=== PATIENT | male | born 1975 | race Caucasian/White ===

== ENCOUNTER 2017-06-19 21:11 | Emergency (ER) | payer MEDICARE, OTHER ==
[2017-06-19 21:40] VITALS: BP 140/88
[2017-06-19] MEDS ORDERED: TORAdol 30 mg Injection IM ONE (22:05)
[2017-06-19] MEDS ORDERED: Rocephin 1000 MG INJ IM ONE (22:06)
[2017-06-19] MEDS ORDERED: Rocephin 1000 MG INJ ONE (22:15)
[2017-06-19] MEDS ORDERED: TORAdol 30 mg Injection ONE (22:15)
[2017-06-19] MEDS ORDERED: XYLOCAINE 1% HCL 20 ML MDV ONE (22:15)
--- NOTE | 2017-06-19 22:18 | ERPHSYRPT ---
- History of Present Illness Time Seen by Provider: 06/19/17 22:15 Source: patient Exam Limitations: no limitations Patient Subjective Stated Complaint: tooth pulled 1 1/2 weeks ago. feels like it is infected. bottom left. states tongue is cracked and painful x 1 month Triage Nursing Assessment: alert and in no distress. pain in left lower teeth.. states tongue cracked. tongue is red and has ridges noted. denies fever. Physician History: tooth pulled 1 1/2 weeks ago. feels like it is infected. bottom left. states tongue is cracked and painful x 1 month Timing/Duration: day(s) Severity: moderate (tooth ache) Associated Symptoms: denies symptoms Allergies/Adverse Reactions: No Known Drug Allergies Allergy (Unverified 06/19/17 22:09) Immunizations Up to Date: Yes - Review of Systems Constitutional: No Symptoms Eyes: No Symptoms Ears, Nose, & Throat: Loose Teeth Respiratory: No Symptoms Cardiac: No Symptoms Abdominal/Gastrointestinal: No Symptoms - Past Medical History Pertinent Past Medical History: No - Past Surgical History Past Surgical History: No - Social History Smoking Status: Unknown if ever smoked Exposure to second hand smoke: No Drug Use: none Patient Lives Alone: No - Nursing Vital Signs Nursing Vital Signs: Initial Vital Signs Temperature 97.9 F 06/19/17 21:31 Pulse Rate 83 06/19/17 21:31 Respiratory Rate 18 06/19/17 21:31 Blood Pressure 140/88 06/19/17 21:31 O2 Sat by Pulse Oximetry 96 06/19/17 21:31 Pain Scale Pain Intensity 7 - Physical Exam General Appearance: no apparent distress Eye Exam: PERRL/EOMI Ears, Nose, Throat Exam: other (tooth abscess left lower gum) SpO2: 96 Oxygen Delivery: Room Air - Course Nursing assessment & vital signs reviewed: Yes Ordered Tests: Medication Summary Discontinued Medications Generic Name Dose Route Start Last Admin Trade Name Freq PRN Reason Stop Dose Admin Ceftriaxone Sodium 1,000 mg 06/19/17 22:06 Rocephin 1000 Mg Inj IM 06/19/17 22:07 STAT ONE Ketorolac Tromethamine 60 mg 06/19/17 22:05 Toradol 30 Mg Injection IM 06/19/17 22:06 STAT ONE - Progress Progress: unchanged Counseled pt/family regarding: diagnosis, need for follow-up (with dentist) - Departure Time of Disposition: 22:17 Departure Disposition: Home Clinical Impression: Abscessed tooth Condition: Stable Critical Care Time: No Referrals: ANA GIRARD MD [Primary Care Provider] - Instructions: Tooth Abscess (DC), Tooth Decay, Adult (DC) Additional Instructions: RACHELL RUBIO was seen on 06/19/17 n the Emergency Room. At that time you were treated for an emergent condition, during your visit Laboratory, Radiology and/or other procedures may have been ordered. It is very important that you follow-up with your Primary Care Physician ANA GIRARD within the next 24- 48 hours to review your Emergency Room visit and the final results of testing that was ordered. Some test results such as Urine Cultures, Blood Cultures, and other cultures if ordered will not be finalized for 24-48 hours. If you do not have a Primary Care Provider please call the medical records department at [phone] to obtain a copy of your results or you may sign into our patient portal to obtain these results by visiting us @ [email or web address] and completing the following steps: 1. Click on the Patient Portal link 2. Click the Patient Self Enrollment Link to complete the enrollment form and entering your 3. Once the enrollment form is completed you will receive an email with a temporary ID and password at the email address you provided. 4. Next choose a user name and password. Your user name must be at least 4 characters long and your password must be at least 4 characters long. 5. Choose a security question from the list and provide your answer to the question. If you already have signed into the Health Portal you may access your Health Care Information 09/11 by the following steps: 1. Login to our website @ [email or web address] 2. Enter your original user name and password. FAQS The [facility] Health Portal is an online tool that contains your Lab Results, Radiology Reports, Visit History, Discharge Instructions and Health Summary Lab and Radiology Results will not be available for 72 hours on the portal. The Portal is a secure site, passwords are encryted and URLs are re-written so they cannot be copied and pasted. You and authorized family members are the only ones who can access your Portal. Also there is a timeout feature that protects your information if you leave the Portal page open. If you have technical difficulty please use the Contact Us link on the page this will allow you to submit any questions you have regarding the Portal or you may contact the Medical Record Department at [phone]. Prescriptions: Amoxicillin 500 mg PO TID #30 tablet Naproxen 375 mg [Naprosyn 375 mg] 375 mg PO Q8H #30 tablet
[2017-06-19 22:42] VITALS: PULSE 76; O2SAT 98
== END 2017-06-19 22:42 | disposition home or self-care (01) ==
LOC: ED 21:11
DX: K04.7 Periapical abscess without sinus (principal); K08.89 Other specified disorders of teeth and supporting structures
CPT/HCPCS: 96372; 99284; J0696; J1885

== ENCOUNTER 2017-07-27 12:38 | Emergency (ER) | payer MEDICARE ==
--- NOTE | 2017-07-27 12:59 | ERPHSYRPT ---
- History of Present Illness Time Seen by Provider: 07/27/17 12:50 Source: patient Exam Limitations: no limitations Physician History: 41 y/o male comes to the ER with complaints of sore tongue, fatigue and difficulty swallowing since April. Pt has been using peroxide, viscous lidocaine and anti-inflammatories with no relief of pain. Pt describes the pain as burning, constant, 7/10 and admits that the pain has gotten worse. No fever, chills or weight loss. Timing/Duration: days Severity: severe ENT Location: mouth Prearrival Treatment: no prearrival treatment Modifying Factors: Improves With: nothing Allergies/Adverse Reactions: No Known Drug Allergies Allergy (Verified 07/27/17 12:48) Home Medications: Baclofen 10 mg [Lioresal 10 mg] 10 mg PO QID 07/27/17 [History] Benztropine Mesylate 2 mg PO QID 07/27/17 [History] Quetiapine Fumarate [Seroquel] 400 mg PO HS 07/27/17 [History] Sertraline HCl [Zoloft] 100 mg PO DAILY 07/27/17 [History] - Review of Systems Constitutional: Fatigue, Weakness, No Fever, No Chills Eyes: No Symptoms Ears, Nose, & Throat: Mouth Pain, Throat Pain Respiratory: No Cough, No Dyspnea Cardiac: No Chest Pain, No Edema, No Syncope Abdominal/Gastrointestinal: No Abdominal Pain, No Nausea, No Vomiting, No Diarrhea Genitourinary Symptoms: No Dysuria Musculoskeletal: No Back Pain, No Neck Pain Skin: No Rash Neurological: No Dizziness, No Focal Weakness, No Sensory Changes Psychological: No Symptoms Endocrine: No Symptoms All Other Systems: Reviewed and Negative - Past Medical History Pertinent Past Medical History: No - Past Surgical History Past Surgical History: No - Social History Smoking Status: Unknown if ever smoked Exposure to second hand smoke: No Drug Use: none Patient Lives Alone: No - Nursing Vital Signs Nursing Vital Signs: Initial Vital Signs Temperature 97.4 F 07/27/17 12:43 Pulse Rate 87 07/27/17 12:43 Respiratory Rate 16 07/27/17 12:43 Blood Pressure 113/89 07/27/17 12:43 O2 Sat by Pulse Oximetry 96 07/27/17 12:43 Pain Scale Pain Intensity 10 - Physical Exam General Appearance: no apparent distress, alert Eye Exam: bilateral eye: PERRL, EOMI Nasal Exam: normal inspection Throat Exam: tonsillar swelling, No tonsillar exudate Neck Exam: normal inspection, non-tender, supple Cardiovascular/Respiratory Exam: normal breath sounds, regular rate/rhythm Abdominal Exam: non-tender, soft Neurologic Exam: alert, oriented x 3, sensation nml, No motor deficits Skin Exam: normal color, warm, dry - Course Nursing assessment & vital signs reviewed: Yes Ordered Tests: Active Orders 24 hr Category Date Time Status CBC W DIFF Stat Lab 07/27/17 13:52 Completed CK-Creatinine Phosphokinase Stat Lab 07/27/17 13:52 Completed CMP Stat Lab 07/27/17 13:52 Completed CULTURE, THROAT Stat Lab 07/27/17 13:55 Received Erythrocyte Sedimentation Rate Stat Lab 07/27/17 13:52 Completed Folate (Folic Acid) Stat Lab 07/27/17 13:52 Completed MAGNESIUM Stat Lab 07/27/17 13:52 Completed [place] Screen Stat Lab 07/27/17 13:52 Completed STREP SCREEN-BETA A Stat Lab 07/27/17 13:55 Completed TSH, 3RD Generation Stat Lab 07/27/17 13:52 Completed Vitamin B12 Stat Lab 07/27/17 13:52 Completed Medication Summary Discontinued Medications Generic Name Dose Route Start Last Admin Trade Name Freq PRN Reason Stop Dose Admin Ketorolac Tromethamine 60 mg 07/27/17 13:32 07/27/17 13:38 Toradol 30 Mg Injection IM 07/27/17 13:33 60 mg STAT ONE Administration Ketorolac Tromethamine Confirm 07/27/17 13:34 Toradol 30 Mg Injection Administered 07/27/17 13:35 Dose 60 mg .ROUTE .STK-MED ONE Lab/Rad Data: Laboratory Result Diagrams 07/27/17 13:52 07/27/17 13:52 Laboratory Results 07/27/17 07/27/17 07/27/17 Range/Units 13:55 13:52 13:52 WBC (4.0-10.5) K/mm3 RBC (4.1-5.6) M/mm3 Hgb (12.5-18.0) gm/dl Hct (42-50) % MCV (78-100) fl MCH (26-32) pg MCHC (32-36) g/dl RDW (11.5-14.0) % Plt Count (150-450) K/mm3 MPV (6-9.5) fl Gran % (36.0-66.0) % Eos # (Auto) (0-0.5) Absolute Lymphs (auto) (1.0-4.6) Absolute Monos (auto) (0.0-1.3) Lymphocytes % (24.0-44.0) % Monocytes % (0.0-12.0) % Eosinophils % (0.00-5.0) % Basophils % (0.0-0.4) % Absolute Granulocytes (1.4-6.9) Basophils # (0-0.4) ESR (0-15) mm/hr Sodium 140 (137-145) mmol/L Potassium 4.1 (3.5-5.1) mmol/L Chloride 102 (98-107) mmol/L Carbon Dioxide 28 (22-30) mmol/L Anion Gap 14.5 (5-15) MEQ/L BUN 15 (9-20) mg/dL Creatinine 0.72 (0.66-1.25) mg/dL Estimated GFR > 60.0 ML/MIN Glucose 100 (74-106) mg/dL Calcium 9.3 (8.4-10.2) mg/dL Magnesium 2.0 (1.6-2.3) mg/dL Total Bilirubin 0.20 (0.2-1.3) mg/dL AST 60 H (17-59) U/L ALT 66 H (0-50) U/L Alkaline Phosphatase 90 (38-126) U/L Creatine Kinase 72 (55-170) U/L Serum Total Protein 7.5 (6.3-8.2) g/dL Albumin 4.2 (3.5-5.0) g/dL Vitamin B12 > 1000 H (239-931) pg/mL Folic Acid > 20.0 (2.76 - >20) ng/mL TSH 3rd Generation 0.778 (0.47-4.68) mIU/L Monoscreen NEGATIVE (Negative) Streptococcus Screen NEGATIVE (Negative) 07/27/17 Range/Units 13:52 WBC 5.3 (4.0-10.5) K/mm3 RBC 4.60 (4.1-5.6) M/mm3 Hgb 14.1 (12.5-18.0) gm/dl Hct 41.0 L (42-50) % MCV 89.1 (78-100) fl MCH 30.7 (26-32) pg MCHC 34.4 (32-36) g/dl RDW 13.9 (11.5-14.0) % Plt Count 233 (150-450) K/mm3 MPV 9.6 H (6-9.5) fl Gran % 63.3 (36.0-66.0) % Eos # (Auto) 0.06 (0-0.5) Absolute Lymphs (auto) 1.32 (1.0-4.6) Absolute Monos (auto) 0.52 (0.0-1.3) Lymphocytes % 25.1 (24.0-44.0) % Monocytes % 9.9 (0.0-12.0) % Eosinophils % 1.1 (0.00-5.0) % Basophils % 0.6 (0.0-0.4) % Absolute Granulocytes 3.33 (1.4-6.9) Basophils # 0.03 (0-0.4) ESR 11 (0-15) mm/hr Sodium (137-145) mmol/L Potassium (3.5-5.1) mmol/L Chloride (98-107) mmol/L Carbon Dioxide (22-30) mmol/L Anion Gap (5-15) MEQ/L BUN (9-20) mg/dL Creatinine (0.66-1.25) mg/dL Estimated GFR ML/MIN Glucose (74-106) mg/dL Calcium (8.4-10.2) mg/dL Magnesium (1.6-2.3) mg/dL Total Bilirubin (0.2-1.3) mg/dL AST (17-59) U/L ALT (0-50) U/L Alkaline Phosphatase (38-126) U/L Creatine Kinase (55-170) U/L Serum Total Protein (6.3-8.2) g/dL Albumin (3.5-5.0) g/dL Vitamin B12 (239-931) pg/mL Folic Acid (2.76 - >20) ng/mL TSH 3rd Generation (0.47-4.68) mIU/L Monoscreen (Negative) Streptococcus Screen (Negative) - Progress Progress: unchanged Progress Note: 07/27/17 15:42 The labs are all within normal limits, including strep, mono, folate and vitamin B12. Pt will be referred to a machine driller and was advised to start on oragel. - Departure Time of Disposition: 15:43 Departure Disposition: Home Clinical Impression: Mouth sores Condition: Stable Critical Care Time: No Referrals: DOCTOR,NO FAMILY [Primary Care Provider] - MANSI JOY MD [NON-STAFF PHY W/O PRIVILEGES] - Instructions: Mouth Sores (DC) Additional Instructions: Follow up with machine driller, Dr Joy in the next few days for further recommendations. You can use Oragel over the counter for symptomatic relief. Prescriptions: Saliva Stimulant Comb. No.4 [Dry Mouth] 45 ml MM BID #1 spray
[2017-07-27] MEDS ORDERED: TORAdol 30 mg Injection IM ONE (13:32)
[2017-07-27] MEDS ORDERED: TORAdol 30 mg Injection ONE (13:34)
[2017-07-27 13:44] VITALS: BP 113/84; PULSE 78; O2SAT 100
[2017-07-27 14:29] LABS: ALBUMIN 4.2 g/dL (3.5-5.0); ALKALINE PHOSPHATASE 90 U/L (38-126); ANION GAP 14.5 MEQ/L (5-15); BLOOD UREA NITROGEN 15 mg/dL (9-20); CHLORIDE 102 mmol/L (98-107); CK-Creatinine Phosphokinase 72 U/L (55-170); Calcium 9.3 mg/dL (8.4-10.2); Carbon Dioxide 28 mmol/L (22-30); Creatinine 1 0.72 mg/dL (0.66-1.25); Glucose 100 mg/dL (74-106); Potassium 4.1 mmol/L (3.5-5.1); SGOT/AST 60 U/L (17-59); SGPT/ALT 66 U/L (0-50); SODIUM 140 mmol/L (137-145); Total Protein 7.5 g/dL (6.3-8.2)
[2017-07-27 14:58] LABS: TSH, 3RD Generation 0.778 mIU/L (0.47-4.68)
[2017-07-27 15:02] LABS: BASOPHIL % 0.6 % (0.0-0.4); Basophil (Absolute #) 0.03 (0-0.4); Eosinophil % 1.1 % (0.00-5.0); Eosinophil (Absolute #) 0.06 (0-0.5); Granulocyte Absolute (ANC) 3.33 (1.4-6.9); Granulocytes % 63.3 % (36.0-66.0); Hemoglobin 14.1 gm/dl (12.5-18.0); Lymphocyte (Absolute #) 1.32 (1.0-4.6); Lymphocytes % 25.1 % (24.0-44.0); Mean Cell Volume 89.1 fl (78-100); Mean Corpuscular Hemoglobin 30.7 pg (26-32); Mean Corpuscular Hgb Concent. 34.4 g/dl (32-36); Mean Platelet Volume 9.6 fl (6-9.5); Monocyte (Absolute #) 0.52 (0.0-1.3); Monocytes % 9.9 % (0.0-12.0); Platelet Count 233 K/mm3 (150-450); Red Cell Distribution Width 13.9 % (11.5-14.0); White Blood Count 5.3 K/mm3 (4.0-10.5)
[2017-07-27 15:24] LABS: Erythrocyte Sedimentation Rate 11 mm/hr (0-15)
[2017-07-27 15:35] LABS: Folate (Folic Acid) > 20.0 ng/mL (2.76 - >20); Vitamin B12 > 1000 pg/mL (239-931)
== END 2017-07-27 15:59 | disposition home or self-care (01) ==
LOC: ED 12:38
DX: K13.70 Unspecified lesions of oral mucosa (principal); Z79.899 Other long term (current) drug therapy
CPT/HCPCS: 36415; 80053; 82550; 82607; 82746; 83735; 84443; 85025; 85652; 86308; 87070; 87430; 96372; 96374; 99282; 99284; J1885

== ENCOUNTER 2019-03-30 23:03 | Emergency (ER) | payer MEDICARE ==
[2019-03-30 23:22] VITALS: O2SAT 95
--- NOTE | 2019-03-30 23:42 | ERPHSYRPT ---
- History of Present Illness Time Seen by Provider: 03/30/19 23:21 Patient Subjective Stated Complaint: pt c/o tooth pain and cracked tongue and chest vibrating a few times lately. Triage Nursing Assessment: pt c/o tooth pain on rt side upper middle x2 months and cracked tongue x2 yrs which is very sore/tender to eat anything. Pt c/o "vibration" to chest a few times lately, which is at times "stabbing". Physician History: Patient states he has chronic tooth pain for several months. He is getting it pulled on . He complains of some increasing pain this last week. He has not seen his PCP or dentist for this. Pain states he has intermittent " chest vibrations" for several weeks. No chest pain, no SOB, no N/V, no other anginal equivalents. Timing/Duration: weeks Severity: mild ENT Location: dental Prearrival Treatment: over the counter meds Modifying Factors: Improves With: activity Associated Symptoms: denies symptoms Allergies/Adverse Reactions: bee pollen Allergy (Intermediate, Verified 03/30/19 23:30) Swelling Home Medications: Baclofen 10 mg [Lioresal 10 mg] 10 mg PO QID 07/27/17 [History] Benztropine Mesylate 2 mg PO QID 07/27/17 [History] Quetiapine Fumarate [Seroquel] 800 mg PO HS 07/27/17 [History] Sertraline HCl [Zoloft] 200 mg PO DAILY 07/27/17 [History] Propranolol HCl 10 mg PO BID 03/30/19 [History] Hx Tetanus, Diphtheria Vaccination/Date Given: Yes Hx Influenza Vaccination/Date Given: No Hx Pneumococcal Vaccination/Date Given: No Immunizations Up to Date: Yes - Review of Systems Constitutional: No Fever, No Chills Eyes: No Symptoms Ears, Nose, & Throat: No Symptoms Respiratory: No Cough, No Dyspnea Cardiac: No Chest Pain, No Edema, No Syncope Abdominal/Gastrointestinal: No Abdominal Pain, No Nausea, No Vomiting, No Diarrhea Genitourinary Symptoms: No Dysuria Musculoskeletal: No Back Pain, No Neck Pain Skin: No Rash Neurological: No Dizziness, No Focal Weakness, No Sensory Changes Psychological: No Symptoms Endocrine: No Symptoms All Other Systems: Reviewed and Negative - Past Medical History Pertinent Past Medical History: Yes Neurological History: Migraines ENT History: No Pertinent History Cardiac History: Angina Respiratory History: Bronchitis, Other Musculoskeletal History: Fractures GI Medical History: GERD History: No Pertinent History Psycho-Social History: Anxiety, Depression, Other Male Reproductive Disorders: No Pertinent History Other Medical History: schizo affective disorder, 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 - Past Surgical History Past Surgical History: Yes Neuro Surgical History: No Pertinent History Cardiac: No Pertinent History Respiratory: No Pertinent History Gastrointestinal: No Pertinent History Genitourinary: No Pertinent History Musculoskeletal: Orthopedic Surgery Male Surgical History: No Pertinent History Other Surgical History: fracture left orbit 2018 - Social History Smoking Status: Never smoker Exposure to second hand smoke: Yes Drug Use: none Patient Lives Alone: No - Nursing Vital Signs Nursing Vital Signs: Initial Vital Signs Temperature 97.4 F 03/30/19 23:20 Pulse Rate 69 03/30/19 23:20 Respiratory Rate 17 03/30/19 23:20 Blood Pressure 128/82 03/30/19 23:20 O2 Sat by Pulse Oximetry 95 03/30/19 23:20 Pain Scale Pain Intensity 7 - Physical Exam General Appearance: no apparent distress, alert Eye Exam: bilateral eye: PERRL, EOMI Nasal Exam: normal inspection Throat Exam: normal (Poor dentition. No oral swelling or airway obstruction. No obvious abscess or infection. ), pharynx normal, moist mucus membranes, No tonsillar exudate Neck Exam: supple Cardiovascular/Respiratory Exam: normal breath sounds, regular rate/rhythm Abdominal Exam: non-tender, soft Neurologic Exam: alert, oriented x 3, sensation nml, No motor deficits Skin Exam: normal color, warm, dry SpO2: 95 Ordered Tests: Active Orders 24 hr Category Date Time Status EKG STAT RT 03/30/19 23:41 Active - Progress Progress: improved Progress Note: 03/31/19 00:02 We will obtain a screen EKG for "chest vibrations." Although, I have a lower suspicion for ACS in the setting of no other anginal equivalents. 03/31/19 00:20 EKG shows NSR without STEMI or arrhythmia. We will discharge patient home at this point in time. Close follow up with PCP. - Departure Departure Disposition: Home Clinical Impression: Pain, dental, chest vibrations Condition: Stable Critical Care Time: No Referrals: BERENICE MUNOZ [Primary Care Provider] -
[2019-03-31 00:26] VITALS: BP 124/78; PULSE 71
== END 2019-03-31 00:22 | disposition home or self-care (01) ==
LOC: ED 23:03
DX: K08.89 Other specified disorders of teeth and supporting structures (principal); R07.89 Other chest pain; Z79.899 Other long term (current) drug therapy
CPT/HCPCS: 99283

== ENCOUNTER 2019-11-29 10:58 | Emergency (ER) | payer MEDICARE ==
[2019-11-29] MEDS ORDERED: TORAdol 30 mg Injection IV ONE (11:32)
[2019-11-29] MEDS ORDERED: Sodium Chloride 0.9% 1000 ML 1,000 ML IV STA ×2 (11:32→13:29)
[2019-11-29] MEDS ORDERED: Sodium Chloride 0.9% 1000 ML 1,000 ML ONE ×2 (11:39→13:31)
[2019-11-29] MEDS ORDERED: TORAdol 30 mg Injection ONE (11:39)
[2019-11-29 11:49] LABS: Absolute Neutrophil Ct (ANC) 3.26 (1.4-6.9); BASOPHIL % 0.2 % (0.0-0.4); Basophil (Absolute #) 0.01 (0-0.4); Eosinophil % 2.4 % (0.00-5.0); Eosinophil (Absolute #) 0.12 (0-0.5); Hematocrit 42.2 % (42-50); Hemoglobin 14.1 gm/dl (12.5-18.0); Lymphocyte (Absolute #) 1.33 (1.0-4.6); Lymphocytes % 26.3 % (24.0-44.0); Mean Cell Volume 90.8 fl (78-100); Mean Corpuscular Hemoglobin 30.3 pg (26-32); Mean Corpuscular Hgb Concent. 33.4 g/dl (32-36); Mean Platelet Volume 9.4 fl (7.5-11.0); Monocyte (Absolute #) 0.34 (0.0-1.3); Monocytes % 6.7 % (0.0-12.0); Neutrophil % 64.4 % (36.0-66.0); Platelet Count 238 K/mm3 (150-450); Red Blood Count 4.65 M/mm3 (4.1-5.6); Red Cell Distribution Width 13.3 % (11.5-14.0); White Blood Count 5.1 K/mm3 (4.0-10.5)
[2019-11-29 11:57] LABS: ALBUMIN 4.5 g/dL (3.5-5.0); ALKALINE PHOSPHATASE 77 U/L (38-126); ANION GAP 14.5 MEQ/L (5-15); BLOOD UREA NITROGEN 19 mg/dL (9-20); CHLORIDE 104 mmol/L (98-107); Calcium 9.3 mg/dL (8.4-10.2); Carbon Dioxide 24 mmol/L (22-30); Glucose 138 mg/dL (74-106); LIPASE 134 U/L (23-300); Potassium 4.3 mmol/L (3.5-5.1); SGOT/AST 50 U/L (17-59); SGPT/ALT 47 U/L (0-50); SODIUM 138 mmol/L (137-145); Total Protein 8.3 g/dL (6.3-8.2)
[2019-11-29 12:07] LABS: Appearance SLIGHTLY CLOUDY (CLEAR); Bilirubin NEGATIVE (NEGATIVE); Blood NEGATIVE Ery/ul (0-5); Glucose NEGATIVE (NEGATIVE); Ketones NEGATIVE (NEGATIVE); Leukocyte Esterase NEGATIVE (NEGATIVE); Mucus SLIGHT /HPF (NEGATIVE); Nitrite NEGATIVE (NEGATIVE); Protein,Urine Dip 30 (Negative); Specific Gravity 1.019 (1.005-1.025); Sperm PRESENT /HPF (NEGATIVE); Urobilinogen NEGATIVE mg/dL (0-1)
--- NOTE | 2019-11-29 12:27 | ERPHSYRPT ---
- History of Present Illness Time Seen by Provider: 11/29/19 11:14 Historian: patient Exam Limitations: no limitations Patient Subjective Stated Complaint: pt here for falnk pain to right side for a month now, getting worse, no difculty urination, no fever Triage Nursing Assessment: pt alert, resp easy, has face mask on, walked in, skin w/d/p. no edema , abd soft Physician History: 74 years old male presented in the ER with chief complaint of right flank pain off and on for the last 30 days with progressive worsening. Pain is nonradiating, moderate intensity, sharp nature without any significant known aggravating relieving factors, not associated with any urinary symptoms. Timing/Duration: day(s) (30), intermittent, worse Activities at Onset: rest Quality: dullness, sharpness Abdominal Pain Onset Location: flank, other (right SIJ area) Pain Radiation: no radiation Severity of Pain-Max: moderate Severity of Pain-Current: moderate Modifying Factors: Improves With: movement Associated Symptoms: denies symptoms Previous symptoms: same symptoms as today Allergies/Adverse Reactions: bee pollen Allergy (Intermediate, Verified 11/29/19 11:16) Swelling Home Medications: Baclofen 10 mg [Lioresal 10 mg] 10 mg PO QID 07/27/17 [History] Benztropine Mesylate 2 mg PO QID 07/27/17 [History] Quetiapine Fumarate [Seroquel] 800 mg PO HS 07/27/17 [History] Sertraline HCl [Zoloft] 200 mg PO DAILY 07/27/17 [History] Propranolol HCl 10 mg PO BID 03/30/19 [History] Lomita Carbonate 300 mg [Lomita Carbonate 300 MG] 400 mg DAILY 11/29/19 [History] Hx Tetanus, Diphtheria Vaccination/Date Given: Yes Hx Influenza Vaccination/Date Given: Yes Hx Pneumococcal Vaccination/Date Given: No Immunizations Up to Date: Yes Travel Risk - International Travel Have you traveled outside of the country in past 3 weeks: No - Coronavirus Screening Are you exhibiting any of the following symptoms?: No Close contact with a COVID-19 positive Pt in past 14-21 Days: No - Review of Systems Constitutional: No Symptoms Eyes: No Symptoms Ears, Nose, & Throat: No Symptoms Respiratory: No Symptoms Cardiac: No Symptoms Abdominal/Gastrointestinal: Abdominal Pain Genitourinary Symptoms: No Symptoms Musculoskeletal: Back Pain Skin: No Symptoms Neurological: No Symptoms Psychological: No Symptoms Endocrine: No Symptoms Hematologic/Lymphatic: No Symptoms Immunological/Allergic: No Symptoms - Past Medical History Pertinent Past Medical History: Yes Neurological History: Migraines ENT History: No Pertinent History Cardiac History: Angina Respiratory History: Bronchitis, Other Musculoskeletal History: Fractures GI Medical History: GERD History: No Pertinent History Psycho-Social History: Anxiety, Depression, Other Male Reproductive Disorders: No Pertinent History Other Medical History: schizo affective disorder, 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 - Past Surgical History Past Surgical History: Yes Neuro Surgical History: No Pertinent History Cardiac: No Pertinent History Respiratory: No Pertinent History Gastrointestinal: No Pertinent History Genitourinary: No Pertinent History Musculoskeletal: Orthopedic Surgery Male Surgical History: No Pertinent History Other Surgical History: fracture left orbit 2018 - Social History Smoking Status: Never smoker Exposure to second hand smoke: No Drug Use: none Patient Lives Alone: No - Nursing Vital Signs Nursing Vital Signs: Initial Vital Signs Pulse Rate 79 11/29/19 12:10 Respiratory Rate 22 11/29/19 12:10 Blood Pressure 97/71 11/29/19 12:10 O2 Sat by Pulse Oximetry 95 11/29/19 12:10 Pain Scale Pain Intensity 4 - Physical Exam General Appearance: no apparent distress, alert Eye Exam: PERRL/EOMI, eyes nml inspection Ears, Nose, Throat Exam: normal ENT inspection, pharynx normal Neck Exam: normal inspection, supple, full range of motion Respiratory Exam: normal breath sounds, lungs clear Cardiovascular Exam: regular rate/rhythm, normal heart sounds Gastrointestinal/Abdomen Exam: soft, normal bowel sounds, tenderness (Right flank), No guarding, No rebound Back Exam: normal inspection, normal range of motion Extremity Exam: normal inspection, normal range of motion, pelvis stable Neurologic Exam: alert, oriented x 3, cooperative Skin Exam: normal color, warm SpO2 Interpretation: normal SpO2: 95 O2 Delivery: Room Air - Course Nursing assessment & vital signs reviewed: Yes Ordered Tests: Active Orders 24 hr Category Date Time Status IV Insertion STAT Care 11/29/19 11:32 Completed NPO (ED) STAT Care 11/29/19 11:32 Completed ABDOMEN AND PELVIS W/0 CONTRAS [CT] Stat Exams 11/29/19 11:59 Completed CBC W DIFF Stat Lab 11/29/19 11:30 Completed CMP Stat Lab 11/29/19 11:30 Completed LIPASE Stat Lab 11/29/19 11:30 Completed UA W/RFX UR CULTURE Stat Lab 11/29/19 11:38 Completed Medication Summary Discontinued Medications Generic Name Dose Route Start Last Admin Trade Name Henrietta PRN Reason Stop Dose Admin Sodium Chloride 1,000 mls @ 999 mls/hr 11/29/19 11:32 11/29/19 13:01 Sodium Chloride 0.9% 1000 Ml IV 11/29/19 12:32 Infused .Q1H1M STA Infusion Sodium Chloride Confirm 11/29/19 11:39 Sodium Chloride 0.9% 1000 Ml Administered 11/29/19 11:40 Dose 1,000 mls @ ud .ROUTE .STK-MED ONE Sodium Chloride 1,000 mls @ 999 mls/hr 11/29/19 13:29 11/29/19 13:32 Sodium Chloride 0.9% 1000 Ml IV 11/29/19 14:29 999 mls/hr .Q1H1M STA Administration Sodium Chloride Confirm 11/29/19 13:31 Sodium Chloride 0.9% 1000 Ml Administered 11/29/19 13:32 Dose 1,000 mls @ ud .ROUTE .STK-MED ONE Ketorolac Tromethamine 30 mg 11/29/19 11:32 11/29/19 11:43 Toradol 30 Mg Injection IV 11/29/19 11:33 30 mg STAT ONE Administration Ketorolac Tromethamine Confirm 11/29/19 11:39 Toradol 30 Mg Injection Administered 11/29/19 11:40 Dose 30 mg .ROUTE .STK-MED ONE Morphine Sulfate 4 mg 11/29/19 12:54 11/29/19 13:02 Morphine Sulfate 4 Mg Inj IV 11/29/19 12:55 4 mg STAT ONE Administration Morphine Sulfate Confirm 11/29/19 13:01 Morphine Sulfate 4 Mg Inj Administered 11/29/19 13:02 Dose 4 mg .ROUTE .STK-MED ONE Ondansetron HCl 4 mg 11/29/19 12:54 11/29/19 13:02 Zofran 4 Mg/2 Ml Vial IV 11/29/19 12:55 4 mg STAT ONE Administration Ondansetron HCl Confirm 11/29/19 13:01 Zofran 4 Mg/2 Ml Vial Administered 11/29/19 13:02 Dose 4 mg .ROUTE .STK-MED ONE Lab/Rad Data: Laboratory Result Diagrams 11/29/19 11:30 11/29/19 11:30 Laboratory Results 11/29/19 11/29/19 11/29/19 Range/Units 11:38 11:30 11:30 WBC 5.1 (4.0-10.5) K/mm3 RBC 4.65 (4.1-5.6) M/mm3 Hgb 14.1 (12.5-18.0) gm/dl Hct 42.2 (42-50) % MCV 90.8 (78-100) fl MCH 30.3 (26-32) pg MCHC 33.4 (32-36) g/dl RDW 13.3 (11.5-14.0) % Plt Count 238 (150-450) K/mm3 MPV 9.4 (7.5-11.0) fl Gran % 64.4 (36.0-66.0) % Eos # (Auto) 0.12 (0-0.5) Absolute Lymphs (auto) 1.33 (1.0-4.6) Absolute Monos (auto) 0.34 (0.0-1.3) Lymphocytes % 26.3 (24.0-44.0) % Monocytes % 6.7 (0.0-12.0) % Eosinophils % 2.4 (0.00-5.0) % Basophils % 0.2 (0.0-0.4) % Absolute Granulocytes 3.26 (1.4-6.9) Basophils # 0.01 (0-0.4) Sodium 138 (137-145) mmol/L Potassium 4.3 (3.5-5.1) mmol/L Chloride 104 (98-107) mmol/L Carbon Dioxide 24 (22-30) mmol/L Anion Gap 14.5 (5-15) MEQ/L BUN 19 (9-20) mg/dL Creatinine 0.80 (0.66-1.25) mg/dL Estimated GFR > 60.0 ML/MIN Glucose 138 H (74-106) mg/dL Calcium 9.3 (8.4-10.2) mg/dL Total Bilirubin 0.80 (0.2-1.3) mg/dL AST 50 (17-59) U/L ALT 47 (0-50) U/L Alkaline Phosphatase 77 (38-126) U/L Serum Total Protein 8.3 H (6.3-8.2) g/dL Albumin 4.5 (3.5-5.0) g/dL Lipase 134 (23-300) U/L Urine Color YELLOW (YELLOW) Urine Appearance SLIGHTLY CLOUDY (CLEAR) Urine pH 6.0 (5-6) Ur Specific Fowler 1.019 (1.005-1.025) Urine Protein 30 (Negative) Urine Ketones NEGATIVE (NEGATIVE) Urine Blood NEGATIVE (0-5) Volodymyr/ul Urine Nitrite NEGATIVE (NEGATIVE) Urine Bilirubin NEGATIVE (NEGATIVE) Urine Urobilinogen NEGATIVE (0-1) mg/dL Ur Leukocyte Esterase NEGATIVE (NEGATIVE) Urine WBC (Auto) 6-10 (0-5) /HPF Urine RBC (Auto) 3-5 (0-2) /HPF U Epithel Cells (Auto) NONE (FEW) /HPF Urine Bacteria (Auto) NONE (NEGATIVE) /HPF Urine Mucus (Auto) SLIGHT (NEGATIVE) /HPF Urine Sperm (Auto) PRESENT (NEGATIVE) /HPF Urine Culture Reflexed NO (NO) Urine Glucose NEGATIVE (NEGATIVE) mg/dL - Progress Progress: improved, re-examined Progress Note: 11/29/19 13:23 Years old is evaluated for 1 month history of intermittent right flank/right lower back pain. He is given Toradol along with morphine he does not have any right lower quadrant tenderness. Aon reevaluation feeling better. Ruled out st one, obstruction but does have some element of constipation. Normal white count, grossly unremarkable chemistries. I believe patient's pain is more of a musculoskeletal, recommended taking NSAIDs and outpatient follow-up. Discussed signs symptoms of worsening needing return to ER which he seems understanding. Patient was hypotensive after given morphine. He is given a second bolus and blood pressure improved and pain continued to remain improved. Stable for discharge. Counseled pt/family regarding: lab results, diagnosis, need for follow-up, rad results - Departure Departure Disposition: Home Clinical Impression: Flank pain Constipation Qualifiers: Constipation type: unspecified constipation type Qualified Code(s): K59.00 - Constipation, unspecified Condition: Stable Critical Care Time: No Referrals: BERENICE MUNOZ [Primary Care Provider] - Follow Up with PCP/3 days Instructions: Flank Pain Additional Instructions: Drink plenty of fluids. Take Tylenol/ibuprofen as needed. Follow-up with your primary care physician for reevaluation. Return to ER for worsening pain, vomiting or difficulty urination. Take MiraLAX daily. Prescriptions: Ibuprofen 600 mg PO Q6HPRN PRN 10 Days #20 tablet PRN Reason: Pain Polyethylene Glycol 3350 17 gm [Miralax Powder 17GM PACKET] 17 gm PO DAILY PRN 30 Days #30 packet PRN Reason: Constipation
[2019-11-29] MEDS ORDERED: MORPHINE SULFATE 4 MG INJ IV ONE (12:54)
[2019-11-29] MEDS ORDERED: Zofran 4 MG/2 ML VIAL IV ONE (12:54)
--- NOTE | 2019-11-29 12:55 | XRAY ---
Exam: CT of the abdomen and pelvis without IV contrast from 11/29/2019. CTDI: 19.76 mGy Comparison: None. Indication: 44-year-old male with right flank pain and problems urinating for one month; no history of prior abdominal surgery. Technique: Non-IV contrast axial images were obtained through the abdomen and pelvis. Reconstructed coronal and sagittal images were created and reviewed. Findings: The lung bases appear clear, except for some minimal linear atelectasis/scarring at the anterior lateral left lung base. Diffuse hepatic steatosis is seen. Assessment of the solid organs is limited without the use of IV contrast, but no gross hepatic mass or intrahepatic biliary duct distention is seen. The gallbladder is distended and reveals no dense calcifications within it. The spleen is minimally enlarged measuring 14.0 cm in greatest transverse diameter on axial image #48 of series 2. No focal splenic mass is seen. Incidentally, there is a small amount of high attenuation material within the posterior dependent portion of the gastric antrum and the distal descending duodenum. This probably represents medication. Fluid and/or secretions are noted filling most of the stomach lumen. Scattered stool is seen throughout the colon. The bowel appears nonobstructed. A relatively long appendix is seen containing some air and fecal debris within it. There are no findings of appendicitis. The pancreas and adrenal glands appear unremarkable. The kidneys appear of normal size and shape. No renal calculi, hydronephrosis, or definite renal mass is seen. The ureters appear of unremarkable diameter and reveal no ureterolith. The urinary bladder is mildly distended and reveals no urinary bladder stone. Mild atherosclerotic vascular calcification is seen within the proximal common iliac arteries. No abdominal aortic aneurysm or abnormal retroperitoneal lymphadenopathy is seen. Abundant intraperitoneal fat is seen. There is no free intraperitoneal air. Minimal protrusion of intraperitoneal fat into the subcutaneous fat is seen at the level of the umbilicus on the midline sagittal image #117. No definite ventral hernia is seen. The pelvis reveals no suspicious mass, enlarged pelvic lymph nodes, or free intraperitoneal fluid. The seminal vesicles and prostate gland appear unremarkable. Small nonspecific postinflammatory lymph nodes are seen within each groin. The inguinal canals appear unremarkable. The skeleton reveals no acute fracture or aggressive bone lesion. Minimal spurring is seen at the anterior margin of both sacroiliac joints. Mild facet joint arthropathy is seen at L5-S1 bilaterally. Mild generalized thoracic spondylosis is seen within the lower thoracic spine. Impression: 1. No acute intra-abdominal or pelvic process is seen. Specifically, I see no evidence of renal or ureteral stones, hydronephrosis, or other evidence of obstructive uropathy. No urinary bladder stone is seen. 2. Diffuse hepatic steatosis. 3. Minimal splenomegaly with greater transverse transverse diameter measuring 14.0 cm. 4. Mild scattered colonic stool retention. There is no evidence of appendicitis or bowel obstruction. 5. No free intraperitoneal air or free intraperitoneal fluid is seen.
[2019-11-29] MEDS ORDERED: MORPHINE SULFATE 4 MG INJ ONE (13:01)
[2019-11-29] MEDS ORDERED: Zofran 4 MG/2 ML VIAL ONE (13:01)
[2019-11-29 14:01] VITALS: BP 94/66; PULSE 78
[2019-11-29 21:39] VITALS: O2SAT 95
== END 2019-11-29 14:50 | disposition home or self-care (01) ==
LOC: ED 10:58
DX: R10.9 Unspecified abdominal pain (principal); K59.00 Constipation, unspecified; Z79.899 Other long term (current) drug therapy
CPT/HCPCS: 36000; 36415; 74176; 80053; 81001; 83690; 85025; 96360; 96374; 96375; 99284; J1885; J2270; J2405

== ENCOUNTER 2020-07-28 09:20 | Emergency (ER) | payer MEDICARE ==
--- NOTE | 2020-07-28 09:59 | ERPHSYRPT ---
- History of Present Illness Time Seen by Provider: 07/28/20 09:57 Source: patient Exam Limitations: no limitations Patient Subjective Stated Complaint: Back pain Triage Nursing Assessment: Patient ambulated back to ED and transferred self to bed. Patient A+O X3. Patient's skin pink, warm and dry. Patient complains of right sided back pain constant cramping that radiates to his right buttock. Patient denies injury or trauma to area. No bruising or visible injuries noted. Patient also complains of chest pain occasional sharp pain on and off for the past month. EKG obtained at this moment. Physician History: Patient complains of right sided back pain constant cramping that radiates to his right buttock. Patient denies injury or trauma to area. Denies any bruising or injuries noted. Patient also complains of chest pain occasional sharp pain on and off for the past month. Any radiation of chest pain or shortness of breath Timing/Duration: week(s) (4-5 weeks) Severity: mild Associated Symptoms: chest pain Allergies/Adverse Reactions: bee pollen Allergy (Intermediate, Verified 07/28/20 09:29) Swelling Home Medications: Baclofen 10 mg [Lioresal 10 mg] 10 mg PO QID 07/27/17 [History] Benztropine Mesylate 2 mg PO QID 07/27/17 [History] Quetiapine Fumarate [Seroquel] 800 mg PO HS 07/27/17 [History] Sertraline HCl [Zoloft] 200 mg PO DAILY 07/27/17 [History] Propranolol HCl 10 mg PO BID 03/30/19 [History] [place] Carbonate 300 mg [[place] Carbonate 300 MG] 400 mg DAILY 11/29/19 [History] Hx Tetanus, Diphtheria Vaccination/Date Given: Yes Hx Influenza Vaccination/Date Given: Yes Hx Pneumococcal Vaccination/Date Given: No Immunizations Up to Date: Yes Travel Risk - International Travel Have you traveled outside of the country in past 3 weeks: No - Coronavirus Screening Are you exhibiting any of the following symptoms?: No Close contact with a COVID-19 positive Pt in past 14-21 Days: No - Vaccine Status Have you recieved a Covid-19 vaccination: No - Review of Systems Constitutional: No Fever, No Chills Eyes: No Symptoms Ears, Nose, & Throat: No Symptoms Respiratory: No Cough, No Dyspnea Cardiac: Chest Pain, No Edema, No Syncope Abdominal/Gastrointestinal: No Abdominal Pain, No Nausea, No Vomiting, No Diarrhea Genitourinary Symptoms: Hesitancy, No Dysuria Musculoskeletal: Back Pain, No Neck Pain Skin: No Rash Neurological: No Dizziness, No Focal Weakness, No Sensory Changes Psychological: No Symptoms Endocrine: No Symptoms All Other Systems: Reviewed and Negative - Past Medical History Pertinent Past Medical History: Yes Neurological History: Migraines ENT History: No Pertinent History Cardiac History: Angina Respiratory History: Bronchitis, Other Musculoskeletal History: Fractures GI Medical History: GERD History: No Pertinent History Psycho-Social History: Anxiety, Depression, Other Male Reproductive Disorders: No Pertinent History Other Medical History: schizo affective disorder, 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 - Past Surgical History Past Surgical History: Yes Neuro Surgical History: No Pertinent History Cardiac: No Pertinent History Respiratory: No Pertinent History Gastrointestinal: No Pertinent History Genitourinary: No Pertinent History Musculoskeletal: Orthopedic Surgery Male Surgical History: No Pertinent History Other Surgical History: fracture left orbit 2017 - Social History Smoking Status: Never smoker Exposure to second hand smoke: No Drug Use: none Patient Lives Alone: No - Nursing Vital Signs Nursing Vital Signs: Initial Vital Signs Temperature 97.5 F 07/28/20 09:29 Pulse Rate 78 07/28/20 09:29 Respiratory Rate 18 07/28/20 09:29 Blood Pressure 122/75 07/28/20 09:29 O2 Sat by Pulse Oximetry 97 07/28/20 09:29 Pain Scale Pain Intensity 10 - Physical Exam General Appearance: no apparent distress, alert Eye Exam: PERRL/EOMI, eyes nml inspection Ears, Nose, Throat Exam: normal ENT inspection, TMs normal, pharynx normal, moist mucous membranes Neck Exam: normal inspection, non-tender, supple, full range of motion Respiratory Exam: normal breath sounds, lungs clear, No respiratory distress Cardiovascular Exam: regular rate/rhythm, normal heart sounds, normal peripheral pulses Gastrointestinal/Abdomen Exam: soft, normal bowel sounds, No tenderness, No mass Back Exam: normal inspection, normal range of motion, muscle spasm, other (leg raising test negative), No CVA tenderness, No vertebral tenderness Extremity Exam: normal inspection, normal range of motion, pelvis stable Neurologic Exam: alert, oriented x 3, cooperative, normal mood/affect, nml cerebellar function, nml station & gait, sensation nml, No motor deficits Skin Exam: normal color, warm, dry, No rash Lymphatic Exam: No adenopathy SpO2: 97 - Course Nursing assessment & vital signs reviewed: Yes EKG Interpreted by Me: Sinus Rhythm Ordered Tests: Active Orders 24 hr Category Date Time Status EKG-ER Only STAT Care 07/28/20 09:59 Active CBC W DIFF Stat Lab 07/28/20 10:10 Completed CMP Stat Lab 07/28/20 10:10 Completed UA W/RFX UR CULTURE Stat Lab 07/28/20 10:55 Completed Urine Triage Profile Stat Lab 07/28/20 10:55 Completed Lab/Rad Data: Laboratory Result Diagrams 07/28/20 10:10 07/28/20 10:10 Laboratory Results 07/28/20 07/28/20 07/28/20 Range/Units 10:55 10:55 10:10 WBC (4.0-10.5) K/mm3 RBC (4.1-5.6) M/mm3 Hgb (12.5-18.0) gm/dl Hct (42-50) % MCV (78-100) fl MCH (26-32) pg MCHC (32-36) g/dl RDW (11.5-14.0) % Plt Count (150-450) K/mm3 MPV (7.5-11.0) fl Gran % (36.0-66.0) % Eos # (Auto) (0-0.5) Absolute Lymphs (auto) (1.0-4.6) Absolute Monos (auto) (0.0-1.3) Lymphocytes % (24.0-44.0) % Monocytes % (0.0-12.0) % Eosinophils % (0.00-5.0) % Basophils % (0.0-0.4) % Absolute Granulocytes (1.4-6.9) Basophils # (0-0.4) Sodium 139 (137-145) mmol/L Potassium 4.4 (3.5-5.1) mmol/L Chloride 104 (98-107) mmol/L Carbon Dioxide 30 (22-30) mmol/L Anion Gap 9.4 (5-15) MEQ/L BUN 15 (9-20) mg/dL Creatinine 0.84 (0.66-1.25) mg/dL Estimated GFR > 60.0 ML/MIN Glucose 129 H (74-106) mg/dL Calcium 9.3 (8.4-10.2) mg/dL Total Bilirubin 0.40 (0.2-1.3) mg/dL AST 31 (17-59) U/L ALT 39 (0-50) U/L Alkaline Phosphatase 85 (38-126) U/L Serum Total Protein 7.7 (6.3-8.2) g/dL Albumin 4.1 (3.5-5.0) g/dL Urine Color YELLOW (YELLOW) Urine Appearance CLEAR (CLEAR) Urine pH 7.0 (5-6) Ur Specific [place] 1.015 (1.005-1.025) Urine Protein NEGATIVE (Negative) Urine Ketones NEGATIVE (NEGATIVE) Urine Blood NEGATIVE (0-5) Volodymyr/ul Urine Nitrite NEGATIVE (NEGATIVE) Urine Bilirubin NEGATIVE (NEGATIVE) Urine Urobilinogen NEGATIVE (0-1) mg/dL Ur Leukocyte Esterase NEGATIVE (NEGATIVE) Urine WBC (Auto) NONE (0-5) /HPF Urine RBC (Auto) NONE (0-2) /HPF U Epithel Cells (Auto) NONE (FEW) /HPF Urine Bacteria (Auto) NONE (NEGATIVE) /HPF Urine Culture Reflexed NO (NO) Urine Glucose NEGATIVE (NEGATIVE) mg/dL Urine Opiates Level NEGATIVE (NEGATIVE) Ur Methadone NEGATIVE (NEGATIVE) Urine Barbiturates NEGATIVE (NEGATIVE) Ur Phencyclidine (PCP) NEGATIVE (NEGATIVE) Urine Amphetamine NEGATIVE (NEGATIVE) U Benzodiazepine Level NEGATIVE (NEGATIVE) Urine Cocaine NEGATIVE (NEGATIVE) Urine Marijuana (THC) NEGATIVE (NEGATIVE) 07/28/20 Range/Units 10:10 WBC 5.7 (4.0-10.5) K/mm3 RBC 4.68 (4.1-5.6) M/mm3 Hgb 14.1 (12.5-18.0) gm/dl Hct 41.5 L (42-50) % MCV 88.7 (78-100) fl MCH 30.1 (26-32) pg MCHC 34.0 (32-36) g/dl RDW 12.9 (11.5-14.0) % Plt Count 230 (150-450) K/mm3 MPV 8.8 (7.5-11.0) fl Gran % 69.2 H (36.0-66.0) % Eos # (Auto) 0.08 (0-0.5) Absolute Lymphs (auto) 1.31 (1.0-4.6) Absolute Monos (auto) 0.34 (0.0-1.3) Lymphocytes % 23.2 L (24.0-44.0) % Monocytes % 6.0 (0.0-12.0) % Eosinophils % 1.4 (0.00-5.0) % Basophils % 0.2 (0.0-0.4) % Absolute Granulocytes 3.91 (1.4-6.9) Basophils # 0.01 (0-0.4) Sodium (137-145) mmol/L Potassium (3.5-5.1) mmol/L Chloride (98-107) mmol/L Carbon Dioxide (22-30) mmol/L Anion Gap (5-15) MEQ/L BUN (9-20) mg/dL Creatinine (0.66-1.25) mg/dL Estimated GFR ML/MIN Glucose (74-106) mg/dL Calcium (8.4-10.2) mg/dL Total Bilirubin (0.2-1.3) mg/dL AST (17-59) U/L ALT (0-50) U/L Alkaline Phosphatase (38-126) U/L Serum Total Protein (6.3-8.2) g/dL Albumin (3.5-5.0) g/dL Urine Color (YELLOW) Urine Appearance (CLEAR) Urine pH (5-6) Ur Specific [place] (1.005-1.025) Urine Protein (Negative) Urine Ketones (NEGATIVE) Urine Blood (0-5) Volodymyr/ul Urine Nitrite (NEGATIVE) Urine Bilirubin (NEGATIVE) Urine Urobilinogen (0-1) mg/dL Ur Leukocyte Esterase (NEGATIVE) Urine WBC (Auto) (0-5) /HPF Urine RBC (Auto) (0-2) /HPF U Epithel Cells (Auto) (FEW) /HPF Urine Bacteria (Auto) (NEGATIVE) /HPF Urine Culture Reflexed (NO) Urine Glucose (NEGATIVE) mg/dL Urine Opiates Level (NEGATIVE) Ur Methadone (NEGATIVE) Urine Barbiturates (NEGATIVE) Ur Phencyclidine (PCP) (NEGATIVE) Urine Amphetamine (NEGATIVE) U Benzodiazepine Level (NEGATIVE) Urine Cocaine (NEGATIVE) Urine Marijuana (THC) (NEGATIVE) - Progress Progress: improved, pain not gone completely Counseled pt/family regarding: lab results, diagnosis, need for follow-up, rad results, smoking cessation - Departure Departure Disposition: Home Clinical Impression: Flank pain, Spasm of back muscles, Right sided sciatica, Chest pain in adult Condition: Stable Critical Care Time: No Referrals: BERENICE MUNOZ [Primary Care Provider] - Instructions: Low Back Pain (DC), Sciatica (DC), Chest Pain That Is Not Caused by the Heart (DC) Additional Instructions: Discharge/Care Plan RACHELL RUBIO was seen on 07/28/20 in the Emergency Room. The patient was counseled regarding Diagnosis,Lab results, Imaging studies, need for follow up and when to return to the Emergency Room. Prescriptions given: Discharge Note I have spoken with the patient and/or caregivers. I have explained the patient's condition, diagnosis and treatment plan based on the information available to me at this time. I have answered the patient's and/or caregiver's questions and addressed any concerns. The patient and/or caregivers have as good understanding of the patient's diagnosis, condition and treatment plan as can be expected at this point. The vital signs have been stable. The patient's condition is stable and appropriate for discharge from the emergency department. The patient will pursue further outpatient evaluation with the primary care physician or other designated or consulting physician as outlined in the discharge instructions. The patient and/or caregivers are agreeable to this plan of care and follow-up instructions have been explained in detail. The patient and/or caregivers have received these instruction. The patient/and or caregivers are aware that any significant change in condition or worsening of symptoms s hould prompt an immediate return to this or the closest emergency department or call 911. RACHELL RUBIO was seen on 07/28/20 n the Emergency Room. At that time you were treated for an emergent condition, during your visit Laboratory, Radiology and/or other procedures may have been ordered. It is very important that you follow-up with your Primary Care Physician BERENICE MUNOZ within the next 24-48 hours to review your Emergency Room visit and the final results of testing that was ordered. Some test results such as Urine Cultures, Blood Cultures, and other cultures if ordered will not be finalized for 24-48 hours. If you do not have a Primary Care Provider please call the medical records department at [phone] to obtain a copy of your results or you may sign into our patient portal to obtain these results by visiting us @ [email or web address] and completing the following steps: 1. Click on the Patient Portal link 2. Click the Patient Self Enrollment Link to complete the enrollment form and entering your 3. Once the enrollment form is completed you will receive an email with a temporary ID and password at the email address you provided. 4. Next choose a user name and password. Your user name must be at least 4 characters long and your password must be at least 4 characters long. 5. Choose a security question from the list and provide your answer to the question. If you already have signed into the Health Portal you may access your Health Care Information 09/11 by the following steps: 1. Login to our website @ [email or web address] 2. Enter your original user name and password. FAQS The [facility] Health Portal is an online tool that contains your Lab Results, Radiology Reports, Visit History, Discharge Instructions and Health Summary Lab and Radiology Results will not be available for 72 hours on the portal. The Portal is a secure site, passwords are encryted and URLs are re-written so they cannot be copied and pasted. You and authorized family members are the only ones who can access your Portal. Also there is a timeout feature that protects your information if you leave the Portal page open. If you have technical difficulty please use the Contact Us link on the page this will allow you to submit any questions you have regarding the Portal or you may contact the Medical Record Department at [phone]. Prescriptions: Cyclobenzaprine HCl 10 mg [Flexeril 10 MG] 10 mg PO TID #15 tablet
[2020-07-28 10:21] LABS: Absolute Neutrophil Ct (ANC) 3.91 (1.4-6.9); BASOPHIL % 0.2 % (0.0-0.4); Basophil (Absolute #) 0.01 (0-0.4); Eosinophil % 1.4 % (0.00-5.0); Eosinophil (Absolute #) 0.08 (0-0.5); Hematocrit 41.5 % (42-50); Hemoglobin 14.1 gm/dl (12.5-18.0); Lymphocyte (Absolute #) 1.31 (1.0-4.6); Lymphocytes % 23.2 % (24.0-44.0); Mean Cell Volume 88.7 fl (78-100); Mean Corpuscular Hemoglobin 30.1 pg (26-32); Mean Platelet Volume 8.8 fl (7.5-11.0); Monocyte (Absolute #) 0.34 (0.0-1.3); Neutrophil % 69.2 % (36.0-66.0); Platelet Count 230 K/mm3 (150-450); Red Blood Count 4.68 M/mm3 (4.1-5.6); Red Cell Distribution Width 12.9 % (11.5-14.0); White Blood Count 5.7 K/mm3 (4.0-10.5)
[2020-07-28 10:34] LABS: ALBUMIN 4.1 g/dL (3.5-5.0); ALKALINE PHOSPHATASE 85 U/L (38-126); ANION GAP 9.4 MEQ/L (5-15); BLOOD UREA NITROGEN 15 mg/dL (9-20); CHLORIDE 104 mmol/L (98-107); Calcium 9.3 mg/dL (8.4-10.2); Carbon Dioxide 30 mmol/L (22-30); Creatinine 1 0.84 mg/dL (0.66-1.25); EST GLOMERULAR FILTRATION RATE > 60.0 ML/MIN; Glucose 129 mg/dL (74-106); Potassium 4.4 mmol/L (3.5-5.1); SGOT/AST 31 U/L (17-59); SGPT/ALT 39 U/L (0-50); SODIUM 139 mmol/L (137-145); Total Protein 7.7 g/dL (6.3-8.2)
[2020-07-28 10:43] LABS: Amphetamine,Urine NEGATIVE (NEGATIVE); Barbiturate,Urine NEGATIVE (NEGATIVE); Benzodiazepine,Urine NEGATIVE (NEGATIVE); Cocaine,Urine NEGATIVE (NEGATIVE); Methadone,Urine NEGATIVE (NEGATIVE); Opiate,Urine NEGATIVE (NEGATIVE); PCP,Urine NEGATIVE (NEGATIVE); THC,Urine NEGATIVE (NEGATIVE)
[2020-07-28 10:56] VITALS: BP 109/75; PULSE 67
[2020-07-28 10:58] LABS: Appearance CLEAR (CLEAR); Bilirubin NEGATIVE (NEGATIVE); Blood NEGATIVE Ery/ul (0-5); Glucose NEGATIVE (NEGATIVE); Ketones NEGATIVE (NEGATIVE); Leukocyte Esterase NEGATIVE (NEGATIVE); Nitrite NEGATIVE (NEGATIVE); Protein,Urine Dip NEGATIVE (Negative); Specific Gravity 1.015 (1.005-1.025); Urobilinogen NEGATIVE mg/dL (0-1)
[2020-07-28 11:02] VITALS: O2SAT 97
== END 2020-07-28 11:08 | disposition home or self-care (01) ==
LOC: ED 09:20
DX: R10.9 Unspecified abdominal pain (principal); M62.830 Muscle spasm of back; M54.31 Sciatica, right side; R07.9 Chest pain, unspecified
CPT/HCPCS: 36415; 80053; 80307; 81001; 85025; 93005; 99284

== ENCOUNTER 2020-10-02 18:43 | Emergency (ER) | payer MEDICARE ==
--- NOTE | 2020-10-02 18:46 | ERPHSYRPT ---
- History of Present Illness Time Seen by Provider: 10/02/20 18:46 Source: patient Exam Limitations: no limitations Physician History: This is a 45-year-old white male with a history of depression and schizoaffective disorder and who over the last month has had intermittent right nostril nosebleeds. He is not on any anticoagulation therapy. He does not use aspirin or NSAIDs on a chronic daily basis. What was different today was that he had the nosebleed and it lasted for hours before he get it somewhat stopped. He denies any type of trauma to this area. He is never had significant nosebleeds prior to 1 month ago. Patient arrives to the emergency department with no active bleeding from the right nostril. Timing/Duration: intermittent (Over the last month) Severity: mild ENT Location: nose (Right nostril) Prearrival Treatment: squeezing nostrils Modifying Factors: Improves With: nothing Associated Symptoms: epistaxis (Right nostril) Allergies/Adverse Reactions: bee pollen Allergy (Intermediate, Verified 10/02/20 19:10) Swelling Home Medications: Baclofen 10 mg [Lioresal 10 mg] 10 mg PO QID 07/27/17 [History] Benztropine Mesylate 2 mg PO QID 07/27/17 [History] Sertraline HCl [Zoloft] 200 mg PO DAILY 07/27/17 [History] Propranolol HCl 10 mg PO BID 03/30/19 [History] [place] Carbonate 300 mg [[place] Carbonate 300 MG] 400 mg DAILY 11/29/19 [History] Hx Tetanus, Diphtheria Vaccination/Date Given: Yes Hx Influenza Vaccination/Date Given: Yes Hx Pneumococcal Vaccination/Date Given: No Travel Risk - International Travel Have you traveled outside of the country in past 3 weeks: No - Coronavirus Screening Are you exhibiting any of the following symptoms?: No Close contact with a COVID-19 positive Pt in past 14-21 Days: No - Vaccine Status Have you recieved a Covid-19 vaccination: No - Review of Systems Constitutional: No Symptoms Eyes: No Symptoms Ears, Nose, & Throat: Epistaxis (Nostril) Respiratory: No Symptoms Cardiac: No Symptoms Abdominal/Gastrointestinal: No Symptoms Genitourinary Symptoms: No Symptoms Musculoskeletal: No Symptoms Skin: No Symptoms Neurological: No Symptoms Psychological: No Symptoms Endocrine: No Symptoms Hematologic/Lymphatic: No Symptoms Immunological/Allergic: No Symptoms All Other Systems: Reviewed and Negative - Past Medical History Pertinent Past Medical History: Yes Neurological History: Migraines ENT History: No Pertinent History Cardiac History: Angina Respiratory History: Bronchitis, Other Musculoskeletal History: Fractures GI Medical History: GERD History: No Pertinent History Psycho-Social History: Anxiety, Depression, Other Male Reproductive Disorders: No Pertinent History Other Medical History: schizo affective disorder, 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 - Past Surgical History Past Surgical History: Yes Neuro Surgical History: No Pertinent History Cardiac: No Pertinent History Respiratory: No Pertinent History Gastrointestinal: No Pertinent History Genitourinary: No Pertinent History Musculoskeletal: Orthopedic Surgery Male Surgical History: No Pertinent History Other Surgical History: fracture left orbit 2017 - Social History Smoking Status: Never smoker Exposure to second hand smoke: No Drug Use: none Patient Lives Alone: No - Nursing Vital Signs Nursing Vital Signs: Initial Vital Signs Temperature 97.6 F 10/02/20 19:04 Pulse Rate 74 10/02/20 19:04 Respiratory Rate 18 10/02/20 19:04 Blood Pressure 131/97 10/02/20 19:04 O2 Sat by Pulse Oximetry 96 10/02/20 19:04 Pain Scale Pain Intensity 0 - Physical Exam General Appearance: no apparent distress, alert, anxiety Eye Exam: bilateral eye: normal inspection, PERRL, EOMI Ear Exam: bilateral ear: auricle normal, canal normal, TM normal Nasal Exam: dried blood (Right nostril), No active bleeding, No foreign body Throat Exam: normal, pharynx normal, No foreign body Neck Exam: normal inspection, non-tender, supple, full range of motion, trachea midline Cardiovascular/Respiratory Exam: chest non-tender, no respiratory distress Abdominal Exam: non-tender Neurologic Exam: alert, oriented x 3, cooperative, sourcing associate II-XII nml as tested, normal mood/affect, nml cerebellar function, nml station & gait, sensation nml Skin Exam: normal color, warm, dry SpO2 Interpretation: normal O2 Delivery: Room Air - Course Nursing assessment & vital signs reviewed: Yes Ordered Tests: Active Orders 24 hr Category Date Time Status CBC W DIFF Stat Lab 10/02/20 19:33 Completed CMP Stat Lab 10/02/20 19:33 Completed PROTIME WITH INR Stat Lab 10/02/20 19:33 Completed Medication Summary Discontinued Medications Generic Name Dose Route Start Last Admin Trade Name Henrietta PRN Reason Stop Dose Admin Phenylephrine HCl 15 ml 10/02/20 19:29 10/02/20 19:35 Neosynephrine 0.5% Nasal [place]/Drops NS 10/02/20 19:30 15 ml STAT ONE Administration Phenylephrine HCl Confirm 10/02/20 19:35 Neosynephrine 0.5% Nasal [place]/Drops Administered 10/02/20 19:36 Dose 15 ml .ROUTE .STK-MED ONE Lab/Rad Data: Laboratory Result Diagrams 10/02/20 19:33 10/02/20 19:33 Laboratory Results 10/02/20 10/02/20 10/02/20 Range/Units 19:33 19:33 19:33 WBC 6.5 (4.0-10.5) K/mm3 RBC 4.46 (4.1-5.6) M/mm3 Hgb 13.0 (12.5-18.0) gm/dl Hct 39.4 L (42-50) % MCV 88.3 (78-100) fl MCH 29.1 (26-32) pg MCHC 33.0 (32-36) g/dl RDW 13.5 (11.5-14.0) % Plt Count 264 (150-450) K/mm3 MPV 8.8 (7.5-11.0) fl Gran % 60.5 (36.0-66.0) % Eos # (Auto) 0.15 (0-0.5) Absolute Lymphs (auto) 1.71 (1.0-4.6) Absolute Monos (auto) 0.67 (0.0-1.3) Lymphocytes % 26.5 (24.0-44.0) % Monocytes % 10.4 (0.0-12.0) % Eosinophils % 2.3 (0.00-5.0) % Basophils % 0.3 (0.0-0.4) % Absolute Granulocytes 3.91 (1.4-6.9) Basophils # 0.02 (0-0.4) PT 13.1 H (9.4-12.5) SECONDS INR 1.11 (0.8-3.0) Sodium 140 (137-145) mmol/L Potassium 4.3 (3.5-5.1) mmol/L Chloride 105 (98-107) mmol/L Carbon Dioxide 29 (22-30) mmol/L Anion Gap 9.9 (5-15) MEQ/L BUN 20 (9-20) mg/dL Creatinine 0.98 (0.66-1.25) mg/dL Estimated GFR > 60.0 ML/MIN Glucose 102 (74-106) mg/dL Calcium 9.1 (8.4-10.2) mg/dL Total Bilirubin 0.40 (0.2-1.3) mg/dL AST 39 (17-59) U/L ALT 40 (0-50) U/L Alkaline Phosphatase 79 (38-126) U/L Serum Total Protein 7.4 (6.3-8.2) g/dL Albumin 4.1 (3.5-5.0) g/dL - Progress Progress: improved, re-examined Progress Note: 10/02/20 20:25 Medical decision making: This patient is not actively bleeding at this time. There is no evidence of any bleeding or clotting disorders on the initial blood work results. There is no anemia present. Will wait another 15 to 20 minutes and reassess. If there is no active bleeding, we will discharge him to home with instructions to follow-up with his primary care physician tomorrow and make arranges for follow-up appointment. Counseled pt/family regarding: lab results, diagnosis, need for follow-up - Departure Departure Disposition: Home Clinical Impression: Epistaxis Condition: Stable Critical Care Time: No Referrals: CHULA SOSA [Primary Care Provider] - Additional Instructions: Do not blow your nose. Keep your nostrils moist with humidified air such as in a warm shower or nasal saline drops. If your nose starts to bleed again, spray 4 sprays of the Devin-Synephrine spray into the nostril every 4 hours as needed. Do not do this more frequently. Read the instructions on the product bottle. After sprain the Devin-Synephrine, place the clamp on your nose for 30 to 40 minutes. Call your primary care doctor tomorrow to make arrangement for follow- up appointment and referral to ear nose and throat doctor if indicated
[2020-10-02 19:09] VITALS: O2SAT 96
[2020-10-02] MEDS ORDERED: NEOSYNEPHRINE 0.5% NASAL SPRAY/DROPS NS ONE (19:29)
[2020-10-02] MEDS ORDERED: NEOSYNEPHRINE 0.5% NASAL SPRAY/DROPS ONE (19:35)
[2020-10-02 19:40] LABS: Absolute Neutrophil Ct (ANC) 3.91 (1.4-6.9); BASOPHIL % 0.3 % (0.0-0.4); Basophil (Absolute #) 0.02 (0-0.4); Eosinophil % 2.3 % (0.00-5.0); Eosinophil (Absolute #) 0.15 (0-0.5); Hematocrit 39.4 % (42-50); Lymphocyte (Absolute #) 1.71 (1.0-4.6); Lymphocytes % 26.5 % (24.0-44.0); Mean Cell Volume 88.3 fl (78-100); Mean Corpuscular Hemoglobin 29.1 pg (26-32); Mean Platelet Volume 8.8 fl (7.5-11.0); Monocyte (Absolute #) 0.67 (0.0-1.3); Monocytes % 10.4 % (0.0-12.0); Neutrophil % 60.5 % (36.0-66.0); Platelet Count 264 K/mm3 (150-450); Red Blood Count 4.46 M/mm3 (4.1-5.6); Red Cell Distribution Width 13.5 % (11.5-14.0); White Blood Count 6.5 K/mm3 (4.0-10.5)
[2020-10-02 19:46] LABS: INR 1.11 (0.8-3.0); PROTIME 13.1 SECONDS (9.4-12.5)
[2020-10-02 19:51] LABS: ALBUMIN 4.1 g/dL (3.5-5.0); ALKALINE PHOSPHATASE 79 U/L (38-126); ANION GAP 9.9 MEQ/L (5-15); BLOOD UREA NITROGEN 20 mg/dL (9-20); CHLORIDE 105 mmol/L (98-107); Calcium 9.1 mg/dL (8.4-10.2); Carbon Dioxide 29 mmol/L (22-30); Creatinine 1 0.98 mg/dL (0.66-1.25); EST GLOMERULAR FILTRATION RATE > 60.0 ML/MIN; Glucose 102 mg/dL (74-106); Potassium 4.3 mmol/L (3.5-5.1); SGOT/AST 39 U/L (17-59); SGPT/ALT 40 U/L (0-50); SODIUM 140 mmol/L (137-145); Total Protein 7.4 g/dL (6.3-8.2)
[2020-10-02 20:37] VITALS: BP 125/85; PULSE 66
== END 2020-10-02 20:52 | disposition home or self-care (01) ==
LOC: ED 18:43
DX: R04.0 Epistaxis (principal)
CPT/HCPCS: 36415; 80053; 85025; 85610; 99283; A9270-GY

== ENCOUNTER 2021-02-21 16:39 | Inpatient (IN) | payer MEDICARE ==
--- NOTE | 2021-02-21 17:42 | ERPHSYRPT ---
- History of Present Illness Source: patient Exam Limitations: other (Poor historian) Patient Subjective Stated Complaint: pt here for multi co's was dx with pneumonia 3 days ago and is on 2 antiboitcs, he states he is not better, he states he is seeing things,sob,cough,not eating well, weak. was covis negative 3 days ago. confirms co,s Triage Nursing Assessment: pt alert, anxious, oreinted, skin w/d/p. resp labored, o2 sat 88% ra, pt placed 2 lnc. has dry cough,abd soft, face mask in place Physician History: 45 yo wm w dyspnea/cough/fever/N/V/D x 1month. Pt denies melena/hematochezia/dysuria/hematuria. He had a neg CV19 test 2 days ago and was started on Doxycycline. Timing/Duration: other (1 month) Activities at Onset: rest Severity of Dyspnea-Max: moderate Severity of Dyspnea-Current: mild Possible Cause: no prior episodes Modifying Factors: Improves With: activity, coughing Associated Symptoms: denies symptoms, cough, fever, sweating, No tightness, No tingling face Allergies/Adverse Reactions: bee pollen Allergy (Intermediate, Verified 02/21/21 17:01) Swelling Home Medications: Baclofen 10 mg [Lioresal 10 mg] 10 mg PO QID 07/27/17 [History] Benztropine Mesylate 2 mg PO QID 07/27/17 [History] Sertraline HCl [Zoloft] 200 mg PO DAILY 07/27/17 [History] Propranolol HCl 10 mg PO BID 03/30/19 [History] [place] Carbonate 300 mg [[place] Carbonate 300 MG] 400 mg DAILY 11/29/19 [History] Albuterol 8 gm Mdi Hfa [Ventolin Hfa MDI] 8 gm IH DAILY 02/21/21 [History] Doxycycline Hyclate 100 mg [Vibramycin 100 MG] 1 ea BID 02/21/21 [History] Hx Tetanus, Diphtheria Vaccination/Date Given: Yes Hx Influenza Vaccination/Date Given: Yes Hx Pneumococcal Vaccination/Date Given: No Immunizations Up to Date: Yes Travel Risk - International Travel Have you traveled outside of the country in past 3 weeks: No - Coronavirus Screening Are you exhibiting any of the following symptoms?: Yes Symptoms: Cough: New Onset, Shortness of Breath - Vaccine Status Have you recieved a Covid-19 vaccination: No - Review of Systems Constitutional: No Symptoms, Fever, Chills, Fatigue Eyes: No Symptoms Ears, Nose, & Throat: No Symptoms Respiratory: No Symptoms, Cough Cardiac: No Symptoms Abdominal/Gastrointestinal: No Symptoms, Nausea, Vomiting, Diarrhea Genitourinary Symptoms: No Symptoms Musculoskeletal: No Symptoms Skin: No Symptoms Neurological: No Symptoms Psychological: No Symptoms Endocrine: No Symptoms Hematologic/Lymphatic: No Symptoms Immunological/Allergic: No Symptoms - Past Medical History Pertinent Past Medical History: Yes Neurological History: Migraines ENT History: No Pertinent History Cardiac History: Angina Respiratory History: Bronchitis, Other Musculoskeletal History: Fractures GI Medical History: GERD History: No Pertinent History Psycho-Social History: Anxiety, Depression, Other Male Reproductive Disorders: No Pertinent History Other Medical History: schizo affective disorder, 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 - Past Surgical History Past Surgical History: Yes Neuro Surgical History: No Pertinent History Cardiac: No Pertinent History Respiratory: No Pertinent History Gastrointestinal: No Pertinent History Genitourinary: No Pertinent History Musculoskeletal: Orthopedic Surgery Male Surgical History: No Pertinent History Other Surgical History: fracture left orbit 2017 - Social History Smoking Status: Never smoker Exposure to second hand smoke: No Drug Use: none Patient Lives Alone: No Significant Family History: no pertinent family hx - Nursing Vital Signs Nursing Vital Signs: Initial Vital Signs Temperature 99.6 F 02/21/21 17:10 Pulse Rate 88 02/21/21 17:10 Respiratory Rate 26 H 02/21/21 17:10 Blood Pressure 103/73 02/21/21 17:10 O2 Sat by Pulse Oximetry 97 02/21/21 17:10 Pain Scale Pain Intensity 0 Tachyneic - Physical Exam General Appearance: no apparent distress, anxiety Eye Exam: PERRL/EOMI, eyes nml inspection Ears, Nose, Throat Exam: hearing grossly normal, normal ENT inspection, normal pharynx Neck Exam: normal inspection, non-tender, supple, full range of motion, No Brudzinski, No Kernig's, No meningismus, No carotid bruit Respiratory Exam: normal breath sounds, lungs clear, airway intact, No respiratory distress Cardiovascular/Chest Exam: normal heart sounds, regular rate/rhythm, normal peripheral pulses, No murmur Abdominal/Gastrointestinal Exam: soft, normal bowel sounds Extremity Exam: non-tender, normal range of motion, normal inspection, normal capillary refill, no calf tenderness, no pedal edema Neurologic Exam: alert, oriented x 3, cooperative, dental office receptionist II-XII nml as tested, normal mood/affect, nml cerebellar function, nml station & gait, sensation nml, No motor deficits, No sensory deficit Skin Exam: normal color, warm, dry, No rash Lymphatic Exam: No adenopathy SpO2 Interpretation: normal SpO2: 97 O2 Delivery: Room Air - Course Nursing assessment & vital signs reviewed: Yes EKG Interpreted by Me: RATE (NSR/R90/Normal QT-QTc/Nonspecific ST-T wave changes) - Radiology Exams Chest X-ray Interpretation: Interpreted by me (CV19 appearance) Ordered Tests: Active Orders 24 hr Category Date Time Status EKG-ER Only STAT Care 02/21/21 17:38 Completed House Regular Diet Diet 02/22/21 Breakfast Active CHEST 1 VIEW (PORTABLE) Stat Exams 02/21/21 17:36 Completed CBC W DIFF AM.LAB Lab 02/22/21 04:00 Ordered CBC W DIFF Stat Lab 02/21/21 18:00 Completed CMP AM.LAB Lab 02/22/21 04:00 Ordered CMP Stat Lab 02/21/21 18:00 Completed D-DIMER QUANTITATIVE AM.LAB Lab 02/22/21 04:00 Ordered LITHIUM Stat Lab 02/21/21 18:00 Completed Lactic Acid Stat Lab 02/21/21 18:10 Completed PROTIME WITH INR Stat Lab 02/21/21 18:00 Completed PTT Stat Lab 02/21/21 18:00 Completed UA W/RFX UR CULTURE Stat Lab 02/21/21 19:11 Completed Transfer Order Routine Transfer 02/21/21 Completed Medication Summary Generic Name Dose Route Start Last Admin Trade Name Freq PRN Reason Stop Dose Admin Albuterol Sulfate 8 gm 02/21/21 21:07 Albuterol Sulfate 8 Gm Mdi Hfa IH 03/23/21 21:06 Q4H PRN PRN SHORTNESS OF BREATH/WHEEZING Dexamethasone Sodium Phosphate 4 mg 02/22/21 10:00 Dexamethasone Sod Phosphate 4 Mg/Ml Ml IV 03/24/21 09:59 DAILY JACK Enoxaparin Sodium 40 mg 02/22/21 10:00 Enoxaparin Sodium 40 Mg/0.4 Ml Syringe SQ 03/24/21 09:59 DAILY [facility] Famotidine 20 mg 02/21/21 22:00 Famotidine 20 Mg/1 Vial IV 03/23/21 21:59 Q12HT [facility] Sodium Chloride 1,000 mls @ 0 mls/hr 02/21/21 19:30 Sodium Chloride 0.9% 1000 Ml IV 03/23/21 19:29 .Q0M [facility] KVO Remdesivir 100 mg/ Sodium 100 mls @ 100 mls/hr 02/22/21 19:23 Chloride IV 02/25/21 20:22 Q24H [facility] Ondansetron HCl 4 mg 02/21/21 19:20 Ondansetron Hcl 4 Mg/2 Ml Vial IV 03/23/21 19:19 Q6H PRN PRN NAUSEA/VOMITING Pantoprazole Sodium 40 mg 02/22/21 10:00 Pantoprazole 40 Mg Vial IV 03/24/21 09:59 Q24H10 [facility] Discontinued Medications Generic Name Dose Route Start Last Admin Trade Name Freq PRN Reason Stop Dose Admin Dexamethasone Sodium Phosphate 10 mg 02/21/21 19:08 Dexamethasone Sod Phosphate 10 Mg/Ml IV 02/21/21 19:09 STAT ONE Remdesivir 200 mg/ Sodium 250 mls @ 125 mls/hr 02/21/21 19:24 Chloride IV 02/21/21 21:23 ONCE ONE Lab/Rad Data: Laboratory Result Diagrams 02/21/21 18:00 02/21/21 18:00 Laboratory Results 02/21/21 02/21/21 02/21/21 Range/Units 19:11 18:10 18:06 WBC (4.0-10.5) K/mm3 RBC (4.1-5.6) M/mm3 Hgb (12.5-18.0) gm/dl Hct (42-50) % MCV (78-100) fl MCH (26-32) pg MCHC (32-36) g/dl RDW (11.5-14.0) % Plt Count (150-450) K/mm3 MPV (7.5-11.0) fl Gran % (36.0-66.0) % Eos # (Auto) (0-0.5) Absolute Lymphs (auto) (1.0-4.6) Absolute Monos (auto) (0.0-1.3) Lymphocytes % (24.0-44.0) % Monocytes % (0.0-12.0) % Eosinophils % (0.00-5.0) % Basophils % (0.0-0.4) % Absolute Granulocytes (1.4-6.9) Basophils # (0-0.4) PT (9.4-12.5) SECONDS INR (0.8-3.0) APTT (25.1-36.5) SECONDS Sodium (137-145) mmol/L Potassium (3.5-5.1) mmol/L Chloride (98-107) mmol/L Carbon Dioxide (22-30) mmol/L Anion Gap (5-15) MEQ/L BUN (9-20) mg/dL Creatinine (0.66-1.25) mg/dL Estimated GFR ML/MIN Glucose (74-106) mg/dL Lactic Acid 1.1 (0.4-2.0) Calcium (8.4-10.2) mg/dL Total Bilirubin (0.2-1.3) mg/dL AST (17-59) U/L ALT (0-50) U/L Alkaline Phosphatase (38-126) U/L Serum Total Protein (6.3-8.2) g/dL Albumin (3.5-5.0) g/dL Urine Color MATT (YELLOW) Urine Appearance SLIGHTLY CLOUDY (CLEAR) Urine pH 5.0 (5-6) Ur Specific [place] 1.024 (1.005-1.025) Urine Protein 100 (Negative) Urine Ketones SMALL (NEGATIVE) Urine Blood NEGATIVE (0-5) Volodymyr/ul Urine Nitrite NEGATIVE (NEGATIVE) Urine Bilirubin NEGATIVE (NEGATIVE) Urine Urobilinogen 4 (0-1) mg/dL Ur Leukocyte Esterase NEGATIVE (NEGATIVE) Urine WBC (Auto) 3-5 (0-5) /HPF Urine RBC (Auto) NONE (0-2) /HPF U Epithel Cells (Auto) NONE (FEW) /HPF Urine Bacteria (Auto) NONE (NEGATIVE) /HPF Urine Mucus (Auto) SLIGHT (NEGATIVE) /HPF Urine Culture Reflexed NO (NO) Urine Glucose NEGATIVE (NEGATIVE) mg/dL [place] (0.60-1.20) mmol/L Influenza Type A Ag NEGATIVE (NEGATIVE) Influenza Type B Ag NEGATIVE (NEGATIVE) RSV (PCR) NEGATIVE (Negative) SARS-CoV-2 (PCR) POSITIVE A (NEGATIVE) 02/21/21 02/21/21 02/21/21 Range/Units 18:00 18:00 18:00 WBC (4.0-10.5) K/mm3 RBC (4.1-5.6) M/mm3 Hgb (12.5-18.0) gm/dl Hct (42-50) % MCV (78-100) fl MCH (26-32) pg MCHC (32-36) g/dl RDW (11.5-14.0) % Plt Count (150-450) K/mm3 MPV (7.5-11.0) fl Gran % (36.0-66.0) % Eos # (Auto) (0-0.5) Absolute Lymphs (auto) (1.0-4.6) Absolute Monos (auto) (0.0-1.3) Lymphocytes % (24.0-44.0) % Monocytes % (0.0-12.0) % Eosinophils % (0.00-5.0) % Basophils % (0.0-0.4) % Absolute Granulocytes (1.4-6.9) Basophils # (0-0.4) PT 15.7 H (9.4-12.5) SECONDS INR 1.33 (0.8-3.0) APTT 35.1 (25.1-36.5) SECONDS Sodium 135 L (137-145) mmol/L Potassium 3.6 (3.5-5.1) mmol/L Chloride 99 (98-107) mmol/L Carbon Dioxide 27 (22-30) mmol/L Anion Gap 12.2 (5-15) MEQ/L BUN 12 (9-20) mg/dL Creatinine 0.74 (0.66-1.25) mg/dL Estimated GFR > 60.0 ML/MIN Glucose 137 H (74-106) mg/dL Lactic Acid (0.4-2.0) Calcium 8.2 L (8.4-10.2) mg/dL Total Bilirubin 0.70 (0.2-1.3) mg/dL AST 85 H (17-59) U/L ALT 65 H (0-50) U/L Alkaline Phosphatase 81 (38-126) U/L Serum Total Protein 7.1 (6.3-8.2) g/dL Albumin 3.8 (3.5-5.0) g/dL Urine Color (YELLOW) Urine Appearance (CLEAR) Urine pH (5-6) Ur Specific [place] (1.005-1.025) Urine Protein (Negative) Urine Ketones (NEGATIVE) Urine Blood (0-5) Volodymyr/ul Urine Nitrite (NEGATIVE) Urine Bilirubin (NEGATIVE) Urine Urobilinogen (0-1) mg/dL Ur Leukocyte Esterase (NEGATIVE) Urine WBC (Auto) (0-5) /HPF Urine RBC (Auto) (0-2) /HPF U Epithel Cells (Auto) (FEW) /HPF Urine Bacteria (Auto) (NEGATIVE) /HPF Urine Mucus (Auto) (NEGATIVE) /HPF Urine Culture Reflexed (NO) Urine Glucose (NEGATIVE) mg/dL [place] < 0.2 L (0.60-1.20) mmol/L Influenza Type A Ag (NEGATIVE) Influenza Type B Ag (NEGATIVE) RSV (PCR) (Negative) SARS-CoV-2 (PCR) (NEGATIVE) 02/21/21 Range/Units 18:00 WBC 3.8 L (4.0-10.5) K/mm3 RBC 4.72 (4.1-5.6) M/mm3 Hgb 13.5 (12.5-18.0) gm/dl Hct 40.3 L (42-50) % MCV 85.4 (78-100) fl MCH 28.6 (26-32) pg MCHC 33.5 (32-36) g/dl RDW 13.0 (11.5-14.0) % Plt Count 192 (150-450) K/mm3 MPV 9.2 (7.5-11.0) fl Gran % 75.1 H (36.0-66.0) % Eos # (Auto) 0 (0-0.5) Absolute Lymphs (auto) 0.61 L (1.0-4.6) Absolute Monos (auto) 0.33 (0.0-1.3) Lymphocytes % 16.0 L (24.0-44.0) % Monocytes % 8.6 (0.0-12.0) % Eosinophils % 0.0 (0.00-5.0) % Basophils % 0.3 (0.0-0.4) % Absolute Granulocytes 2.87 (1.4-6.9) Basophils # 0.01 (0-0.4) PT (9.4-12.5) SECONDS INR (0.8-3.0) APTT (25.1-36.5) SECONDS Sodium (137-145) mmol/L Potassium (3.5-5.1) mmol/L Chloride (98-107) mmol/L Carbon Dioxide (22-30) mmol/L Anion Gap (5-15) MEQ/L BUN (9-20) mg/dL Creatinine (0.66-1.25) mg/dL Estimated GFR ML/MIN Glucose (74-106) mg/dL Lactic Acid (0.4-2.0) Calcium (8.4-10.2) mg/dL Total Bilirubin (0.2-1.3) mg/dL AST (17-59) U/L ALT (0-50) U/L Alkaline Phosphatase (38-126) U/L Serum Total Protein (6.3-8.2) g/dL Albumin (3.5-5.0) g/dL Urine Color (YELLOW) Urine Appearance (CLEAR) Urine pH (5-6) Ur Specific [place] (1.005-1.025) Urine Protein (Negative) Urine Ketones (NEGATIVE) Urine Blood (0-5) Volodymyr/ul Urine Nitrite (NEGATIVE) Urine Bilirubin (NEGATIVE) Urine Urobilinogen (0-1) mg/dL Ur Leukocyte Esterase (NEGATIVE) Urine WBC (Auto) (0-5) /HPF Urine RBC (Auto) (0-2) /HPF U Epithel Cells (Auto) (FEW) /HPF Urine Bacteria (Auto) (NEGATIVE) /HPF Urine Mucus (Auto) (NEGATIVE) /HPF Urine Culture Reflexed (NO) Urine Glucose (NEGATIVE) mg/dL [place] (0.60-1.20) mmol/L Influenza Type A Ag (NEGATIVE) Influenza Type B Ag (NEGATIVE) RSV (PCR) (Negative) SARS-CoV-2 (PCR) (NEGATIVE) - Progress Progress: improved Progress Note: 02/21/21 19:[address] Ferguson 10mg IV Decadron Discussed with Dr.: Other (Dr. Ferguson) Counseled pt/family regarding: lab results, diagnosis, rad results - Departure Departure Disposition: Observation Clinical Impression: COVID-19 Condition: Stable Critical Care Time: No
[2021-02-21 18:25] LABS: Absolute Neutrophil Ct (ANC) 2.87 (1.4-6.9); BASOPHIL % 0.3 % (0.0-0.4); Basophil (Absolute #) 0.01 (0-0.4); Eosinophil (Absolute #) 0 (0-0.5); Hematocrit 40.3 % (42-50); Hemoglobin 13.5 gm/dl (12.5-18.0); Lymphocyte (Absolute #) 0.61 (1.0-4.6); Mean Cell Volume 85.4 fl (78-100); Mean Corpuscular Hemoglobin 28.6 pg (26-32); Mean Corpuscular Hgb Concent. 33.5 g/dl (32-36); Mean Platelet Volume 9.2 fl (7.5-11.0); Monocyte (Absolute #) 0.33 (0.0-1.3); Monocytes % 8.6 % (0.0-12.0); Neutrophil % 75.1 % (36.0-66.0); Platelet Count 192 K/mm3 (150-450); Red Blood Count 4.72 M/mm3 (4.1-5.6); White Blood Count 3.8 K/mm3 (4.0-10.5)
[2021-02-21 18:31] LABS: INR 1.33 (0.8-3.0); PROTIME 15.7 SECONDS (9.4-12.5)
[2021-02-21 18:35] LABS: PTT 35.1 SECONDS (25.1-36.5)
[2021-02-21 18:36] LABS: ALBUMIN 3.8 g/dL (3.5-5.0); ALKALINE PHOSPHATASE 81 U/L (38-126); ANION GAP 12.2 MEQ/L (5-15); BLOOD UREA NITROGEN 12 mg/dL (9-20); CHLORIDE 99 mmol/L (98-107); Calcium 8.2 mg/dL (8.4-10.2); Carbon Dioxide 27 mmol/L (22-30); Creatinine 1 0.74 mg/dL (0.66-1.25); EST GLOMERULAR FILTRATION RATE > 60.0 ML/MIN; Glucose 137 mg/dL (74-106); Potassium 3.6 mmol/L (3.5-5.1); SGOT/AST 85 U/L (17-59); SGPT/ALT 65 U/L (0-50); SODIUM 135 mmol/L (137-145); Total Protein 7.1 g/dL (6.3-8.2)
[2021-02-21 18:57] LABS: INFLUENZA A NEGATIVE (NEGATIVE); INFLUENZA B NEGATIVE (NEGATIVE); RESPIRATORY SYNCTIAL VIRUS NEGATIVE (Negative)
[2021-02-21 19:06] LABS: SARS-CoV-2 Xpert Express POSITIVE (NEGATIVE)
[2021-02-21] MEDS ORDERED: DECADRON 10MG INJ. IV ONE (19:08)
[2021-02-21] MEDS ORDERED: Zofran 4 MG/2 ML VIAL IV PRN (19:20)
[2021-02-21] MEDS ORDERED: REMDESIVIR 200 MG in Sodium Chloride 0.9% 250 ML 250 ML IV ONE (19:24)
[2021-02-21] MEDS ORDERED: Sodium Chloride 0.9% 1000 ML 1,000 ML IV SCH (19:30)
[2021-02-21 20:09] LABS: Appearance SLIGHTLY CLOUDY (CLEAR); Bilirubin NEGATIVE (NEGATIVE); Blood NEGATIVE Ery/ul (0-5); Glucose NEGATIVE (NEGATIVE); Ketones SMALL (NEGATIVE); Leukocyte Esterase NEGATIVE (NEGATIVE); Mucus SLIGHT /HPF (NEGATIVE); Nitrite NEGATIVE (NEGATIVE); Protein,Urine Dip 100 (Negative); Specific Gravity 1.024 (1.005-1.025); Urobilinogen 4 mg/dL (0-1)
[2021-02-21] MEDS ORDERED: Ventolin Hfa MDI IH PRN (21:07)
--- NOTE | 2021-02-21 21:47 | XRAY ---
Indication: Cough, confusion, and short of breath one month. Comparison: February 18, 2021. Portable chest demonstrates worsening moderate diffuse bilateral patchy interstitial alveolar opacities. Remaining heart and bony thorax unremarkable.
[2021-02-21] MEDS ORDERED: VENTOLIN COMMON CANISTER IH PRN (22:00)
[2021-02-21] MEDS ORDERED: HYDROCODONE-CHLORPHEN ER SUSP PO PRN (22:51)
[2021-02-21] MEDS ORDERED: OLUMIANT PO SCH (23:00)
[2021-02-21] MEDS ORDERED: COGENTIN 0.5 MG PO ONE (23:50)
[2021-02-21] MEDS ORDERED: Cyclobenzaprine 10 MG PO ONE (23:51)
[2021-02-22] MEDS ORDERED: LIORESAL 10 MG PO SCH ×2 (00:10→10:00)
[2021-02-22] MEDS ORDERED: OLUMIANT PO ONE (00:29)
[2021-02-22] MEDS: Pepcid 20 MG VIAL IV SCH ×3 (00:46→21:21)
[2021-02-22] MEDS: Decadron 4 MG INJ IV SCH ×2 (00:47→22:17)
[2021-02-22 06:35] LABS: Absolute Neutrophil Ct (ANC) 2.86 (1.4-6.9); Basophil (Absolute #) 0 (0-0.4); Eosinophil (Absolute #) 0 (0-0.5); Hematocrit 39.2 % (42-50); Lymphocyte (Absolute #) 0.52 (1.0-4.6); Lymphocytes % 14.4 % (24.0-44.0); Mean Corpuscular Hemoglobin 28.2 pg (26-32); Mean Corpuscular Hgb Concent. 33.2 g/dl (32-36); Mean Platelet Volume 9.4 fl (7.5-11.0); Monocyte (Absolute #) 0.23 (0.0-1.3); Monocytes % 6.4 % (0.0-12.0); Neutrophil % 79.2 % (36.0-66.0); Platelet Count 206 K/mm3 (150-450); Red Blood Count 4.61 M/mm3 (4.1-5.6); Red Cell Distribution Width 12.9 % (11.5-14.0); White Blood Count 3.6 K/mm3 (4.0-10.5)
[2021-02-22 07:03] LABS: ALBUMIN 3.4 g/dL (3.5-5.0); ALKALINE PHOSPHATASE 74 U/L (38-126); ANION GAP 14.5 MEQ/L (5-15); BLOOD UREA NITROGEN 11 mg/dL (9-20); CHLORIDE 101 mmol/L (98-107); Calcium 8.1 mg/dL (8.4-10.2); Carbon Dioxide 24 mmol/L (22-30); Creatinine 1 0.64 mg/dL (0.66-1.25); EST GLOMERULAR FILTRATION RATE > 60.0 ML/MIN; Glucose 175 mg/dL (74-106); Potassium 3.8 mmol/L (3.5-5.1); SGOT/AST 85 U/L (17-59); SGPT/ALT 57 U/L (0-50); SODIUM 136 mmol/L (137-145); Total Protein 6.5 g/dL (6.3-8.2)
[2021-02-22 07:04] LABS: INR 1.42 (0.8-3.0); PROTIME 16.7 SECONDS (9.4-12.5)
[2021-02-22 07:09] LABS: Slide Review 1 YES
[2021-02-22] MEDS ORDERED: Decadron 4 MG INJ IV SCH (10:00)
[2021-02-22] MEDS ORDERED: Miralax Powder 17GM PACKET PO PRN (10:05)
[2021-02-22] MEDS: OLUMIANT PO SCH (10:33)
[2021-02-22] MEDS: ENOXAPARIN SODIUM SQ SCH (10:33)
[2021-02-22] MEDS: PROTONIX 40 MG IV IV SCH (10:36)
[2021-02-22] MEDS: ZOLOFT 50 MG TABLET PO SCH (10:44)
[2021-02-22] MEDS: ATARAX 25 MG PO SCH ×3 (11:44→21:18)
[2021-02-22] MEDS: Inderal 20 MG PO SCH ×2 (11:44→21:19)
[2021-02-22] MEDS: LIORESAL 10 MG PO SCH ×2 (11:45→21:20)
[2021-02-22] MEDS ORDERED: NON-FORMULARY ITEM (Hydroxyzine Hcl [Hydroxyzine Hcl] 50 MG Tablet) PO SCH (15:00)
[2021-02-22] MEDS ORDERED: BENZTROPINE MESYLATE 2 MG PO SCH (15:00)
[2021-02-22] MEDS: COGENTIN 0.5 MG PO SCH ×2 (15:54→21:18)
[2021-02-22] MEDS: REMDESIVIR 100 MG in Sodium Chloride 0.9% 100 ML BAG 100 ML IV SCH (21:18)
[2021-02-22] MEDS: zyPREXA 5MG TABLET PO SCH (21:21)
[2021-02-22] MEDS: TYLENOL EXTRA STRENGTH 500 MG PO PRN (21:25)
[2021-02-22] MEDS ORDERED: OLANZAPINE 20 MG PO SCH (22:00)
[2021-02-22] MEDS ORDERED: PROPRANOLOL HCL 10 MG PO SCH (22:00)
[2021-02-22] MEDS: Ativan 1 MG PO PRN (22:58)
[2021-02-23] MEDS ORDERED: VALBENAZINE TOSYLATE 80 MG PO SCH (10:00)
[2021-02-23] MEDS: ENOXAPARIN SODIUM SQ SCH (10:25)
[2021-02-23] MEDS: PROTONIX 40 MG IV IV SCH (10:25)
[2021-02-23] MEDS: Pepcid 20 MG VIAL IV SCH ×2 (10:25→21:55)
[2021-02-23] MEDS: OLUMIANT PO SCH (10:25)
[2021-02-23] MEDS: ZOLOFT 50 MG TABLET PO SCH (10:25)
[2021-02-23] MEDS: COGENTIN 0.5 MG PO SCH ×3 (10:26→21:54)
[2021-02-23] MEDS: ATARAX 25 MG PO SCH ×3 (10:27→21:53)
[2021-02-23] MEDS: LIORESAL 10 MG PO SCH ×2 (10:27→21:55)
[2021-02-23] MEDS: Inderal 20 MG PO SCH ×2 (10:29→21:54)
[2021-02-23] MEDS: MEDICATION INTERVENTION MC SCH (12:30)
[2021-02-23] MEDS: REMDESIVIR 100 MG in Sodium Chloride 0.9% 100 ML BAG 100 ML IV SCH (17:40)
[2021-02-23] MEDS: zyPREXA 5MG TABLET PO SCH (21:55)
[2021-02-23] MEDS: TYLENOL EXTRA STRENGTH 500 MG PO PRN (21:56)
[2021-02-23] MEDS: Decadron 4 MG INJ IV SCH (22:00)
[2021-02-24 06:36] LABS: INR 1.34 (0.8-3.0); PROTIME 15.8 SECONDS (9.4-12.5)
[2021-02-24 06:44] LABS: ALBUMIN 3.3 g/dL (3.5-5.0); ALKALINE PHOSPHATASE 70 U/L (38-126); ANION GAP 16.5 MEQ/L (5-15); BLOOD UREA NITROGEN 19 mg/dL (9-20); CHLORIDE 103 mmol/L (98-107); Calcium 8.4 mg/dL (8.4-10.2); Carbon Dioxide 26 mmol/L (22-30); Creatinine 1 0.72 mg/dL (0.66-1.25); EST GLOMERULAR FILTRATION RATE > 60.0 ML/MIN; Glucose 156 mg/dL (74-106); Potassium 3.8 mmol/L (3.5-5.1); SGOT/AST 71 U/L (17-59); SGPT/ALT 54 U/L (0-50); SODIUM 141 mmol/L (137-145); Total Protein 6.4 g/dL (6.3-8.2)
--- NOTE | 2021-02-24 08:33 | HP ---
CHIEF COMPLAINT: Shortness of breath on activity. HISTORY OF PRESENT ILLNESS: The patient is a 45 year-old white male who states for several days he has become progressively more short of breath on activity. He had a slight cough. No problems with GI tract. He has had no known exposure to COVID. He has had no immunization to COVID. His test was positive this evening in the emergency room. He denies any hemoptysis. No history of pneumonia although he had a spontaneous pneumothorax when he was 16. He is on two antibiotics because he was diagnosed with pneumonia several days ago. He was not any better and he had gotten more and more short of breath and came to the emergency room. His COVID test was negative three days ago. However, it is positive this evening. His O2 was 88% in the emergency room and actually dropped down to 84% when he got up to walk. TRAVEL RISK: None. CORONAVIRUS SCREENING: No COVID vaccine. MEDICATIONS: Baclofen 10 two times a day, Benztropine 2 mg three times a day, Zoloft 200 q.d., propranolol 10 b.i.d., lithium 300 q.d., Albuterol just recently started 2 puffs every 4 hours PRN, Vibramycin 100 mg a day he just started. ALLERGIES: BEE POLLEN. PAST MEDICAL HISTORY: He probably told the emergency room his schizoaffective disorder, dystonia from previous medicines. PAST SURGICAL HISTORY: Fracture of left orbit in 2018. REVIEW OF SYSTEMS: CONSTITUTIONAL: He denies any fever, sweats, chills or fatigue. HEENT: No problems hearing or seeing. No loss of taste. CHEST: No shortness of breath. CVS: No chest pain, myocardial infarction or hypertension. ABDOMEN: No nausea or vomiting. No problems eating. : No problems urinating. Evaluated for chest pain but found to have no coronary artery disease, I guess. MUSCULOSKELETAL: Denies any pain. I do not know why he is on Flexeril. NEUROLOGIC: Denies any symptoms. He has had migraines in the past. PSYCHIATRIC: The patient denies any problems however he is on medications probably signifies that he is bipolar or maybe schizophrenic but he seems to be unwilling to share that history. SOCIAL HISTORY: No smoking history. The patient apparently lives with his girlfriend, with kids but kids are grown up. PHYSICAL EXAMINATION: VITAL SIGNS: Temperature 100F, pulse 90, respirations 26, blood pressure 100/80. O2 saturation presently 95% on 5 liters. HEENT: Pupils equal and reactive to light. Speech is normal. NECK: Supple without adenopathy. CHEST: Clear. CVS: No murmurs or gallops. ABDOMEN: Soft, obese. No masses or organomegaly. EXTREMITIES: No edema. No cyanosis. IMPRESSION: The patient has hypoxia at rest down to 84% with a positive COVID test. At this point he will be placed on oxygen, dexamethasone, Remdesivir, antibodies, anticoagulated and watch carefully. PROGNOSIS: Fair.
[2021-02-24] MEDS: OLUMIANT PO SCH (09:32)
[2021-02-24] MEDS: ZOLOFT 50 MG TABLET PO SCH (09:33)
[2021-02-24] MEDS: PROTONIX 40 MG IV IV SCH (09:33)
[2021-02-24] MEDS: Pepcid 20 MG VIAL IV SCH ×2 (09:34→22:30)
[2021-02-24] MEDS: ATARAX 25 MG PO SCH ×3 (09:34→22:27)
[2021-02-24] MEDS: COGENTIN 0.5 MG PO SCH ×3 (09:34→22:28)
[2021-02-24] MEDS: ENOXAPARIN SODIUM SQ SCH (09:34)
[2021-02-24] MEDS: LIORESAL 10 MG PO SCH ×2 (09:35→22:30)
[2021-02-24] MEDS: Inderal 20 MG PO SCH ×2 (09:35→22:29)
[2021-02-24] MEDS: MEDICATION INTERVENTION MC SCH (11:11)
--- NOTE | 2021-02-24 14:42 | PROG NOTE ---
CHIEF COMPLAINT: None. HISTORY: The patient is breathing easily however he is on optimizer at 4 liters to keep his O2 at 95%. He has a cough. He is eating well. No GI symptoms. He states he feels weak but not worse than yesterday. Chest with some crackles bilateral. Temperature normal. Chest x-ray on admission showed some moderate diffuse bilateral patchy pneumonitis typical for COVID. IMPRESSION: The patient is stable. Will continue on his medications at this time and mental health illness whatever it is, is stable on Zyprexa, Zoloft and Ingrezza. PROGNOSIS: Guarded.
[2021-02-24] MEDS: REMDESIVIR 100 MG in Sodium Chloride 0.9% 100 ML BAG 100 ML IV SCH (17:18)
[2021-02-24] MEDS: zyPREXA 5MG TABLET PO SCH (22:30)
[2021-02-24] MEDS: Decadron 4 MG INJ IV SCH (22:31)
[2021-02-25] MEDS: TYLENOL EXTRA STRENGTH 500 MG PO PRN (03:06)
[2021-02-25 05:37] LABS: Absolute Neutrophil Ct (ANC) 5.78 (1.4-6.9); Basophil (Absolute #) 0 (0-0.4); Eosinophil (Absolute #) 0 (0-0.5); Hematocrit 39.3 % (42-50); Lymphocyte (Absolute #) 0.52 (1.0-4.6); Lymphocytes % 7.9 % (24.0-44.0); Mean Cell Volume 86.4 fl (78-100); Mean Corpuscular Hemoglobin 28.6 pg (26-32); Mean Corpuscular Hgb Concent. 33.1 g/dl (32-36); Mean Platelet Volume 9.4 fl (7.5-11.0); Monocyte (Absolute #) 0.27 (0.0-1.3); Monocytes % 4.1 % (0.0-12.0); Platelet Count 331 K/mm3 (150-450); Red Blood Count 4.55 M/mm3 (4.1-5.6); Red Cell Distribution Width 13.1 % (11.5-14.0); White Blood Count 6.6 K/mm3 (4.0-10.5)
[2021-02-25 07:13] LABS: Slide Review 1 YES
[2021-02-25] MEDS: ENOXAPARIN SODIUM SQ SCH (09:25)
[2021-02-25] MEDS: OLUMIANT PO SCH (09:25)
[2021-02-25] MEDS: Pepcid 20 MG VIAL IV SCH ×2 (09:26→20:25)
[2021-02-25] MEDS: LIORESAL 10 MG PO SCH ×2 (09:26→20:25)
[2021-02-25] MEDS: PROTONIX 40 MG IV IV SCH (09:26)
[2021-02-25] MEDS: COGENTIN 0.5 MG PO SCH ×3 (09:27→20:24)
[2021-02-25] MEDS: ATARAX 25 MG PO SCH ×3 (09:27→20:24)
[2021-02-25] MEDS: Inderal 20 MG PO SCH ×2 (09:28→20:25)
[2021-02-25] MEDS: ZOLOFT 50 MG TABLET PO SCH (09:33)
[2021-02-25] MEDS: MEDICATION INTERVENTION MC SCH (10:38)
[2021-02-25] MEDS: PATIENT OWN MEDICATION PO SCH (13:20)
[2021-02-25] MEDS: REMDESIVIR 100 MG in Sodium Chloride 0.9% 100 ML BAG 100 ML IV SCH (18:14)
[2021-02-25] MEDS: zyPREXA 5MG TABLET PO SCH (20:25)
[2021-02-25] MEDS: Decadron 4 MG INJ IV SCH (23:25)
[2021-02-26] MEDS: Ativan 1 MG PO PRN ×3 (03:18→15:24)
[2021-02-26 06:37] LABS: Hematocrit 39.2 % (42-50); Hemoglobin 12.9 gm/dl (12.5-18.0); Mean Cell Volume 86.5 fl (78-100); Mean Corpuscular Hemoglobin 28.5 pg (26-32); Mean Corpuscular Hgb Concent. 32.9 g/dl (32-36); Mean Platelet Volume 9.6 fl (7.5-11.0); Platelet Count 335 K/mm3 (150-450); Red Blood Count 4.53 M/mm3 (4.1-5.6); Red Cell Distribution Width 13.2 % (11.5-14.0); White Blood Count 7.2 K/mm3 (4.0-10.5)
--- NOTE | 2021-02-26 08:37 | XRAY ---
Indication: Follow-up Covid 19. Comparison: February 21, 2021. Portable chest demonstrates worsening marked diffuse bilateral consolidating/nonconsolidating airspace disease. Remaining heart and bony thorax unremarkable.
[2021-02-26] MEDS: ENOXAPARIN SODIUM SQ SCH (10:32)
[2021-02-26] MEDS: OLUMIANT PO SCH (10:32)
[2021-02-26] MEDS: Pepcid 20 MG VIAL IV SCH (10:33)
[2021-02-26] MEDS: PROTONIX 40 MG IV IV SCH (10:33)
[2021-02-26] MEDS: ZOLOFT 50 MG TABLET PO SCH (10:33)
[2021-02-26] MEDS: PATIENT OWN MEDICATION PO SCH (10:33)
[2021-02-26] MEDS: COGENTIN 0.5 MG PO SCH ×2 (10:34→14:22)
[2021-02-26] MEDS: LIORESAL 10 MG PO SCH (10:34)
[2021-02-26] MEDS: Inderal 20 MG PO SCH (10:35)
[2021-02-26] MEDS: ATARAX 25 MG PO SCH ×2 (10:36→14:24)
[2021-02-26 11:36] LABS: Absolute Neutrophil Ct (ANC) 6.44 (1.4-6.9); BASOPHIL % 0.3 % (0.0-0.4); Basophil (Absolute #) 0.02 (0-0.4); Eosinophil % 0.8 % (0.00-5.0); Eosinophil (Absolute #) 0.06 (0-0.5); Hemoglobin 13.6 gm/dl (12.5-18.0); Lymphocyte (Absolute #) 0.75 (1.0-4.6); Lymphocytes % 9.6 % (24.0-44.0); Mean Cell Volume 86.3 fl (78-100); Mean Corpuscular Hemoglobin 28.6 pg (26-32); Mean Corpuscular Hgb Concent. 33.2 g/dl (32-36); Mean Platelet Volume 9.3 fl (7.5-11.0); Monocyte (Absolute #) 0.55 (0.0-1.3); Neutrophil % 82.3 % (36.0-66.0); Platelet Count 395 K/mm3 (150-450); Red Blood Count 4.75 M/mm3 (4.1-5.6); Red Cell Distribution Width 13.1 % (11.5-14.0); White Blood Count 7.8 K/mm3 (4.0-10.5)
[2021-02-26 11:46] LABS: ALBUMIN 3.5 g/dL (3.5-5.0); ALKALINE PHOSPHATASE 76 U/L (38-126); BLOOD UREA NITROGEN 17 mg/dL (9-20); CHLORIDE 104 mmol/L (98-107); Calcium 8.3 mg/dL (8.4-10.2); Carbon Dioxide 27 mmol/L (22-30); Creatinine 1 0.78 mg/dL (0.66-1.25); EST GLOMERULAR FILTRATION RATE > 60.0 ML/MIN; Glucose 108 mg/dL (74-106); Potassium 3.8 mmol/L (3.5-5.1); SGOT/AST 50 U/L (17-59); SGPT/ALT 46 U/L (0-50); SODIUM 141 mmol/L (137-145)
[2021-02-26 11:51] LABS: A-aADO2 603; ABG HEMOGLOBIN 14.1; ABG POTASSIUM 3.8 (3.5-5.1); ABG SITE RIGHT RADIAL; ALLEN TEST OK? YES; ARTERIAL BLD GAS O2 SATURATION 92.4 % (95-100); ARTERIAL BLOOD GAS BASE EXCESS 5.5 (-2.0-2.0); ARTERIAL BLOOD GAS FIO2 100 %; ARTERIAL BLOOD GAS PCO2 37 mmHg (35-45); ARTERIAL BLOOD GAS PO2 64 mmHg (75-100); CARBOXYHEMOGLOBIN 0.9 % THgb (0.0-6.9); HCO3- 28.9 (22-28); HGB O2 SAT 90.8 g/dF (94-100); Methhemoglobin 0.8 % (1.4-1.5)
--- NOTE | 2021-02-26 15:01 | PROG NOTE ---
DATE: 02/26/2021 HOSPITAL COURSE: Additional history from his girlfriend shows that he has pretty bad schizophrenia. He had gotten worse before he got COVID with hallucinations of people in the house and people that are not there. He actually punched out the wall maybe. He has also become incontinent of stool and urine. He is on the maximum amount of Zyprexa. Here he has become more somnolent simply due to deterioration of his COVID. He continuously removes his mask unless is fully asleep. His O2 then drops to 77%. Put the mask on and it comes up to 92%. He is on 10 liters on mask. I informed his girlfriend that he may well have to be intubated if he continues to deteriorate and explained that to her. I told her that once he gets better he needs a full neurologic and psychiatric evaluation more than what I can do. I cannot do anything with that here in the COVID unit. Cannot put him in a MRI. Cannot get a psychiatrist to see him and he is not capable of talking to one now. I did think about increasing his tranquilizer but that is maxed out on the Zyprexa. His chest x-ray was not that bad a few days ago. His temperature is normal. His D-dimer was down the other day to like 600 so although he deteriorated in his multiple problems not related to COVID that seems to make things worse. Will continue to observe closely. Continue all COVID medicines.
[2021-02-26] MEDS ORDERED: Ativan 2 MG/1 ML VIAL IV ONE (18:38)
[2021-02-26] MEDS ORDERED: Ativan 2 MG/1 ML VIAL ONE (18:39)
[2021-02-26] MEDS ORDERED: REMDESIVIR 100 MG in Sodium Chloride 0.9% 100 ML BAG 100 ML IV SCH (20:00)
--- NOTE | 2021-02-27 10:35 | CONS ---
CONSULT DATE: 02/26/2021 REASON FOR CONSULT: Hypoxic respiratory failure, COVID positive. HISTORY: Jason Brock is a 45-year-old male who had been admitted to [facility] with complaints of acute severe hypoxic respiratory failure. The patient has been on facial oxygen with periodic mask saturating 90%. He has been extremely restless and has received a dose of psychotropic medication along with Ativan. At the time of my evaluation he is very groggy and unable to answer any questions. He has been treated with standard protocol for COVID-19. PAST MEDICAL HISTORY: Positive for history of bipolar disorder, obstructive airway disease. He is also on Baclofen for unknown reason. PAST SURGICAL HISTORY: The patient had fracture of left arm in 2018. PERSONAL AND SOCIAL HISTORY: He lives with his girlfriend. He is with kids. MEDICATIONS: Home and current medications are reviewed. ALLERGIES: BEE POLLEN. PHYSICAL EXAMINATION: This is a middle aged male who appears obtunded. The patient only grimaces. Vital signs noted. HEENT: Normocephalic. Oral exam limited. NECK: Short. Accessory muscles are mildly prominent. CVS: First and second heart sounds are normal, regular, rhythmic. RESPIRATORY: Shows diminished breath sounds. ABDOMEN: Obese. EXTREMITIES: No edema is noted. LABORATORY DATA AND TESTS: Sodium 141, potassium 3.8, chloride 104, bicarb 27, BUN 17, creatinine 0.78. The pH is 7.50, pCO2 37, pO2 64. White count 7.8, hemoglobin 13.6, hematocrit 41, PLT count 395,000. D-dimer 609. Chest x-ray shows significant consolidation involving almost all areas of lung with very little viable pulmonary parenchyma visible. ASSESSMENT: This is a 45-year-old male admitted with: 1) Acute severe hypoxic respiratory failure. 2) COVID-19 positive with viral pneumonia. 3) Schizoaffective disorder on medication leading to obtundation. RECOMMENDATIONS: 1) I agree with present treatment. 2) Will place the patient on AVAPS mode. 3) If mentation remains that of concern then the patient is likely heading for intubation and mechanical ventilation. He may require transfer to a higher level of care as well. In the meantime, I agree with current treatment. Continue full dose anticoagulation and will continue to follow. Prognosis remains guarded at best. Thank you for allowing me to participate in the care of your patient.
[2021-03-10 16:01] VITALS: BP 108/79; PULSE 78; O2SAT 99
--- NOTE | 2021-03-26 10:17 | DS ---
DISCHARGE DIAGNOSES: 1) COVID PNEUMONIA. 2) CHEST PAIN. 3) ANXIETY. HOSPITAL COURSE: The patient is a 45-year-old white male who presented positive for COVID to his nurse practitioner, Lilibeth Crowley. He had some confusion and anxious. D-dimer was minimally elevated 420. He had a few rales bilateral. D-dimer on the second day was up to 620. He was on 2 liters of oxygen and much better. He has history of schizoaffective schizophrenia apparently affective schizoid defect. He remained confused during his stay and got worse. He will not keep his mask on by the . He is not able to speak. He was extremely agitated, did not try to get out of bed but was unable to. His O2 levels dropped. I talked to his girlfriend of numerous years who said that this is not his normal state that normally is agreeable, can speak but that really in the last couple of weeks he became incontinent of stool and urine. He got COVID and has become progressively since he has been in here so that he does not speak, not interacting correctly and will not keep his mask on. We tried to sedate him without much help with any drugs. We tried actually to put paper clips to hold his mask on. He was needing BiPAP. Dr. Antony Middleton saw him in consultation and agreed that really he is high risk for needing intubation due to advancement of the COVID pneumonia. His schizophrenia disease is worse. His problem with incontinence is stool and urine this is confusing and is probably due to his hypoxia. However it occurred before he got real sick and will need further evaluation once he improves from the COVID. He will be discharged to Dr. Antony Middleton's care at [facility]. PROGNOSIS: Fair.
== END 2021-02-26 18:45 | disposition short-term general hospital (02) | DRG 177 ==
LOC: ED 16:39 → MED SURG 20:47 → OBSVTOIN 02-22 10:00
PROVIDERS: ADMIT Family Medicine; ATTEND Family Medicine
DX: U07.1 COVID-19 (principal); J12.82 Pneumonia due to coronavirus disease 2019; R53.83 Other fatigue; R11.2 Nausea with vomiting, unspecified; R09.02 Hypoxemia; F20.9 Schizophrenia, unspecified; R32 Unspecified urinary incontinence; Z79.899 Other long term (current) drug therapy; R79.1 Abnormal coagulation profile; R41.0 Disorientation, unspecified; F41.9 Anxiety disorder, unspecified; R07.9 Chest pain, unspecified
CPT/HCPCS: 0241U; 36415; 36600; 71045; 80053; 80178; 81001; 82375; 82803; 83605; 85025; 85027; 85379; 85610; 85730; 93005; 93268; 94002; 94640; 94762; 99285; G0378; J1100; J1650; J2060; A9270-GY

== ENCOUNTER 2021-04-13 12:08 | Emergency (ER) | payer MEDICARE ==
--- NOTE | 2021-04-13 12:10 | ERPHSYRPT ---
- History of Present Illness Time Seen by Provider: 04/13/21 12:09 Source: patient, family Exam Limitations: physical impairment (Mild brain damage) Physician History: This is a 45-year-old white male who has chronic right hand pain without trauma or injury. His pain seemed to come on after he was hypoxic with COVID-19 infection requiring mechanical ventilation for a long period of time. Eventually, he was weaned off the ventilator and he has had chronic right hand pain ever since. He was placed on gabapentin. This alone has not been helping. He has added Tylenol and naproxen which also have not helped. He sees Cristina Crowley the nurse practitioner as his primary provider. Occurred: other (Chronic recurring) Quality: constant, aching Severity of Pain-Max: moderate Severity of Pain-Current: moderate Extremities Pain Location: hand: right Associated Symptoms: none Allergies/Adverse Reactions: bee pollen Allergy (Intermediate, Verified 04/13/21 12:29) Swelling Home Medications: Baclofen 10 mg [Lioresal 10 mg] 20 mg PO BID 07/27/17 [History] Benztropine Mesylate 2 mg PO TID 07/27/17 [History] Sertraline HCl [Zoloft] 200 mg PO QAM 07/27/17 [History] Propranolol HCl 10 mg PO BID 03/30/19 [History] Albuterol 8 gm Mdi Hfa [Ventolin Hfa MDI] 8 gm IH DAILY 02/21/21 [History] Doxycycline Hyclate 100 mg [Vibramycin 100 MG] 1 ea BID 02/21/21 [History] OLANZapine [Zyprexa] 20 mg PO QHS 02/21/21 [History] Valbenazine Tosylate [Ingrezza] 80 mg PO DAILY 02/21/21 [History] hydrOXYzine HCL [Hydroxyzine HCl] 50 mg PO TID 02/21/21 [History] Hx Tetanus, Diphtheria Vaccination/Date Given: Yes Hx Influenza Vaccination/Date Given: Yes Hx Pneumococcal Vaccination/Date Given: No Travel Risk - International Travel Have you traveled outside of the country in past 3 weeks: No - Coronavirus Screening Are you exhibiting any of the following symptoms?: No Close contact with a COVID-19 positive Pt in past 14-21 Days: No - Vaccine Status Have you recieved a Covid-19 vaccination: No - Review of Systems Constitutional: No Symptoms Eyes: No Symptoms Ears, Nose, & Throat: No Symptoms Respiratory: No Symptoms Cardiac: No Symptoms Abdominal/Gastrointestinal: No Symptoms Genitourinary Symptoms: No Symptoms Musculoskeletal: Other (Right hand pain) Skin: No Symptoms Neurological: No Symptoms Psychological: No Symptoms Endocrine: No Symptoms Hematologic/Lymphatic: No Symptoms Immunological/Allergic: No Symptoms All Other Systems: Reviewed and Negative - Past Medical History Pertinent Past Medical History: Yes Neurological History: Migraines ENT History: No Pertinent History Cardiac History: Angina Respiratory History: Bronchitis, Other Endocrine Medical History: No Pertinent History Musculoskeletal History: Fractures GI Medical History: GERD History: No Pertinent History Psycho-Social History: Anxiety, Depression, Other Male Reproductive Disorders: No Pertinent History Other Medical History: schizo affective disorder, 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 - Past Surgical History Past Surgical History: Yes Neuro Surgical History: No Pertinent History Cardiac: No Pertinent History Respiratory: No Pertinent History Gastrointestinal: No Pertinent History Genitourinary: No Pertinent History Musculoskeletal: Orthopedic Surgery Male Surgical History: No Pertinent History Other Surgical History: fracture left orbit 2017 - Social History Smoking Status: Never smoker Exposure to second hand smoke: No Drug Use: none Patient Lives Alone: No Significant Family History: no pertinent family hx - Nursing Vital Signs Nursing Vital Signs: Initial Vital Signs Temperature 97.5 F 04/13/21 12:19 Pulse Rate 78 04/13/21 12:19 Respiratory Rate 18 04/13/21 12:19 Blood Pressure 115/79 04/13/21 12:19 O2 Sat by Pulse Oximetry 96 04/13/21 12:19 Pain Scale Pain Intensity 10 - Physical Exam General Appearance: no apparent distress, alert, anxiety, obese Eyes, Ears, Nose, Throat Exam: normal ENT inspection, moist mucous membranes Neck Exam: normal inspection, non-tender, supple, full range of motion Cardiovascular/Respiratory Exam: chest non-tender, no respiratory distress Abdominal Exam: non-tender Back Exam: normal inspection, normal range of motion, No CVA tenderness, No vertebral tenderness Shoulder Exam: normal inspection, non-tender, no evidence of injury, normal ROM Elbow/Forearm Exam: normal inspection, non-tender, no evidence of injury, normal ROM Wrist Exam: normal inspection, non-tender, no evidence of injury, normal ROM Hand Exam: normal inspection, no evidence of injury, normal ROM Neuro/Tendon Exam: normal sensation, normal motor functions, normal tendon functions, no evidence tendon injury Mental Status Exam: alert, oriented x 3 Skin Exam: normal color, warm, dry SpO2 Interpretation: normal O2 Delivery: Room Air - Course Nursing assessment & vital signs reviewed: Yes - Progress Progress: unchanged Counseled pt/family regarding: diagnosis, need for follow-up - Departure Departure Disposition: Home Clinical Impression: Chronic pain of right hand Condition: Stable Critical Care Time: No Referrals: CHULA CROWLEY NP [Primary Care Provider] - Follow up/PCP as directed Additional Instructions: Stop the naproxen and plain Tylenol. Use the Percocet pain medicine that we are sending home. Contact Cristina Crowley tomorrow morning to make arrangements for pain management with possible referral to pain specialist and neurologist to address the chronic right hand pain.
[2021-04-13 12:29] VITALS: BP 115/79; PULSE 78; O2SAT 96
[2021-04-13] MEDS ORDERED: OXYCODONE-ACETAMINOPHEN 10-325 PO STA (12:59)
[2021-04-13] MEDS ORDERED: PERCOCET TABLET 5/325MG PO STA (12:59)
[2021-04-13] MEDS ORDERED: PERCOCET TABLET 5/325MG ONE (13:22)
[2021-04-13] MEDS ORDERED: OXYCODONE-ACETAMINOPHEN 10-325 ONE (13:22)
== END 2021-04-13 13:49 | disposition home or self-care (01) ==
LOC: ED 12:08
DX: M79.641 Pain in right hand (principal); G89.29 Other chronic pain; U09.9 Post COVID-19 condition, unspecified; Z79.891 Long term (current) use of opiate analgesic
CPT/HCPCS: 99283; A9270-GY

== ENCOUNTER 2021-05-17 15:17 | Emergency (ER) | payer MEDICARE ==
[2021-05-17] MEDS ORDERED: MORPHINE SULFATE 4 MG INJ IV ONE (15:40)
[2021-05-17] MEDS ORDERED: Zofran 4 MG/2 ML VIAL IV ONE (15:40)
[2021-05-17] MEDS ORDERED: Zofran 4 MG/2 ML VIAL ONE (15:43)
[2021-05-17] MEDS ORDERED: MORPHINE SULFATE 4 MG INJ ONE (15:43)
[2021-05-17 16:02] LABS: Absolute Neutrophil Ct (ANC) 3.97 (1.4-6.9); Basophil (Absolute #) 0.01 (0-0.4); Eosinophil % 1.4 % (0.00-5.0); Hemoglobin 12.2 gm/dl (12.5-18.0); Lymphocyte (Absolute #) 2.39 (1.0-4.6); Lymphocytes % 32.5 % (24.0-44.0); Mean Corpuscular Hemoglobin 29.7 pg (26-32); Mean Platelet Volume 9.2 fl (7.5-11.0); Monocyte (Absolute #) 0.88 (0.0-1.3); Platelet Count 340 K/mm3 (150-450); Red Blood Count 4.11 M/mm3 (4.1-5.6); Red Cell Distribution Width 15.2 % (11.5-14.0); White Blood Count 7.4 K/mm3 (4.0-10.5)
[2021-05-17 16:11] LABS: ALBUMIN 4.3 g/dL (3.5-5.0); ALKALINE PHOSPHATASE 98 U/L (38-126); ANION GAP 14.6 MEQ/L (5-15); BLOOD UREA NITROGEN 18 mg/dL (9-20); CHLORIDE 101 mmol/L (98-107); Calcium 9.2 mg/dL (8.4-10.2); Carbon Dioxide 27 mmol/L (22-30); Creatinine 1 0.88 mg/dL (0.66-1.25); EST GLOMERULAR FILTRATION RATE > 60.0 ML/MIN; Glucose 97 mg/dL (74-106); LIPASE 229 U/L (23-300); Potassium 4.3 mmol/L (3.5-5.1); SGOT/AST 48 U/L (17-59); SGPT/ALT 41 U/L (0-50); SODIUM 139 mmol/L (137-145); Total Protein 8.1 g/dL (6.3-8.2)
[2021-05-17 16:20] LABS: Appearance CLEAR (CLEAR); Bilirubin NEGATIVE (NEGATIVE); Blood NEGATIVE Ery/ul (0-5); Glucose NEGATIVE (NEGATIVE); Ketones NEGATIVE (NEGATIVE); Leukocyte Esterase NEGATIVE (NEGATIVE); Nitrite NEGATIVE (NEGATIVE); Protein,Urine Dip NEGATIVE (Negative); Specific Gravity 1.016 (1.005-1.025); Urobilinogen NEGATIVE mg/dL (0-1)
[2021-05-17 17:05] VITALS: BP 104/79; PULSE 83; O2SAT 98
--- NOTE | 2021-05-17 17:16 | ERPHSYRPT ---
- History of Present Illness Time Seen by Provider: 05/17/21 15:22 Historian: patient Exam Limitations: no limitations Patient Subjective Stated Complaint: kris flank pain Triage Nursing Assessment: Patient ambulated back to ED and transferred self to bed. Patient A+O X 3. Patient's skin pink, warm and dry. Patient complains of kris flank pain 10/10 for one week. Patient states his urine is foamy and has been having urgency and frequency. Abdomen soft and round with BS X 4. Physician History: 45 years old male with history of schizoaffective disorder, recent COVID-19 needing intubation for 5 weeks, right hand weakness presented in the ER with chief complaint of 1 week history of bilateral flank cramping with nonradiation, moderate intensity without any significant aggravating or relieving factors. Also reports increased urinary frequency but no hesitancy urgency, numbness tingling or weakness of lower extremities. Denies any midline back pain. Denies fever or chills. Timing/Duration: week(s) (1), gradual onset, worse Activities at Onset: rest Quality: cramping Abdominal Pain Onset Location: flank Pain Radiation: no radiation Severity of Pain-Max: moderate Severity of Pain-Current: moderate Modifying Factors: Improves With: nothing Associated Symptoms: denies symptoms Allergies/Adverse Reactions: bee pollen Allergy (Intermediate, Verified 05/17/21 15:24) Swelling Home Medications: Baclofen 10 mg [Lioresal 10 mg] 20 mg PO BID 07/27/17 [History] Benztropine Mesylate 2 mg PO TID 07/27/17 [History] Sertraline HCl [Zoloft] 200 mg PO QAM 07/27/17 [History] Propranolol HCl 10 mg PO BID 03/30/19 [History] Albuterol 8 gm Mdi Hfa [Ventolin Hfa MDI] 8 gm IH DAILY 02/21/21 [History] Doxycycline Hyclate 100 mg [Vibramycin 100 MG] 1 ea BID 02/21/21 [History] OLANZapine [Zyprexa] 20 mg PO QHS 02/21/21 [History] Valbenazine Tosylate [Ingrezza] 80 mg PO DAILY 02/21/21 [History] hydrOXYzine HCL [Hydroxyzine HCl] 50 mg PO TID 02/21/21 [History] Hx Tetanus, Diphtheria Vaccination/Date Given: Yes Hx Influenza Vaccination/Date Given: No Hx Pneumococcal Vaccination/Date Given: No Immunizations Up to Date: Yes Travel Risk - International Travel Have you traveled outside of the country in past 3 weeks: No - Coronavirus Screening Are you exhibiting any of the following symptoms?: No Close contact with a COVID-19 positive Pt in past 14-21 Days: No - Vaccine Status Have you recieved a Covid-19 vaccination: No - Review of Systems Constitutional: No Symptoms Eyes: No Symptoms Ears, Nose, & Throat: No Symptoms Respiratory: No Symptoms Cardiac: No Symptoms Abdominal/Gastrointestinal: No Symptoms Genitourinary Symptoms: Flank Pain Musculoskeletal: No Symptoms Skin: No Symptoms Neurological: Sensory Changes Psychological: Anxiety Endocrine: No Symptoms Hematologic/Lymphatic: No Symptoms Immunological/Allergic: No Symptoms - Past Medical History Pertinent Past Medical History: Yes Neurological History: Other ENT History: No Pertinent History Cardiac History: No Pertinent History Respiratory History: Other Endocrine Medical History: No Pertinent History Musculoskeletal History: Other GI Medical History: GERD History: No Pertinent History Psycho-Social History: Anxiety, Depression, Other Male Reproductive Disorders: No Pertinent History Other Medical History: PATIENT REPORTS HAVING LOWER BACK PAIN AND BUTTOCK DISCOMFORT SINCE HOSPITALIZATION. ALSO "NERVE DAMAGE" RIGHT LITTLE FINGER WITH "BURNING", "PAIN" AND UNABLE TO STRAIGHTEN IT. SCHIZOAFFECTIVE DISORDER. - Past Surgical History Past Surgical History: Yes Neuro Surgical History: No Pertinent History Cardiac: No Pertinent History Respiratory: No Pertinent History Gastrointestinal: No Pertinent History Genitourinary: No Pertinent History Musculoskeletal: Orthopedic Surgery Male Surgical History: No Pertinent History Other Surgical History: fracture left orbit 2018. COVID in february 21, 2021 on vent for 5 weeks - Social History Smoking Status: Never smoker Exposure to second hand smoke: No Drug Use: none Patient Lives Alone: No Significant Family History: no pertinent family hx - Nursing Vital Signs Nursing Vital Signs: Initial Vital Signs Temperature 98.0 F 05/17/21 15:25 Pain Scale Pain Intensity 7 - Physical Exam General Appearance: no apparent distress, alert, anxiety Eye Exam: PERRL/EOMI Ears, Nose, Throat Exam: normal ENT inspection, pharynx normal Neck Exam: normal inspection, non-tender, supple, full range of motion Respiratory Exam: normal breath sounds, lungs clear Cardiovascular Exam: regular rate/rhythm, normal heart sounds Gastrointestinal/Abdomen Exam: soft, normal bowel sounds, No tenderness Back Exam: normal inspection, normal range of motion, CVA tenderness, muscle spasm (Bilateral flank tenderness with some muscle spasms), No vertebral tenderness Extremity Exam: normal inspection Neurologic Exam: alert, oriented x 3, cooperative Skin Exam: normal color SpO2 Interpretation: normal SpO2: 98 O2 Delivery: Room Air Ordered Tests: Active Orders 24 hr Category Date Time Status IV Insertion STAT Care 05/17/21 15:40 Completed ABDOMEN AND PELVIS W/0 CONTRAS [CT] Stat Exams 05/17/21 15:40 Completed CBC W DIFF Stat Lab 05/17/21 15:40 Completed CMP Stat Lab 05/17/21 15:40 Completed LIPASE Stat Lab 05/17/21 15:40 Completed UA W/RFX UR CULTURE Stat Lab 05/17/21 15:41 Completed Medication Summary Discontinued Medications Generic Name Dose Route Start Last Admin Trade Name Freq PRN Reason Stop Dose Admin Morphine Sulfate 4 mg 05/17/21 15:40 05/17/21 15:45 Morphine Sulfate 4 Mg/Ml Injection IV 05/17/21 15:41 4 mg STAT ONE Administration Morphine Sulfate Confirm 05/17/21 15:43 Morphine Sulfate 4 Mg/Ml Injection Administered 05/17/21 15:44 Dose 4 mg .ROUTE .STK-MED ONE Ondansetron HCl 4 mg 05/17/21 15:40 05/17/21 15:45 Ondansetron Hcl 4 Mg/2 Ml Vial IV 05/17/21 15:41 4 mg STAT ONE Administration Ondansetron HCl Confirm 05/17/21 15:43 Ondansetron Hcl 4 Mg/2 Ml Vial Administered 05/17/21 15:44 Dose 4 mg .ROUTE .STK-MED ONE Lab/Rad Data: Laboratory Result Diagrams 05/17/21 15:40 05/17/21 15:40 Laboratory Results 05/17/21 05/17/21 05/17/21 Range/Units 15:41 15:40 15:40 WBC 7.4 (4.0-10.5) K/mm3 RBC 4.11 (4.1-5.6) M/mm3 Hgb 12.2 L (12.5-18.0) gm/dl Hct 37.0 L (42-50) % MCV 90.0 (78-100) fl MCH 29.7 (26-32) pg MCHC 33.0 (32-36) g/dl RDW 15.2 H (11.5-14.0) % Plt Count 340 (150-450) K/mm3 MPV 9.2 (7.5-11.0) fl Gran % 54.0 (36.0-66.0) % Eos # (Auto) 0.10 (0-0.5) Absolute Lymphs (auto) 2.39 (1.0-4.6) Absolute Monos (auto) 0.88 (0.0-1.3) Lymphocytes % 32.5 (24.0-44.0) % Monocytes % 12.0 (0.0-12.0) % Eosinophils % 1.4 (0.00-5.0) % Basophils % 0.1 (0.0-0.4) % Absolute Granulocytes 3.97 (1.4-6.9) Basophils # 0.01 (0-0.4) Sodium 139 (137-145) mmol/L Potassium 4.3 (3.5-5.1) mmol/L Chloride 101 (98-107) mmol/L Carbon Dioxide 27 (22-30) mmol/L Anion Gap 14.6 (5-15) MEQ/L BUN 18 (9-20) mg/dL Creatinine 0.88 (0.66-1.25) mg/dL Estimated GFR > 60.0 ML/MIN Glucose 97 (74-106) mg/dL Calcium 9.2 (8.4-10.2) mg/dL Total Bilirubin 0.40 (0.2-1.3) mg/dL AST 48 (17-59) U/L ALT 41 (0-50) U/L Alkaline Phosphatase 98 (38-126) U/L Serum Total Protein 8.1 (6.3-8.2) g/dL Albumin 4.3 (3.5-5.0) g/dL Lipase 229 (23-300) U/L Urine Color YELLOW (YELLOW) Urine Appearance CLEAR (CLEAR) Urine pH 7.0 (5-6) Ur Specific [place] 1.016 (1.005-1.025) Urine Protein NEGATIVE (Negative) Urine Ketones NEGATIVE (NEGATIVE) Urine Blood NEGATIVE (0-5) Volodymyr/ul Urine Nitrite NEGATIVE (NEGATIVE) Urine Bilirubin NEGATIVE (NEGATIVE) Urine Urobilinogen NEGATIVE (0-1) mg/dL Ur Leukocyte Esterase NEGATIVE (NEGATIVE) Urine WBC (Auto) NONE (0-5) /HPF Urine RBC (Auto) NONE (0-2) /HPF U Epithel Cells (Auto) NONE (FEW) /HPF Urine Bacteria (Auto) NONE (NEGATIVE) /HPF Urine Culture Reflexed NO (NO) Urine Glucose NEGATIVE (NEGATIVE) mg/dL - Progress Progress: improved, re-examined Progress Note: 05/17/21 17:14 Is given symptomatic treatment, on reevaluation feeling better. Lab work including CT abdomen pelvis without contrast is negative for any acute findings. I believe patient has muscle spasm, recommended continue with baclofen and Tylenol ibuprofen and outpatient follow-up. Discussed signs symptoms of worsening needing return to ER which he seems understanding. Counseled pt/family regarding: lab results, diagnosis, need for follow-up, rad results - Departure Departure Disposition: Home Clinical Impression: Flank pain, Muscle spasm Condition: Stable Critical Care Time: No Referrals: CHULA SOSA NP [Primary Care Provider] - Follow up/PCP as directed (1-2 days for reevaluation) Instructions: Low Back Pain (DC), Muscle Spasms (DC) Additional Instructions: Take Tylenol/ibuprofen as needed along with baclofen. Follow-up with primary care for reevaluation. Return to ER for worsening pain, difficulty urination, numbness tingling weakness of lower extremities or loss of bowel or bladder control.
--- NOTE | 2021-05-17 18:24 | XRAY ---
Indication: Bilateral flank pain. "Foamy" urine. Multiple contiguous axial images obtained through the abdomen and pelvis without contrast. Comparison: November 29, 2019. Lung bases are clear. Heart is not enlarged. Stomach distended with food/fluid. Noncontrasted stomach and bowel loops nonobstructed. Normal appendix. There is again mild diffuse fecal stasis. No free fluid/air. Again 23.6 cm fatty up hepatomegaly and 14 cm splenomegaly. Remaining liver, gallbladder, pancreas, spleen, adrenal glands, kidneys, ureters, bladder, and aorta are unremarkable for noncontrast exam. Minimal biiliac vascular calcifications. No AAA. Osseous structures intact again with minimal degenerative changes throughout the thoracolumbar spine. Impression: 1. Again mild fecal stasis, fatty up hepatomegaly, and splenomegaly. 2. Remaining CT abdomen/pelvis without contrast exam is negative. Comment: Preliminary interpretation made by [facility]. No critical discrepancy.
== END 2021-05-17 17:18 | disposition home or self-care (01) ==
LOC: ED 15:17
DX: R10.9 Unspecified abdominal pain (principal); M62.838 Other muscle spasm; F25.9 Schizoaffective disorder, unspecified; Z86.16 Personal history of COVID-19; R35.0 Frequency of micturition; Z79.899 Other long term (current) drug therapy
CPT/HCPCS: 36000; 36415; 74176; 80053; 81001; 83690; 85025; 96374; 96375; 99284; J2270; J2405

== ENCOUNTER 2021-11-22 17:01 | Emergency (ER) | payer MEDICARE ==
[2021-11-22] MEDS ORDERED: TORAdol 30 mg Injection IM ONE (18:32)
[2021-11-22] MEDS ORDERED: Norflex 60 MG/2 ML IM ONE (18:33)
[2021-11-22] MEDS ORDERED: TORAdol 30 mg Injection ONE (18:38)
[2021-11-22] MEDS ORDERED: Norflex 60 MG/2 ML ONE (18:39)
--- NOTE | 2021-11-22 19:03 | ERPHSYRPT ---
- History of Present Illness Time Seen by Provider: 11/22/21 17:02 Source: patient Exam Limitations: no limitations Patient Subjective Stated Complaint: pt c/o of back pain and difficulty breathing Triage Nursing Assessment: Pt brought to the ER by his girlfriend, evens iverson, rates pain as 01/26, had covid in March 2021 and was in a coma for a month on the vent and since he got out of the hospital he has been having back pain and was told that he has bone spurs, pt c/o of the pain being on the kris lower and mid sections of the back and then the top right side, pain got unbearable today, pt also c/o of difficulty breathing due to the pain in his back Physician History: 46-year-old male presented in the ER with chief complaint of back pain. Patient reports having chronic back pain since since he has COVID-19 and was intubated for over a month and does have nerve damage right upper extremity. Last couple of days pain is getting worse and denies any trauma to the back, exertional work. No numbness tingling weakness of lower extremities. No loss of bowel or bladder control. It is through the entire back more poor in the bilateral sacroiliac area. Reports having back cramping with deep breathing. No difficulty breathing but what he has his baseline from since COVID-19. No chest pain. Timing/Duration: day(s) (2), constant, worse Method of Injury: unknown Quality: sharp Back Pain Location: T-spine, lumbar spine, paraspinous muscles Severity of Pain-Max: severe Severity of Pain-Current: severe Modifying Factors: Worsens With: movement Associated Symptoms: lower back pain, muscle spasms, No fever, No urinary incontinence, No loss of bowel control, No constipation, No problems urinating, No numbness in legs/feet, No weakness Previous symptoms: same symptoms as today Allergies/Adverse Reactions: bee pollen Allergy (Intermediate, Verified 11/22/21 18:09) Swelling Home Medications: Sertraline HCl [Zoloft] 200 mg PO QAM 07/27/17 [History] Albuterol 8 gm Mdi Hfa [Ventolin Hfa MDI] 8 gm IH DAILY 02/21/21 [History] OLANZapine [Zyprexa] 20 mg PO QHS 02/21/21 [History] hydrOXYzine HCL [Hydroxyzine HCl] 50 mg PO TID 02/21/21 [History] Fluticasone/Umeclidin/Vilanter [Trelegy Ellipta 200-62.5-25] 1 inh PO DAILY 11/22/21 [History] PANTOPRAZOLE 40 mg Tablet [Protonix 40MG Tablet] 40 mg PO QAM 11/22/21 [History] amantadine HCL [Amantadine] 100 mg PO BID 11/22/21 [History] Hx Tetanus, Diphtheria Vaccination/Date Given: Yes Hx Influenza Vaccination/Date Given: No Hx Pneumococcal Vaccination/Date Given: No Travel Risk - International Travel Have you traveled outside of the country in past 3 weeks: No - Coronavirus Screening Are you exhibiting any of the following symptoms?: No Close contact with a COVID-19 positive Pt in past 14-21 Days: No - Vaccine Status Have you recieved a Covid-19 vaccination: No - Review of Systems Constitutional: No Symptoms Eyes: No Symptoms Ears, Nose, & Throat: No Symptoms Respiratory: No Symptoms Cardiac: No Symptoms Abdominal/Gastrointestinal: No Symptoms Genitourinary Symptoms: No Symptoms Musculoskeletal: Back Pain Neurological: No Symptoms Endocrine: No Symptoms Hematologic/Lymphatic: No Symptoms Immunological/Allergic: No Symptoms - Past Medical History Pertinent Past Medical History: Yes Neurological History: Migraines ENT History: No Pertinent History Cardiac History: No Pertinent History Respiratory History: Other Endocrine Medical History: No Pertinent History Musculoskeletal History: Degenerative Disk Disease GI Medical History: GERD History: No Pertinent History Psycho-Social History: Anxiety, Depression, Other Male Reproductive Disorders: No Pertinent History Other Medical History: HAD COVID LAST YEAR AND CONTINUES TO HAVE SOME BREATHING ISSUES BUT STATES LUNGS ARE IMPROVING. ALSO HAD NERVE DAMAGE RIGHT AND WITH DECREASED SENSATION, STRENGTH AND PAIN BUT STATES NUMBNESS IS GONE. OTHER PMHX: GERD, SCHIZOPHRENIA, DYSTONIA, - Past Surgical History Past Surgical History: Yes Neuro Surgical History: No Pertinent History Cardiac: No Pertinent History Respiratory: No Pertinent History Gastrointestinal: No Pertinent History Genitourinary: No Pertinent History Musculoskeletal: Orthopedic Surgery Male Surgical History: No Pertinent History Other Surgical History: fracture left orbit 2018. COVID in february 21, 2021 on vent for 5 weeks - Social History Smoking Status: Never smoker Exposure to second hand smoke: No Drug Use: none Patient Lives Alone: No Significant Family History: no pertinent family hx - Nursing Vital Signs Nursing Vital Signs: Initial Vital Signs Temperature 98.6 F 11/22/21 18:00 Pulse Rate 99 H 11/22/21 18:00 Blood Pressure 137/97 11/22/21 18:00 O2 Sat by Pulse Oximetry 94 L 11/22/21 18:00 Pain Scale Pain Intensity [Posterior Back 10 ] Pain Intensity 8 - Physical Exam General Appearance: no apparent distress, alert Eye Exam: PERRL/EOMI Ears, Nose, Throat Exam: normal ENT inspection, pharynx normal Neck Exam: normal inspection, supple, full range of motion Respiratory Exam: normal breath sounds, wheezing Cardiovascular Exam: regular rate/rhythm, normal heart sounds Gastrointestinal Exam: soft, normal bowel sounds, No tenderness Back Exam: normal inspection, decreased range of motion, muscle spasm (Paraspinal and bilateral sacroiliac area), No vertebral tenderness Extremity Exam: normal inspection, normal range of motion Neurologic Exam: alert, oriented x 3, cooperative Skin Exam: normal color SpO2 Interpretation: normal SpO2: 94 O2 Delivery: Room Air Ordered Tests: Medication Summary Discontinued Medications Generic Name Dose Route Start Last Admin Trade Name Freq PRN Reason Stop Dose Admin Ketorolac Tromethamine 30 mg 11/22/21 18:32 11/22/21 18:42 Ketorolac Tromethamine 30 Mg/Ml Inj IM 11/22/21 18:33 30 mg STAT ONE Administration Ketorolac Tromethamine Confirm 11/22/21 18:38 Ketorolac Tromethamine 30 Mg/Ml Inj Administered 11/22/21 18:39 Dose 30 mg .ROUTE .STK-MED ONE Orphenadrine Citrate 60 mg 11/22/21 18:33 11/22/21 18:43 Orphenadrine Citrate 60 Mg/2 Ml Vial IM 11/22/21 18:34 60 mg STAT ONE Administration Orphenadrine Citrate Confirm 11/22/21 18:39 Orphenadrine Citrate 60 Mg/2 Ml Vial Administered 11/22/21 18:40 Dose 60 mg .ROUTE .STK-MED ONE - Progress Progress: improved Progress Note: 11/22/21 19:04 46-year-old with chronic back pain is evaluated for worsening back pain. Has no numbness tingling or weakness of lower extremities. No obvious midline tenderness. Negative neuro exam in lower extremities. Given Toradol and Norflex for symptomatic relief, on reevaluation patient is feeling better. I believe patient has acute on chronic back spasms and will place him on NSAIDs and muscle relaxants. Discussed signs symptoms of worsening needing return to ER which he seems understanding. Counseled pt/family regarding: diagnosis, need for follow-up - Departure Departure Disposition: Home Clinical Impression: Spasm of back muscles Condition: Stable Critical Care Time: No Referrals: CHULA SOSA NP [Primary Care Provider] - Follow Up with PCP/3 days Instructions: Low Back Pain (DC) Additional Instructions: Take Tylenol/ibuprofen as needed for pain. Follow-up with primary care for reevaluation. Return to ER for worsening back pain, numbness tingling weakness of lower extremities, loss of bowel or bladder control/perineal numbness etc. Prescriptions: Ibuprofen 600 mg PO Q6HPRN PRN 10 Days #20 tablet PRN Reason: Pain Methocarbamol [Robaxin] 500 mg PO TID 10 Days #30 tablet
[2021-11-22 19:40] VITALS: BP 117/71; PULSE 97; O2SAT 99
== END 2021-11-22 19:39 | disposition home or self-care (01) ==
LOC: ED 17:01
DX: M62.830 Muscle spasm of back (principal); M54.9 Dorsalgia, unspecified; Z79.899 Other long term (current) drug therapy; Z86.16 Personal history of COVID-19
CPT/HCPCS: 96372; 99283; J1885; J2360

== ENCOUNTER 2021-11-29 20:23 | Emergency (ER) | payer MEDICARE ==
[2021-11-29] MEDS ORDERED: TORAdol 30 mg Injection IV ONE (20:31)
[2021-11-29] MEDS ORDERED: Pepcid 20 MG VIAL IV ONE ×2 (20:31→20:56)
[2021-11-29] MEDS ORDERED: PROTONIX 40 MG IV IV ONE ×2 (20:31→20:56)
[2021-11-29] MEDS ORDERED: Zofran 4 MG/2 ML VIAL IV ONE (20:31)
[2021-11-29] MEDS ORDERED: Sodium Chloride 0.9% 1000 ML 1,000 ML IV STA (20:31)
--- NOTE | 2021-11-29 20:31 | ERPHSYRPT ---
- History of Present Illness Time Seen by Provider: 11/29/21 20:27 Historian: patient, EMS Exam Limitations: no limitations Physician History: PT has hx back pain for several months but nothing like this until getting worse recent weeks and celine today. No Trauma. MRI in October with disc bulge only. bilateral radicular radiation. But today abd is rigid and tender with also left flank tenderness. No Neuro deficits. Timing/Duration: day(s), week(s) Activities at Onset: none Quality: sharpness, stabbing Abdominal Pain Onset Location: generalized abdomen, flank Pain Radiation: flank Severity of Pain-Max: severe Severity of Pain-Current: severe Associated Symptoms: back Previous symptoms: recently seen, recently treated Allergies/Adverse Reactions: bee pollen Allergy (Intermediate, Verified 11/29/21 20:25) Swelling Home Medications: Sertraline HCl [Zoloft] 200 mg PO QAM 07/27/17 [History] Albuterol 8 gm Mdi Hfa [Ventolin Hfa MDI] 8 gm IH DAILY 02/21/21 [History] OLANZapine [Zyprexa] 20 mg PO QHS 02/21/21 [History] hydrOXYzine HCL [Hydroxyzine HCl] 50 mg PO TID 02/21/21 [History] Fluticasone/Umeclidin/Vilanter [Trelegy Ellipta 200-62.5-25] 1 inh PO DAILY 11/22/21 [History] PANTOPRAZOLE 40 mg Tablet [Protonix 40MG Tablet] 40 mg PO QAM 11/22/21 [History] amantadine HCL [Amantadine] 100 mg PO BID 11/22/21 [History] Hx Tetanus, Diphtheria Vaccination/Date Given: Yes Hx Influenza Vaccination/Date Given: No Hx Pneumococcal Vaccination/Date Given: No Travel Risk - Vaccine Status Have you recieved a Covid-19 vaccination: No - Review of Systems Constitutional: No Fever, No Chills Eyes: No Symptoms Ears, Nose, & Throat: No Symptoms Respiratory: No Cough, No Dyspnea Cardiac: No Chest Pain, No Edema, No Syncope Abdominal/Gastrointestinal: Abdominal Pain, No Nausea, No Vomiting, No Diarrhea Genitourinary Symptoms: No Dysuria Musculoskeletal: Back Pain, No Neck Pain, No Fall Skin: No Rash Neurological: No Dizziness, No Focal Weakness, No Sensory Changes Psychological: No Symptoms Endocrine: No Symptoms Hematologic/Lymphatic: No Symptoms Immunological/Allergic: No Symptoms All Other Systems: Reviewed and Negative - Past Medical History Pertinent Past Medical History: Yes Neurological History: Migraines ENT History: No Pertinent History Cardiac History: No Pertinent History Respiratory History: Other Endocrine Medical History: No Pertinent History Musculoskeletal History: Degenerative Disk Disease GI Medical History: GERD History: No Pertinent History Psycho-Social History: Anxiety, Depression, Other Male Reproductive Disorders: No Pertinent History Other Medical History: HAD COVID LAST YEAR AND CONTINUES TO HAVE SOME BREATHING ISSUES BUT STATES LUNGS ARE IMPROVING. ALSO HAD NERVE DAMAGE RIGHT AND WITH DECREASED SENSATION, STRENGTH AND PAIN BUT STATES NUMBNESS IS GONE. OTHER PMHX: GERD, SCHIZOPHRENIA, DYSTONIA, - Past Surgical History Past Surgical History: Yes Neuro Surgical History: No Pertinent History Cardiac: No Pertinent History Respiratory: No Pertinent History Gastrointestinal: No Pertinent History Genitourinary: No Pertinent History Musculoskeletal: Orthopedic Surgery Male Surgical History: No Pertinent History Other Surgical History: fracture left orbit 2017. COVID in february 21, 2021 on vent for 5 weeks - Social History Smoking Status: Never smoker Exposure to second hand smoke: No Drug Use: none Patient Lives Alone: No Significant Family History: no pertinent family hx - Nursing Vital Signs Nursing Vital Signs: Initial Vital Signs Temperature 97.9 F 11/29/21 20:26 Pulse Rate 102 H 11/29/21 20:26 Respiratory Rate 20 11/29/21 20:26 Blood Pressure 154/108 11/29/21 20:26 O2 Sat by Pulse Oximetry 94 L 11/29/21 20:26 Pain Scale Pain Intensity [] 10 Pain Intensity 7 - Physical Exam General Appearance: no apparent distress, alert Eye Exam: PERRL/EOMI, eyes nml inspection Ears, Nose, Throat Exam: normal ENT inspection, pharynx normal, moist mucous membranes Neck Exam: normal inspection, non-tender, supple, full range of motion Respiratory Exam: normal breath sounds, lungs clear, No respiratory distress Cardiovascular Exam: regular rate/rhythm, normal heart sounds Gastrointestinal/Abdomen Exam: soft, tenderness, distention, guarding, No mass Rectal Exam: deferred Back Exam: normal inspection, normal range of motion, No CVA tenderness, No vertebral tenderness Extremity Exam: normal inspection, normal range of motion, pelvis stable Neurologic Exam: alert, oriented x 3, cooperative, normal mood/affect, nml cerebellar function, sensation nml, No motor deficits Skin Exam: normal color, warm, dry SpO2 Interpretation: normal O2 Delivery: Room Air - Course Nursing assessment & vital signs reviewed: Yes EKG Interpreted by Me: Sinus Rhythm, NORMAL AXIS, NORMAL INTERVALS, NORMAL QRS, NORMAL ST-T - CT Exams Abdomen/Pelvis CT Interpretation: Tele-radiologist Report, No appendicitis, Other (splenomegally/ Vascular Calcifications, fatty liver) Ordered Tests: Active Orders 24 hr Category Date Time Status EKG-ER Only STAT Care 11/29/21 20:31 Active IV Insertion STAT Care 11/29/21 20:31 Active ABDOMEN AND PELVIS W/0 CONTRAS [CT] Stat Exams 11/29/21 20:31 Taken AMYLASE Stat Lab 11/29/21 21:07 Completed CBC W DIFF Stat Lab 11/29/21 21:07 Completed CMP Stat Lab 11/29/21 21:07 Completed LIPASE Stat Lab 11/29/21 21:07 Completed Lactic Acid Stat Lab 11/29/21 20:57 Completed TROPONIN Q4H Lab 11/29/21 21:07 Completed TROPONIN Q4H Lab 11/30/21 00:45 Ordered TROPONIN Q4H Lab 11/30/21 04:45 Ordered UA W/RFX CULTURE Stat Lab 11/29/21 22:24 Completed Medication Summary Discontinued Medications Generic Name Dose Route Start Last Admin Trade Name Ronaldoq PRN Reason Stop Dose Admin Diphenhydramine HCl 25 mg 11/29/21 20:34 11/29/21 21:19 Diphenhydramine Hcl 50 Mg/Ml Vial IV 11/29/21 20:35 25 mg STAT ONE Administration Diphenhydramine HCl Confirm 11/29/21 20:56 Diphenhydramine Hcl 50 Mg/Ml Vial Administered 11/29/21 20:57 Dose 50 mg .ROUTE .STK-MED ONE Famotidine 20 mg 11/29/21 20:31 11/29/21 21:07 Famotidine 20 Mg/1 Vial IV 11/29/21 20:32 20 mg STAT ONE Administration Famotidine Confirm 11/29/21 20:56 Famotidine 20 Mg/1 Vial Administered 11/29/21 20:57 Dose 20 mg IV .STK-MED ONE Sodium Chloride 1,000 mls @ 999 mls/hr 11/29/21 20:31 11/29/21 21:04 Sodium Chloride 0.9% 1000 Ml IV 11/29/21 21:31 999 mls/hr .Q1H1M STA Administration Sodium Chloride Confirm 11/29/21 20:56 Sodium Chloride 0.9% 1000 Ml Administered 11/29/21 20:57 Dose 1,000 mls @ ud .ROUTE .STK-MED ONE Ketorolac Tromethamine 30 mg 11/29/21 20:31 11/29/21 21:19 Ketorolac Tromethamine 30 Mg/Ml Inj IV 11/29/21 20:32 30 mg STAT ONE Administration Ketorolac Tromethamine Confirm 11/29/21 20:55 Ketorolac Tromethamine 30 Mg/Ml Inj Administered 11/29/21 20:56 Dose 30 mg .ROUTE .STK-MED ONE Ondansetron HCl 4 mg 11/29/21 20:31 11/29/21 21:04 Ondansetron Hcl 4 Mg/2 Ml Vial IV 11/29/21 20:32 4 mg STAT ONE Administration Ondansetron HCl Confirm 11/29/21 20:55 Ondansetron Hcl 4 Mg/2 Ml Vial Administered 11/29/21 20:56 Dose 4 mg .ROUTE .STK-MED ONE Orphenadrine Citrate 60 mg 11/29/21 20:33 11/29/21 21:02 Orphenadrine Citrate 60 Mg/2 Ml Vial IM 11/29/21 20:34 60 mg STAT ONE Administration Orphenadrine Citrate Confirm 11/29/21 20:56 Orphenadrine Citrate 60 Mg/2 Ml Vial Administered 11/29/21 20:57 Dose 60 mg .ROUTE .STK-MED ONE Pantoprazole Sodium 40 mg 11/29/21 20:31 11/29/21 21:06 Pantoprazole 40 Mg Vial IV 11/29/21 20:32 40 mg STAT ONE Administration Pantoprazole Sodium Confirm 11/29/21 20:56 Pantoprazole 40 Mg Vial Administered 11/29/21 20:57 Dose 40 mg IV .STK-MED ONE Tizanidine HCl 4 mg 11/29/21 20:34 11/29/21 21:26 Tizanidine Hcl 4 Mg Tablet PO 11/29/21 20:35 4 mg STAT ONE Administration Lab/Rad Data: Laboratory Result Diagrams 11/29/21 21:07 11/29/21 21:07 Laboratory Results 11/29/21 11/29/21 11/29/21 Range/Units 22:24 21:07 21:07 WBC (4.0-10.5) x10^3/uL RBC (4.1-5.6) x10^6/uL Hgb (12.5-18.0) g/dL Hct (42-50) % MCV (78-100) fL MCH (26-32) pg MCHC (32-36) g/dL RDW (11.5-14.0) % Plt Count (150-450) x10^3/uL MPV (7.5-11.0) fL Gran % (36.0-66.0) % Immature Gran % (Auto) (0.00-0.4) % Nucleat RBC Rel Count (0.00-0.1) % Eos # (Auto) (0-0.5) x10^3/uL Immature Gran # (Auto) (0.00-0.03) x10^3u/L Absolute Lymphs (auto) (1.0-4.6) x10^3/uL Absolute Monos (auto) (0.0-1.3) x10^3/uL Absolute Nucleated RBC (0.00-0.01) x10^3u/L Lymphocytes % (24.0-44.0) % Monocytes % (0.0-12.0) % Eosinophils % (0.00-5.0) % Basophils % (0.0-0.4) % Absolute Granulocytes (1.4-6.9) x10^3/uL Basophils # (0-0.4) x10^3/uL Sodium 137 (137-145) mmol/L Potassium 4.1 (3.5-5.1) mmol/L Chloride 104 (98-107) mmol/L Carbon Dioxide 27 (22-30) mmol/L Anion Gap 10.9 (5-15) MEQ/L BUN 12 (9-20) mg/dL Creatinine 0.83 (0.66-1.25) mg/dL Estimated GFR > 60.0 ML/MIN Glucose 119 H (74-106) mg/dL Lactic Acid (0.4-2.0) Calcium 9.0 (8.4-10.2) mg/dL Total Bilirubin 0.40 (0.2-1.3) mg/dL AST 26 (17-59) U/L ALT 29 (0-50) U/L Alkaline Phosphatase 126 (38-126) U/L Troponin I < 0.012 (0.000-0.034) ng/mL Serum Total Protein 8.3 H (6.3-8.2) g/dL Albumin 3.9 (3.5-5.0) g/dL Amylase 66 (30-110) U/L Lipase 109 (23-300) U/L Urinalys Dipstick Clnc MAIN LAB Urine Color YELLOW (YELLOW) Urine Appearance CLEAR (CLEAR) Urine pH 5.5 (5-6) Ur Specific [place] >=1.030 (1.005-1.025) POC Urine Protein Conf NEGATIVE (Negative) Urine Ketones NEGATIVE (NEGATIVE) Urine Nitrite NEGATIVE (NEGATIVE) Urine Bilirubin NEGATIVE (NEGATIVE) Urine Urobilinogen 0.2 (0-1) mg/dL Urine Leukocytes NEGATIVE (NEGATIVE) Urine WBC (Auto) 3-5 (0-5) /HPF Urine RBC (Auto) NONE (0-2) /HPF U Epithel Cells (Auto) NONE (FEW) /HPF Urine Bacteria (Auto) NONE (NEGATIVE) /HPF Urine RBC NEGATIVE (0-5) Volodymyr/ul Urine Mucus (Auto) SLIGHT (NEGATIVE) /HPF Ur Culture Indicated? NO Urine Glucose NEGATIVE (NEGATIVE) mg/dL 11/29/21 11/29/21 Range/Units 21:07 20:57 WBC 9.4 (4.0-10.5) x10^3/uL RBC 4.64 (4.1-5.6) x10^6/uL Hgb 12.7 (12.5-18.0) g/dL Hct 38.6 L (42-50) % MCV 83.2 (78-100) fL MCH 27.4 (26-32) pg MCHC 32.9 (32-36) g/dL RDW 15.5 H (11.5-14.0) % Plt Count 269 (150-450) x10^3/uL MPV 8.9 (7.5-11.0) fL Gran % 73.9 H (36.0-66.0) % Immature Gran % (Auto) 0.2 (0.00-0.4) % Nucleat RBC Rel Count 0.0 (0.00-0.1) % Eos # (Auto) 0.12 (0-0.5) x10^3/uL Immature Gran # (Auto) 0.02 (0.00-0.03) x10^3u/L Absolute Lymphs (auto) 1.61 (1.0-4.6) x10^3/uL Absolute Monos (auto) 0.66 (0.0-1.3) x10^3/uL Absolute Nucleated RBC 0.00 (0.00-0.01) x10^3u/L Lymphocytes % 17.2 L (24.0-44.0) % Monocytes % 7.0 (0.0-12.0) % Eosinophils % 1.3 (0.00-5.0) % Basophils % 0.4 (0.0-0.4) % Absolute Granulocytes 6.92 H (1.4-6.9) x10^3/uL Basophils # 0.04 (0-0.4) x10^3/uL Sodium (137-145) mmol/L Potassium (3.5-5.1) mmol/L Chloride (98-107) mmol/L Carbon Dioxide (22-30) mmol/L Anion Gap (5-15) MEQ/L BUN (9-20) mg/dL Creatinine (0.66-1.25) mg/dL Estimated GFR ML/MIN Glucose (74-106) mg/dL Lactic Acid 1.2 (0.4-2.0) Calcium (8.4-10.2) mg/dL Total Bilirubin (0.2-1.3) mg/dL AST (17-59) U/L ALT (0-50) U/L Alkaline Phosphatase (38-126) U/L Troponin I (0.000-0.034) ng/mL Serum Total Protein (6.3-8.2) g/dL Albumin (3.5-5.0) g/dL Amylase (30-110) U/L Lipase (23-300) U/L Urinalys Dipstick Clnc Urine Color (YELLOW) Urine Appearance (CLEAR) Urine pH (5-6) Ur Specific [place] (1.005-1.025) POC Urine Protein Conf (Negative) Urine Ketones (NEGATIVE) Urine Nitrite (NEGATIVE) Urine Bilirubin (NEGATIVE) Urine Urobilinogen (0-1) mg/dL Urine Leukocytes (NEGATIVE) Urine WBC (Auto) (0-5) /HPF Urine RBC (Auto) (0-2) /HPF U Epithel Cells (Auto) (FEW) /HPF Urine Bacteria (Auto) (NEGATIVE) /HPF Urine RBC (0-5) Volodymyr/ul Urine Mucus (Auto) (NEGATIVE) /HPF Ur Culture Indicated? Urine Glucose (NEGATIVE) mg/dL - Progress Progress: improved, re-examined Progress Note: 11/29/21 22:52 symptoms improved after meds. 11/30/21 00:09 Pt continues to improve. Discussed pulse of steroids and f/u for results with Neuro and PMD and need to f/u bladder symptoms as well and pt agrees. He will monitor mental status also with psych in case of effect by steroids. Counseled pt/family regarding: lab results, diagnosis, need for follow-up, rad results - Departure Departure Disposition: Home Clinical Impression: Muscle spasm, Spasm of back muscles, Splenomegaly, Fatty liver, Vascular calcium ASVD Condition: Good Critical Care Time: No Referrals: CHULA SOSA NP [Primary Care Provider] - Follow up/PCP as directed Instructions: Degenerative Disc Disease (DC) Additional Instructions: follow-up Blood Pressure with PMD. Follow-up with your DrCarlos and monitor steroid response. Return meantime if not improving or additional concerns, since there may be additional conditions evolving that are not yet detected. . Prescriptions: Tizanidine HCl 4 mg [Zanaflex 4 MG] 4 mg PO Q6HPRN PRN #20 tablet PRN Reason: Muscle Spasms Methylprednisolone Packet [Medrol Dosepack] 4 mg PO UD #30 packet
[2021-11-29] MEDS ORDERED: Norflex 60 MG/2 ML IM ONE (20:33)
[2021-11-29] MEDS ORDERED: BENADRYL 50 MG/ML IV ONE (20:34)
[2021-11-29] MEDS ORDERED: Zanaflex 4 MG PO ONE (20:34)
[2021-11-29] MEDS ORDERED: Zofran 4 MG/2 ML VIAL ONE (20:55)
[2021-11-29] MEDS ORDERED: TORAdol 30 mg Injection ONE (20:55)
[2021-11-29] MEDS ORDERED: Norflex 60 MG/2 ML ONE (20:56)
[2021-11-29] MEDS ORDERED: Sodium Chloride 0.9% 1000 ML 1,000 ML ONE (20:56)
[2021-11-29] MEDS ORDERED: BENADRYL 50 MG/ML ONE (20:56)
[2021-11-29 21:09] LABS: Absolute Neutrophil Ct (ANC) 6.92 x10^3/uL (1.4-6.9); Basophil (Absolute #) 0.04 x10^3/uL (0-0.4); Eosinophil % 1.3 % (0.00-5.0); Eosinophil (Absolute #) 0.12 x10^3/uL (0-0.5); Hematocrit 38.6 % (42-50); Hemoglobin 12.7 g/dL (12.5-18.0); Lymphocyte (Absolute #) 1.61 x10^3/uL (1.0-4.6); Lymphocytes % 17.2 % (24.0-44.0); Mean Cell Volume 83.2 fL (78-100); Mean Corpuscular Hemoglobin 27.4 pg (26-32); Mean Corpuscular Hgb Concent. 32.9 g/dL (32-36); Mean Platelet Volume 8.9 fL (7.5-11.0); Monocyte (Absolute #) 0.66 x10^3/uL (0.0-1.3); Neutrophil % 73.9 % (36.0-66.0); Platelet Count 269 x10^3/uL (150-450); Red Blood Count 4.64 x10^6/uL (4.1-5.6); Red Cell Distribution Width 15.5 % (11.5-14.0); White Blood Count 9.4 x10^3/uL (4.0-10.5)
[2021-11-29 21:23] LABS: ALBUMIN 3.9 g/dL (3.5-5.0); ALKALINE PHOSPHATASE 126 U/L (38-126); AMYLASE 66 U/L (30-110); ANION GAP 10.9 MEQ/L (5-15); BLOOD UREA NITROGEN 12 mg/dL (9-20); CHLORIDE 104 mmol/L (98-107); Carbon Dioxide 27 mmol/L (22-30); Creatinine 1 0.83 mg/dL (0.66-1.25); EST GLOMERULAR FILTRATION RATE > 60.0 ML/MIN; Glucose 119 mg/dL (74-106); LIPASE 109 U/L (23-300); Potassium 4.1 mmol/L (3.5-5.1); SGOT/AST 26 U/L (17-59); SGPT/ALT 29 U/L (0-50); SODIUM 137 mmol/L (137-145); Total Protein 8.3 g/dL (6.3-8.2)
[2021-11-29 23:43] LABS: Appearance CLEAR (CLEAR); Bilirubin NEGATIVE (NEGATIVE); Glucose NEGATIVE (NEGATIVE); Ketones NEGATIVE (NEGATIVE); Ph 5.5 (5-6); RBC NEGATIVE Ery/ul (0-5); Specific Gravity >=1.030 (1.005-1.025)
[2021-11-29 23:44] LABS: Dipstick done @ ? MAIN LAB; Nitrite NEGATIVE (NEGATIVE); Protein,Urine Dip NEGATIVE (Negative); Urobilinogen 0.2 mg/dL (0-1)
[2021-11-29 23:54] LABS: Mucus SLIGHT /HPF (NEGATIVE)
[2021-11-29 23:55] LABS: Urine Cultured Indicated? NO
[2021-11-30] MEDS ORDERED: DELTASONE 20 MG PO ONE (00:20)
[2021-11-30] MEDS ORDERED: DELTASONE 20 MG ONE (00:27)
[2021-11-30] MEDS ORDERED: Zanaflex 4 MG PO ONE (00:35)
[2021-11-30 01:50] VITALS: BP 119/75; PULSE 84; O2SAT 98
--- NOTE | 2021-11-30 08:13 | XRAY ---
Indication: Abdomen/left flank/back pain. Multiple contiguous axial images obtained through the abdomen and pelvis without contrast. Comparison: May 17, 2021 Lung bases now demonstrates right base subsegmental atelectasis. No infiltrate or effusion. Heart not enlarged. Stomach is distended with food/fluid. Noncontrasted stomach and bowel loops appear nonobstructed with normal appendix. Again mild diffuse scattered colonic fecal debris greatest in the right hemicolon. No free fluid/air. Again 23 cm fatty hepatomegaly and 14.2 cm splenomegaly. Gallbladder contracted without gallstones. Remaining liver, gallbladder, pancreas, spleen, adrenal glands, kidneys, ureters, bladder, and aorta are unremarkable for noncontrast exam. Osseous structures intact again with minimal degenerative changes throughout the spine and both hips. Impression: 1. Again mild fecal stasis, fatty hepatomegaly, and splenomegaly. 2. Remaining CT abdomen/pelvis without contrast exam is again negative. Comment: Preliminary interpretation made by C. No critical discrepancy.
== END 2021-11-30 00:55 | disposition home or self-care (01) ==
LOC: ED 20:23
DX: M62.830 Muscle spasm of back (principal); R16.1 Splenomegaly, not elsewhere classified; K76.0 Fatty (change of) liver, not elsewhere classified; I70.90 Unspecified atherosclerosis; R10.84 Generalized abdominal pain; M54.9 Dorsalgia, unspecified; Z86.16 Personal history of COVID-19; Z79.899 Other long term (current) drug therapy; Z79.52 Long term (current) use of systemic steroids; Z28.310 Unvaccinated for COVID-19
CPT/HCPCS: 36000; 36415; 74176; 80053; 81015; 82150; 83605; 83690; 84484; 85025; 93005; 96360; 96372; 96374; 96375; 99284; J1200; J1885; J2360; J2405; A9270-GY

== ENCOUNTER 2021-12-06 19:25 | Emergency (ER) | payer BC, MEDICARE ==
[2021-12-06 19:51] VITALS: BP 130/111; PULSE 89; O2SAT 96
[2021-12-06] MEDS ORDERED: TORAdol 30 mg Injection IV ONE (20:05)
[2021-12-06] MEDS ORDERED: Norflex 60 MG/2 ML IV ONE (20:06)
--- NOTE | 2021-12-06 20:52 | ERPHSYRPT ---
- History of Present Illness Time Seen by Provider: 12/06/21 19:28 Source: patient Exam Limitations: no limitations Patient Subjective Stated Complaint: Left flank pain that radiates to lower back. Rated 10/10. Described as cramping and stabbing. Pain began in March 2021 and worsened over the past two weeks. Patient stated that this is his 3rd visit to ED in the past 2 weeks. Triage Nursing Assessment: Pt ambulated from waiting area. Pt occassionally grimaces and grasps left flank area. Pt A&O X 3. Skin color WNL for race. Pt reports having chronic back pain since 2020 when he was on the ventilator for 5 weeks. He reports that pain has worsened over the past two weeks, and he is unable to find anything to ease the pain. Physician History: 46-year-old male with history of chronic back pain since he has a COVID-19 last year and was on the ventilator for quite some time. Patient has bulging disc. Patient reports having worsening of pain for the last couple of weeks and for the last few days severe sharp throbbing pain in left flank with some radiation to the left lower quadrant, rates 10/10 intensity, more with movements and denies any relieving factors. Denies any urinary symptoms. No nausea or vomiting or diarrhea reported. Reports having chronic back pain but this is a little different than usual and more in the flank area. Denies any midline back pain. No numbness tingling weakness of lower extremity, no loss of bowel or bladder control. Timing/Duration: day(s) (2), constant, worse Method of Injury: unknown Quality: sharp, stabbing Back Pain Location: paraspinous muscles Severity of Pain-Max: severe Severity of Pain-Current: severe Modifying Factors: Worsens With: movement Associated Symptoms: lower back pain, muscle spasms, No fever, No urinary incontinence, No loss of bowel control, No constipation, No problems urinating, No numbness in legs/feet, No sensory/motor loss, No tingling in legs/feet Previous symptoms: different symptoms Allergies/Adverse Reactions: bee pollen Allergy (Intermediate, Verified 12/06/21 19:38) Swelling Home Medications: Sertraline HCl [Zoloft] 200 mg PO QAM 07/27/17 [History] Albuterol 8 gm Mdi Hfa [Ventolin Hfa MDI] 8 gm IH DAILY 02/21/21 [History] OLANZapine [Zyprexa] 20 mg PO QHS 02/21/21 [History] hydrOXYzine HCL [Hydroxyzine HCl] 50 mg PO TID 02/21/21 [History] Fluticasone/Umeclidin/Vilanter [Trelegy Ellipta 200-62.5-25] 1 inh PO DAILY [History] PANTOPRAZOLE 40 mg Tablet [Protonix 40MG Tablet] 40 mg PO QAM 11/22/21 [History] amantadine HCL [Amantadine] 100 mg PO BID 11/22/21 [History] Hx Tetanus, Diphtheria Vaccination/Date Given: Yes Hx Influenza Vaccination/Date Given: No Hx Pneumococcal Vaccination/Date Given: No Travel Risk - International Travel Have you traveled outside of the country in past 3 weeks: No - Coronavirus Screening Are you exhibiting any of the following symptoms?: No Close contact with a COVID-19 positive Pt in past 14-21 Days: No - Vaccine Status Have you recieved a Covid-19 vaccination: No - Review of Systems Constitutional: No Symptoms Eyes: No Symptoms Ears, Nose, & Throat: No Symptoms Respiratory: No Symptoms Cardiac: No Symptoms Abdominal/Gastrointestinal: Abdominal Pain Genitourinary Symptoms: No Symptoms Musculoskeletal: Back Pain Skin: No Symptoms Neurological: No Symptoms Endocrine: No Symptoms Hematologic/Lymphatic: No Symptoms - Past Medical History Pertinent Past Medical History: Yes Neurological History: Migraines ENT History: No Pertinent History Cardiac History: No Pertinent History Respiratory History: Other Endocrine Medical History: No Pertinent History Musculoskeletal History: Degenerative Disk Disease GI Medical History: GERD History: No Pertinent History Psycho-Social History: Anxiety, Depression, Other Male Reproductive Disorders: No Pertinent History Other Medical History: HAD COVID LAST YEAR AND CONTINUES TO HAVE SOME BREATHING ISSUES BUT STATES LUNGS ARE IMPROVING. ALSO HAD NERVE DAMAGE RIGHT AND WITH DECREASED SENSATION, STRENGTH AND PAIN BUT STATES NUMBNESS IS GONE. OTHER PMHX: GERD, SCHIZOPHRENIA, DYSTONIA, - Past Surgical History Past Surgical History: Yes Neuro Surgical History: No Pertinent History Cardiac: No Pertinent History Respiratory: No Pertinent History Gastrointestinal: No Pertinent History Genitourinary: No Pertinent History Musculoskeletal: Orthopedic Surgery Male Surgical History: No Pertinent History Other Surgical History: fracture left orbit 2018. COVID in february 21, 2021 on vent for 5 weeks - Social History Smoking Status: Never smoker Exposure to second hand smoke: No Drug Use: none Patient Lives Alone: No Significant Family History: no pertinent family hx - Nursing Vital Signs Nursing Vital Signs: Initial Vital Signs Temperature 97.9 F 12/06/21 19:39 Pulse Rate 89 12/06/21 19:39 Respiratory Rate 20 12/06/21 19:39 Blood Pressure 130/111 12/06/21 19:39 O2 Sat by Pulse Oximetry 96 12/06/21 19:39 Pain Scale Pain Intensity [Left Flank] 10 Pain Intensity 8 - Physical Exam General Appearance: no apparent distress Eye Exam: PERRL/EOMI Ears, Nose, Throat Exam: normal ENT inspection Neck Exam: normal inspection, full range of motion Respiratory Exam: normal breath sounds, lungs clear Cardiovascular Exam: regular rate/rhythm, normal heart sounds Gastrointestinal Exam: soft, normal bowel sounds, tenderness (Left flank) Back Exam: normal inspection, CVA tenderness, muscle spasm (Left paraspinal lumbar), No vertebral tenderness Extremity Exam: normal inspection, normal range of motion Neurologic Exam: alert, oriented x 3, cooperative Skin Exam: normal color SpO2 Interpretation: normal SpO2: 96 O2 Delivery: Room Air Ordered Tests: Active Orders 24 hr Category Date Time Status ABDOMEN AND PELVIS W/0 CONTRAS [CT] Stat Exams 12/06/21 20:06 Completed CBC W DIFF Stat Lab 12/06/21 21:44 Completed CMP Stat Lab 12/06/21 21:44 Completed LIPASE Stat Lab 12/06/21 21:44 Completed UA W/RFX CULTURE Stat Lab 12/06/21 22:26 Completed Medication Summary Discontinued Medications Generic Name Dose Route Start Last Admin Trade Name Henrietta PRN Reason Stop Dose Admin Ketorolac Tromethamine 30 mg 12/06/21 20:05 12/06/21 21:46 Ketorolac Tromethamine 30 Mg/Ml Inj IV 12/06/21 20:06 30 mg STAT ONE Administration Ketorolac Tromethamine Confirm 12/06/21 21:43 Ketorolac Tromethamine 30 Mg/Ml Inj Administered 12/06/21 21:44 Dose 30 mg .ROUTE .STK-MED ONE Morphine Sulfate 4 mg 12/06/21 22:28 12/06/21 22:42 Morphine Sulfate 4 Mg/Ml Injection IV 12/06/21 22:29 4 mg STAT ONE Administration Morphine Sulfate Confirm 12/06/21 22:40 Morphine Sulfate 4 Mg/Ml Injection Administered 12/06/21 22:41 Dose 4 mg .ROUTE .STK-MED ONE Ondansetron HCl 4 mg 12/06/21 22:28 12/06/21 22:42 Ondansetron Hcl 4 Mg/2 Ml Vial IV 12/06/21 22:29 4 mg STAT ONE Administration Ondansetron HCl Confirm 12/06/21 22:40 Ondansetron Hcl 4 Mg/2 Ml Vial Administered 12/06/21 22:41 Dose 4 mg .ROUTE .STK-MED ONE Orphenadrine Citrate 60 mg 12/06/21 20:06 12/06/21 21:46 Orphenadrine Citrate 60 Mg/2 Ml Vial IV 12/06/21 20:07 60 mg STAT ONE Administration Orphenadrine Citrate Confirm 12/06/21 21:44 Orphenadrine Citrate 60 Mg/2 Ml Vial Administered 12/06/21 21:45 Dose 60 mg .ROUTE .STK-MED ONE Lab/Rad Data: Laboratory Result Diagrams 12/06/21 21:44 12/06/21 21:44 Laboratory Results 12/06/21 12/06/21 12/06/21 Range/Units 22:26 21:44 21:44 WBC 10.3 (4.0-10.5) x10^3/uL RBC 4.77 (4.1-5.6) x10^6/uL Hgb 13.0 (12.5-18.0) g/dL Hct 40.0 L (42-50) % MCV 83.9 (78-100) fL MCH 27.3 (26-32) pg MCHC 32.5 (32-36) g/dL RDW 14.7 H (11.5-14.0) % Plt Count 306 (150-450) x10^3/uL MPV 8.6 (7.5-11.0) fL Gran % 73.2 H (36.0-66.0) % Immature Gran % (Auto) 0.4 (0.00-0.4) % Nucleat RBC Rel Count 0.0 (0.00-0.1) % Eos # (Auto) 0.19 (0-0.5) x10^3/uL Immature Gran # (Auto) 0.04 H (0.00-0.03) x10^3u/L Absolute Lymphs (auto) 1.67 (1.0-4.6) x10^3/uL Absolute Monos (auto) 0.83 (0.0-1.3) x10^3/uL Absolute Nucleated RBC 0.00 (0.00-0.01) x10^3u/L Lymphocytes % 16.2 L (24.0-44.0) % Monocytes % 8.0 (0.0-12.0) % Eosinophils % 1.8 (0.00-5.0) % Basophils % 0.4 (0.0-0.4) % Absolute Granulocytes 7.55 H (1.4-6.9) x10^3/uL Basophils # 0.04 (0-0.4) x10^3/uL Sodium 136 L (137-145) mmol/L Potassium 4.0 (3.5-5.1) mmol/L Chloride 100 (98-107) mmol/L Carbon Dioxide 26 (22-30) mmol/L Anion Gap 13.9 (5-15) MEQ/L BUN 20 (9-20) mg/dL Creatinine 0.87 (0.66-1.25) mg/dL Estimated GFR > 60.0 ML/MIN Glucose 122 H (74-106) mg/dL Calcium 8.7 (8.4-10.2) mg/dL Total Bilirubin 0.30 (0.2-1.3) mg/dL AST 28 (17-59) U/L ALT 32 (0-50) U/L Alkaline Phosphatase 120 (38-126) U/L Serum Total Protein 8.2 (6.3-8.2) g/dL Albumin 4.0 (3.5-5.0) g/dL Lipase 133 (23-300) U/L Urinalys Dipstick Clnc MAIN LAB Urine Color YELLOW (YELLOW) Urine Appearance CLEAR (CLEAR) Urine pH 6.5 (5-6) Ur Specific Roy 1.025 (1.005-1.025) POC Urine Protein Conf NEGATIVE (Negative) Urine Ketones NEGATIVE (NEGATIVE) Urine Nitrite NEGATIVE (NEGATIVE) Urine Bilirubin NEGATIVE (NEGATIVE) Urine Urobilinogen 0.2 (0-1) mg/dL Urine Leukocytes NEGATIVE (NEGATIVE) Urine WBC (Auto) 0-2 (0-5) /HPF Urine RBC (Auto) 0-2 (0-2) /HPF U Hyaline Cast (Auto) 0-2 (0-2) /LPF U Epithel Cells (Auto) NONE (FEW) /HPF Urine Bacteria (Auto) NONE SEEN (NEGATIVE) /HPF Urine RBC NEGATIVE (0-5) Volodymyr/ul Urine Sperm (Auto) PRESENT (NEGATIVE) /HPF Ur Culture Indicated? NO Urine Glucose NEGATIVE (NEGATIVE) mg/dL - Progress Progress: improved, pain not gone completely Progress Note: 12/06/21 22:57 Given symptomatic treatment for pain which did help but not completely resolved and given a dose of morphine. Patient is feeling better on reevaluation. Acute abdomen work-up negative including CT. I believe this pain is seen chronic back muscle spasms. Recommended continue with NSAIDs and muscle relaxant, outpatient follow-up. Counseled pt/family regarding: lab results, diagnosis, need for follow-up, rad results - Departure Departure Disposition: Home Clinical Impression: Spasm of back muscles Condition: Stable Critical Care Time: No Referrals: CHULA SOSA NP [Primary Care Provider] - Follow Up with PCP/3 days Instructions: Low Back Pain (DC) Additional Instructions: Take ibuprofen and muscle relaxants which you have at home as recommended. Follow-up with primary care and pain management for reevaluation. Return to ER for worsening back pain, numbness tingling weakness of lower extremities/loss of bowel or bladder control.
[2021-12-06] MEDS ORDERED: TORAdol 30 mg Injection ONE (21:43)
[2021-12-06] MEDS ORDERED: Norflex 60 MG/2 ML ONE (21:44)
[2021-12-06 21:46] LABS: Absolute Neutrophil Ct (ANC) 7.55 x10^3/uL (1.4-6.9); Basophil (Absolute #) 0.04 x10^3/uL (0-0.4); Eosinophil % 1.8 % (0.00-5.0); Eosinophil (Absolute #) 0.19 x10^3/uL (0-0.5); Lymphocyte (Absolute #) 1.67 x10^3/uL (1.0-4.6); Lymphocytes % 16.2 % (24.0-44.0); Mean Cell Volume 83.9 fL (78-100); Mean Corpuscular Hemoglobin 27.3 pg (26-32); Mean Corpuscular Hgb Concent. 32.5 g/dL (32-36); Mean Platelet Volume 8.6 fL (7.5-11.0); Monocyte (Absolute #) 0.83 x10^3/uL (0.0-1.3); Neutrophil % 73.2 % (36.0-66.0); Platelet Count 306 x10^3/uL (150-450); Red Blood Count 4.77 x10^6/uL (4.1-5.6); Red Cell Distribution Width 14.7 % (11.5-14.0); White Blood Count 10.3 x10^3/uL (4.0-10.5)
--- NOTE | 2021-12-06 21:59 | XRAY ---
Indication: Left flank pain 3 weeks. Multiple contiguous axial images obtained through the abdomen and pelvis without contrast. Comparison: November 29, 2021 Lung bases again demonstrates right basilar subsegmental atelectasis/scarring. No infiltrate or effusion. Heart not enlarged. Stomach again distended with food/fluid. Noncontrasted stomach and bowel loops are nonobstructed again with normal appendix. There remains mild diffuse scattered colonic fecal debris throughout more than before. No free fluid/air. Again fatty hepatomegaly and splenomegaly. Remaining liver, gallbladder, pancreas, spleen, adrenal glands, kidneys, ureters, bladder, and aorta are unremarkable for noncontrast exam. Impression: No change compared to CT 7 days ago again demonstrating fecal stasis, fatty hepatomegaly, and splenomegaly. Comment: Preliminary interpretation made by [facility]. No critical discrepancy.
[2021-12-06 22:06] LABS: ALKALINE PHOSPHATASE 120 U/L (38-126); ANION GAP 13.9 MEQ/L (5-15); BLOOD UREA NITROGEN 20 mg/dL (9-20); CHLORIDE 100 mmol/L (98-107); Calcium 8.7 mg/dL (8.4-10.2); Carbon Dioxide 26 mmol/L (22-30); Creatinine 1 0.87 mg/dL (0.66-1.25); EST GLOMERULAR FILTRATION RATE > 60.0 ML/MIN; Glucose 122 mg/dL (74-106); LIPASE 133 U/L (23-300); SGOT/AST 28 U/L (17-59); SGPT/ALT 32 U/L (0-50); SODIUM 136 mmol/L (137-145); Total Protein 8.2 g/dL (6.3-8.2)
[2021-12-06] MEDS ORDERED: MORPHINE SULFATE 4 MG INJ IV ONE (22:28)
[2021-12-06] MEDS ORDERED: Zofran 4 MG/2 ML VIAL IV ONE (22:28)
[2021-12-06] MEDS ORDERED: Zofran 4 MG/2 ML VIAL ONE (22:40)
[2021-12-06] MEDS ORDERED: MORPHINE SULFATE 4 MG INJ ONE (22:40)
[2021-12-06 22:47] LABS: Appearance CLEAR (CLEAR); Bilirubin NEGATIVE (NEGATIVE); Dipstick done @ ? MAIN LAB; Glucose NEGATIVE (NEGATIVE); Hyaline Casts 0-2 /LPF (0-2); Ketones NEGATIVE (NEGATIVE); Nitrite NEGATIVE (NEGATIVE); Ph 6.5 (5-6); Protein,Urine Dip NEGATIVE (Negative); RBC 0-2 /HPF (0-2); RBC NEGATIVE Ery/ul (0-5); Specific Gravity 1.025 (1.005-1.025); Sperm PRESENT /HPF (NEGATIVE); Urobilinogen 0.2 mg/dL (0-1); WBC 0-2 /HPF (0-5)
[2021-12-06 22:48] LABS: Bacteria NONE SEEN /HPF (NEGATIVE); Urine Cultured Indicated? NO
== END 2021-12-06 23:13 | disposition home or self-care (01) ==
LOC: ED 19:25
DX: M62.830 Muscle spasm of back (principal); R10.9 Unspecified abdominal pain; M54.50 Low back pain, unspecified; Z86.16 Personal history of COVID-19; Z79.899 Other long term (current) drug therapy; Z28.310 Unvaccinated for COVID-19
CPT/HCPCS: 36415; 74176; 80053; 81015; 83690; 85025; 96374; 96375; 99284; J1885; J2270; J2360; J2405

== ENCOUNTER 2021-12-17 14:21 | Day surgery (SDC) | payer BC, MEDICARE ==
[2021-12-17] MEDS ORDERED: Depo-Medrol 40 MG/ML IM ONE (14:22)
[2021-12-17] MEDS ORDERED: BUPIVACAINE 0.5% VIAL IJ ONE (14:22)
[2021-12-17] MEDS ORDERED: Lactated Ringers 1,000 ML IV ONE (15:21)
[2021-12-17] MEDS ORDERED: DIPRIVAN 200 MG/20 ML IV ONE (15:51)
--- NOTE | 2021-12-17 16:47 | XRAY ---
Indication: Bilateral L4-S1 MBB. Intraoperative fluoroscopy provided for 11 seconds. Single digital spot image submitted for interpretation demonstrates posterior needle tips projecting over the expected left and right L4-S1 nerve roots. Correlate with intraoperative findings/report.
--- NOTE | 2021-12-17 16:53 | XRAY ---
11 seconds of fluoroscopy was used in surgery for a bilateral L4-S1 MBB.
== END 2021-12-17 16:20 | disposition home or self-care (01) ==
LOC: SDC-PAIN 14:21
PROVIDERS: ATTEND Psychiatry & Neurology Pain Medicine
DX: M47.816 Spondylosis without myelopathy or radiculopathy, lumbar region (principal); Z79.899 Other long term (current) drug therapy
CPT/HCPCS: 64493; 64494; 72020; 77002; J1030; J2704

== ENCOUNTER 2022-01-21 12:18 | Day surgery (SDC) | payer BC, MEDICARE ==
[2022-01-21] MEDS ORDERED: Depo-Medrol 40 MG/ML IM ONE (12:19)
[2022-01-21] MEDS ORDERED: Marcaine Mpf 0.5% Vial 30 Ml IJ ONE (12:19)
[2022-01-21] MEDS ORDERED: DIPRIVAN 200 MG/20 ML IV ONE (14:35)
--- NOTE | 2022-01-21 16:50 | XRAY ---
Indication: Bilateral L4-S1 MBB. Intraoperative fluoroscopy provided for 10 seconds. Single digital spot image submitted for interpretation images demonstrates posterior needle tips projecting over the expected left and right L4-S1 nerve roots. Correlate with intraoperative findings/report.
--- NOTE | 2022-01-21 16:56 | XRAY ---
10 seconds of fluoroscopy was used in surgery for a bilateral L4-S1 MBB.
[2022-01-21] MEDS ORDERED: Lactated Ringers 1,000 ML IV ONE (17:37)
== END 2022-01-21 14:55 | disposition home or self-care (01) ==
LOC: SDC-PAIN 12:18
PROVIDERS: ATTEND Psychiatry & Neurology Pain Medicine
DX: M47.816 Spondylosis without myelopathy or radiculopathy, lumbar region (principal); Z79.899 Other long term (current) drug therapy
CPT/HCPCS: 64493; 64494; 72020; 77002; J1030; J2704

== ENCOUNTER 2022-03-04 08:25 | Day surgery (SDC) | payer MEDICARE ==
[2022-03-04] MEDS ORDERED: BUPIVACAINE 0.5% VIAL IJ ONE (08:26)
[2022-03-04] MEDS ORDERED: Xylocaine 1% Vial 30 ML PF IJ ONE (08:26)
[2022-03-04] MEDS ORDERED: Depo-Medrol 40 MG/ML IM ONE (08:26)
--- NOTE | 2022-03-04 11:33 | XRAY ---
Indication: Right L4-S1 RFA. Intraoperative fluoroscopy provided for 28 seconds. 4 digital spot image submitted for interpretation demonstrates posterior needle tips projecting over the expected right L4-S1 nerve roots. Correlate with intraoperative findings/report.
[2022-03-04] MEDS ORDERED: Lactated Ringers 1,000 ML IV ONE (11:51)
--- NOTE | 2022-03-04 12:02 | XRAY ---
28 seconds fluoroscopy time used for right L4-S1 RFA.
== END 2022-03-04 10:55 | disposition home or self-care (01) ==
LOC: SDC-PAIN 08:25
PROVIDERS: ATTEND Psychiatry & Neurology Pain Medicine
DX: M47.816 Spondylosis without myelopathy or radiculopathy, lumbar region (principal); Z79.899 Other long term (current) drug therapy
CPT/HCPCS: 64635; 64636; 72100; 77002; J1030; J2001

== ENCOUNTER 2022-03-18 10:19 | Day surgery (SDC) | payer MEDICARE ==
[2022-03-18] MEDS ORDERED: BUPIVACAINE 0.5% VIAL IJ ONE (10:20)
[2022-03-18] MEDS ORDERED: Depo-Medrol 40 MG/ML IM ONE (10:20)
[2022-03-18] MEDS ORDERED: Xylocaine 1% Vial 30 ML PF IJ ONE (10:20)
[2022-03-18] MEDS ORDERED: DIPRIVAN 200 MG/20 ML IV ONE (12:18)
[2022-03-18] MEDS ORDERED: Xylocaine-Mpf 2% 5 Ml Vial ONE (12:19)
[2022-03-18] MEDS ORDERED: Lactated Ringers 1,000 ML IV ONE (13:03)
--- NOTE | 2022-03-18 19:39 | XRAY ---
Indication: Left L4-S1 RFA. Intraoperative fluoroscopy provided for 24 seconds. 4 digital spot submitted for interpretation demonstrates posterior needle tips projecting over the expected left L4-S1 nerve roots. Correlate with intraoperative findings/report.
--- NOTE | 2022-03-18 20:03 | XRAY ---
24 seconds of fluoroscopy was used in surgery for a left L4-S1 RFA.
== END 2022-03-18 12:44 | disposition home or self-care (01) ==
LOC: SDC-PAIN 10:19
PROVIDERS: ATTEND Psychiatry & Neurology Pain Medicine
DX: M47.816 Spondylosis without myelopathy or radiculopathy, lumbar region (principal); Z79.899 Other long term (current) drug therapy
CPT/HCPCS: 64635; 64636; 72100; 77002; J1030; J2001; J2704

== ENCOUNTER 2022-08-31 10:32 | Day surgery (SDC) | payer MEDICARE ==
--- NOTE | 2022-08-31 09:29 | HP ---
DATE OF SURGERY: 08/31/2022 HISTORY OF PRESENT ILLNESS: The patient is a 46-year-old who has pain, swelling, drainage over the past year and in need of excision of pilonidal cyst disease. PAST MEDICAL HISTORY: Migraines, gastroesophageal reflux disease, degenerative disc disease, anxiety and depression. He had COVID and was on a vent for six weeks back in February 2021 and stable since then. PAST SURGICAL HISTORY: Left eye trauma. MEDICATIONS: Olanzapine, methocarbamol, fluoxetine, duloxetine, gabapentin. ALLERGIES: NKDA. FAMILY HISTORY: Negative in regards to this problem. SOCIAL HISTORY: No smoking or alcohol abuse. REVIEW OF SYSTEMS: Fourteen systems reviewed. No chest pain or palpitations. Other systems negative or noncontributory as above and per preadmission questionnaire. PHYSICAL EXAMINATION: Height 5'9". BMI 34. GENERAL: No acute distress. HEENT: Sclerae nonicteric. EOMI. Oral mucous membranes moist. NECK: No JVD. CHEST: Equal excursion. CVS: Regular rate and rhythm. ABDOMEN: Soft. No peritoneal signs. EXTREMITIES: No significant edema. NEURO: Alert, oriented, moving extremities symmetrically. PSYCH: Appropriate mood and affect. SKIN: Pilonidal area drainage of cyst. IMPRESSION: Pilonidal cyst disease. I offered excision given his recurrent disease. Feel likely would probably need packing. It looks like closure would be in differential pending operative findings. General risk of bleeding or infection, risk of pain, burning or numbness. Risk of anesthesia, deep vein thrombosis, pulmonary embolism or pneumonia. Risk of nonhealing of the wound, slow healing or failure to heal possibly requiring other procedures or referrals. Importance of keeping all hair away from the wound postoperatively to reduce the risk of recurrence, packing at the base of the wound, possibility of dehiscence that may still require packing. General risk of anesthesia sedation, deep venous thrombosis, pulmonary embolism, or pneumonia but not limited to, consent obtained. Will proceed with excision of infected pilonidal cyst disease possible packing, possible flap closure.
[2022-08-31] MEDS ORDERED: CEFAZOLIN 2 GM-D5W BAG** 2 GM/50 ML ML IV ONE (11:10)
[2022-08-31] MEDS ORDERED: Lactated Ringers 1,000 ML IV ONE (11:10)
[2022-08-31] MEDS ORDERED: CEFAZOLIN 2 GM-D5W BAG** 2 GM/50 ML ML IV SCH (11:30)
[2022-08-31] MEDS ORDERED: Lactated Ringers 1,000 ML IV SCH (11:30)
[2022-08-31] MEDS ORDERED: Pepcid 20 MG VIAL IV ONE (11:49)
[2022-08-31] MEDS ORDERED: Reglan 10 MG/2 ML IV ONE (11:49)
[2022-08-31] MEDS ORDERED: Sensorcaine 0.25% 10 ML ONE (12:22)
[2022-08-31] MEDS ORDERED: Xylocaine-Mpf 2% 5 Ml Vial ONE (12:27)
[2022-08-31] MEDS ORDERED: Decadron 4 MG INJ ONE (13:22)
[2022-08-31] MEDS ORDERED: SUBLIMAZE 100 MCG/2 ML ONE (13:22)
[2022-08-31] MEDS ORDERED: BRIDION 200MG/2ML IV ONE ×2 (13:22→14:12)
[2022-08-31] MEDS ORDERED: Zemuron 100 MG/10 ML ONE (13:22)
[2022-08-31] MEDS ORDERED: TORAdol 30 mg Injection ONE (13:22)
[2022-08-31] MEDS ORDERED: Zofran 4 MG/2 ML VIAL ONE (13:22)
[2022-08-31] MEDS ORDERED: DIPRIVAN 200 MG/20 ML IV ONE (13:22)
[2022-08-31] MEDS ORDERED: TRANDATE 20 MG/4 ML SYRINGE IV ONE (14:22)
--- NOTE | 2022-08-31 15:28 | OP ---
SURGERY DATE/TIME: 08/31/2022 1324 PREOPERATIVE DIAGNOSIS: Infected, ruptured pilonidal cyst in need of excision. POSTOPERATIVE DIAGNOSIS: Infected, ruptured pilonidal cyst in need of excision. PROCEDURE: Excisional biopsy ruptured, infected pilonidal cyst (approximately 7 x 3 x 3 cm deep) with irrigation and packing. SURGEON: Dr. Hayden Lopes. ANESTHESIA: General. ESTIMATED BLOOD LOSS: Minimal. INDICATIONS: As noted above. Risks and benefits explained in detail and not limited to and consent obtained. DESCRIPTION OF PROCEDURE AND FINDINGS: The patient is taken to the operating room. General anesthesia induced. The patient is placed in prone position, appropriate padding, positioning by anesthesia and OR staff. He is prepped and draped in the usual sterile fashion. After official time out and no disagreement with planned procedure, marking out a long segment under the pilonidal area near the infection. Dissected carried down it to normal appearing subcutaneous tissue running underlying fascia. The specimen is passed off. It measured 7 cm, 2 cm wide and 2 cm deep. Hemostasis controlled with some pinpoint cautery. It was felt that there was too much infection to warrant any flap closure at this time. It was felt that it would most certainly dehisce. I feel it safer to leave this open this had been explained to the patient in the office. Good hemostasis noted. The specimen is passed off for pathology. The wound is packed with Kerlix and sterile dressing. 0.25% Marcaine local infiltrated in field pattern around the area. The patient tolerated the procedure well. There were no immediate complications. There is no family out in the waiting area to discuss the findings with. He was given a script for hydrocodone for pain control and Bactrim due to his history of infection. The patient tolerated the procedure well. There were no immediate complications.
[2022-08-31 15:51] VITALS: BP 121/87; PULSE 74; O2SAT 92
== END 2022-08-31 16:01 | disposition home or self-care (01) ==
LOC: SDC 10:32
PROVIDERS: ATTEND Surgery
DX: L05.91 Pilonidal cyst without abscess (principal)
CPT/HCPCS: J0690; J1100; J1885; J2405; J2704; J3010

== ENCOUNTER 2023-07-13 05:17 | Day surgery (SDC) | payer MEDICARE ==
[2023-07-13 06:19] VITALS: RESP 16
[2023-07-13] MEDS: Lactated Ringers 1,000 ML IV SCH (07:16)
[2023-07-13] MEDS ORDERED: Versed 2 MG/2 ML Injection ONE (07:29)
[2023-07-13] MEDS ORDERED: DIPRIVAN 200 MG/20 ML IV ONE (07:29)
[2023-07-13] MEDS ORDERED: Xylocaine-Mpf 2% 5 Ml Vial ONE (07:31)
[2023-07-13] MEDS ORDERED: DEXMEDETOMIDINE 80 MCG/20ML-NS IV ONE (07:31)
[2023-07-13 08:08] VITALS: O2SAT 94
[2023-07-13 08:25] VITALS: BP 102/76; PULSE 90; TEMP 97.4
--- NOTE | 2023-07-13 10:40 | OP ---
SURGERY DATE/TIME: 07/13/2023 0736 PREOPERATIVE DIAGNOSIS: Dysphagia. POSTOPERATIVE DIAGNOSIS: Moderate gastritis. PROCEDURE: Esophagogastroduodenoscopy with cold forceps biopsies of the gastric antrum. SURGEON: Dr. Woodson. ANESTHESIA: Medications were given by the anesthesia department. BRIEF HISTORY: The patient is a 47-year-old white male patient who presents now with complaints of dysphagia, food sticking in his mid-chest area. The patient was felt to need to have endoscopic evaluation. He was appraised of the risks of the procedure including the risk of perforation, phlebitis, untoward reaction to medication, bleeding and missed lesions. The patient verbalized his understanding and desired to have the procedure performed. DESCRIPTION OF PROCEDURE: The patient was given the medications by the anesthesia department. He had continuous pulse oximetry, ECG monitoring and intermittent blood pressure monitoring during the examination. The patient was placed in the left lateral decubitus position. A bite block was placed and the flexible Olympus gastroscope was used to intubate the oropharynx. A view of the larynx was obtained and appeared to be normal. The scope was easily introduced in the esophagus which appeared to be normal throughout its length. The stomach was entered where normal gastric rugal folds were seen and these distended nicely with insufflation of air. The scope was passed along the greater curvature of the stomach to the antrum where food stuffs were noted but no erosions or ulcerations. The pylorus was encountered and intubated. The duodenum inspected and found to be normal. The scope is withdrawn towards the stomach. Again, a retroflex view was obtained of the lesser curvature, fundus and cardia regions of the stomach and these appeared to be essentially normal. The scope was then redirected towards the gastric antrum and biopsies were obtained to rule out the presence of Helicobacter pylori-type organisms. The scope was then removed from the patient who tolerated the procedure well and was sent back to outpatient recovery in good condition. Anesthesia had noted that the patient has the appearance of severe sleep apnea. The patient will be seen in follow up in the office in one week for discussion of his results and possible further investigation of his sleep apnea issues.
== END 2023-07-13 10:35 | disposition home or self-care (01) ==
LOC: SDC 05:17
PROVIDERS: ATTEND Family Medicine
DX: K29.70 Gastritis, unspecified, without bleeding (principal); R13.10 Dysphagia, unspecified
CPT/HCPCS: J2250; J2704